=== PATIENT | male | born 1960 | race Caucasian/White ===

== ENCOUNTER 2018-03-01 16:25 | Inpatient (IN) | payer BC, SELFPAY ==
[2018-03-01] VITALS (13 sets, daily range): BP systolic 81–206; BP diastolic 64–127; PULSE 92–122; RESP 14–30; TEMP 36.7–36.9; O2SAT 93–99; BMI 30.1
--- NOTE | 2018-03-01 16:30 | EKG12_ITS ---
Test Reason : REPEAT CP Blood Pressure : / mmHG Vent. Rate : 091 BPM Atrial Rate : 091 BPM P-R Int : 184 ms QRS Dur : 088 ms QT Int : 370 ms P-R-T Axes : 048 046 039 degrees QTc Int : 455 ms Normal sinus rhythm Normal ECG Confirmed by LAURA RICE MD ([id number]), editorial project manager ISSAC VALENCIA ([id number]) on 03/03/2018 1:54:08 PM Referred By: CARI Confirmed By:LAURA RICE MD
--- NOTE | 2018-03-01 16:30 | RAD_ITS ---
STUDY: X-RAY CHEST REASON FOR EXAM: Male, 57 years old. Chest pain TECHNIQUE: Single AP portable view of the chest. COMPARISON: None. FINDINGS: Any left hilar region, there is a questionable spiculated nodule/mass measuring 2.6 x 2.6 cm The lungs are clear and expanded. There is no demonstrated pleural abnormality. Normal size heart. Normal mediastinum and blanca. Normal visualized pulmonary arteries. Normal visualized aortic arch and descending thoracic aorta. Normal visualized thoracic spine. Normal visualized ribs, clavicles, and shoulders. There is no demonstrated abnormality of the visualized soft tissue structures of the upper abdomen. RAD/Chest 1 View (Portable) IMPRESSION: No acute cardiopulmonary disease however, possible left hilar mass. Recommend CT chest to further evaluate Electronically Signed: Luis Velazquez DO at 17:13 EDT Tel , Service support ,
--- NOTE | 2018-03-01 16:37 | NURSING ---
NO OLD EKGS
--- NOTE | 2018-03-01 16:40 | CT_ITS ---
STUDY: CT ABDOMEN AND PELVIS WITH CONTRAST REASON FOR EXAM: Male, 57 years old. Right upper quadrant pain RADIATION DOSAGE (If Supplied By Facility): CTDIvol = ( 18.83 ) mGy, DLP = ( 1865.38 ) mGycm TECHNIQUE: Transaxial images were obtained from the dome of the diaphragm to the symphysis pubis with oral contrast. 100 ml of Isovue 370 contrast was administered. Sagittal and coronal images were reconstructed. Individualized dose optimization techniques were used for this CT. COMPARISON: None. FINDINGS: The visualized lung bases are unremarkable. The visualized portions of the heart are within normal limits. There is decreased attenuation of the liver consistent with steatosis. Normal gallbladder and extrahepatic biliary system. Normal spleen. Normal pancreas. Normal bilateral adrenal glands. Small nonenhancing bilateral renal cysts. No acute renal obstruction Normal visualized stomach. Normal small intestine. There are multiple colonic diverticula consistent with diverticulosis. The appendix is visualized and appears normal. Normal abdominal aorta. Normal inferior vena cava. Normal retroperitoneum. Normal urinary bladder. Normal visualized prostate gland. Normal abdominal wall. Normal osseous structures. CT/Abdomen/Pelvis WITH Contrast IMPRESSION: Grossly unremarkable gallbladder on CT. Mild fatty steatosis of the liver. Unremarkable appendix. Nonenhancing renal cysts. Electronically Signed: Luis Velazquez DO at 18:47 EDT Tel , Service support ,
[2018-03-01] MEDS: Ondansetron 4 MG/2 ML Vial IV (16:52)
[2018-03-01] MEDS: 0.9% Normal Saline 1,000 ML 125 ML IV (16:52)
[2018-03-01] MEDS: HYDROmorphone 1 MG/ML Syringe IV (16:55)
[2018-03-01 17:14] LABS: Absolute Neutrophil Count 13.5 X10^3/uL (2.0-7.7); Basophil# 0.02 X10^3/uL; Basophil% 0.1 % (0-1); Eosinophil# 0.02 X10^3/uL; Eosinophils% 0.1 % (0-5); Hematocrit 45.6 % (40-54); Hemoglobin 15.3 g/dl (13.0-16.5); Lymphocyte % 8.8 % (19-41); Mean Corp Hgb Conc 33.6 g/gl (32-36); Mean Corpuscular Hgb 29.9 pg (27.0-32.0); Mean Corpuscular Volume 89.2 fL (80-94); Mean Platelet Vol. 10.5 fl (6.2-12.0); Monocyte# 0.89 X10^3/uL; Monocyte% 5.6 % (0-10); Neutrophil # 13.45 X10^3/uL (2.7-7.7); Neutrophil % 85.1 % (47-70); Platelet Count 258 K/mm3 (150-450); RBC Distribution Width CV 13.7 % (11.6-14.6); RBC Distribution Width SD 44.3 fl (35.1-43.9); Red Blood Count 5.11 M/mm3 (4.6-6.2); White Blood Count 15.8 K/mm3 (4.4-11.0)
[2018-03-01 17:35] LABS: POSITIVE COUNT NO; POSITIVE DIFFERENTIAL NO; POSITIVE MORPHOLOGY NO
--- NOTE | 2018-03-01 17:35 | CT_ITS ---
STUDY: CTA CHEST REASON FOR EXAM: Male, 57 years old. Right upper quadrant pain and chest pain RADIATION DOSAGE (If Supplied By Facility): CTDIvol = ( 18.83 ) mGy, DLP = ( 1865.38 ) mGycm TECHNIQUE: The examination was performed with the intravenous administration of 100 ml of Isovue 370 contrast material. Post-processing of the angiographic images was performed, with multiplanar reformation and 3D reconstruction. Individualized dose optimization techniques were used for this CT. COMPARISON: None. FINDINGS: Unremarkable thyroid Normal enhancement of the main pulmonary artery and right and left pulmonary arteries. Normal enhancement of the bilateral peripheral pulmonary arteries. There is no demonstrated pulmonary embolism. Normal thoracic aorta and visualized great vessels. There is no demonstrated aortic dissection. Normal heart and pericardium. Normal mediastinum. Normal hilar regions. Normal visualized trachea and bronchi. The lungs are well expanded. Normal pulmonary parenchyma. Normal pleura. Normal chest wall structures. Normal osseous structures. Normal visualized upper abdomen. CT/CTA Chest W/WO Contrast IMPRESSION: Normal CTA chest examination, without a demonstrated pulmonary embolism or arterial dissection. Electronically Signed: Luis Velazquez DO at 18:48 EDT Tel , Service support ,
[2018-03-01 17:41] LABS: AST(SGOT) 22 U/L (15-37); Alanine Aminotransfer ALT/SGPT 48 U/L (16-61); Alkaline Phosphatase 68 U/L (45-117); Anion Gap 10 (5-15); BUN 10 mg/dL (7-18); BUN/Creat Ratio 7.9 RATIO (10-20); Bilirubin, Direct 0.13 mg/dL (0.00-0.30); Calcium,Total 9.3 mg/dL (8.5-10.1); Chloride 104 mmol/L (98-107); Creatinine, Serum 1.26 mg/dL (0.70-1.30); EST Glomerular Filtration Rate 63 mL/min (>60); Est Glom Filt Rate - Afr Amer 76 mL/min (>60); Estimated Creatinine Clearance 66.24 ml/min; Globulin 3.5 g/dL (2.2-4.2); Glucose 116 mg/dL (74-106); Lipase 99 U/L (73-393); Potassium 3.7 mmol/L (3.5-5.1); Protein, Total 7.5 g/dL (6.4-8.2); Sodium Level 141 mmol/L (136-145)
--- NOTE | 2018-03-01 17:46 | EKG12_ITS ---
Test Reason : CP Blood Pressure : / mmHG Vent. Rate : 108 BPM Atrial Rate : 108 BPM P-R Int : 178 ms QRS Dur : 080 ms QT Int : 334 ms P-R-T Axes : 043 003 046 degrees QTc Int : 447 ms Sinus tachycardia Otherwise normal ECG Confirmed by KRYSTAL CHAVIRA, LAURA ([id number]), non linear editor ISSAC VALENCIA ([id number]) on 03/03/2018 1:54:23 PM Referred By: CARI Confirmed By:LAURA RICE MD
[2018-03-01 18:00] LABS: D-Dimer Quantitative (DVT/PE) < 0.27 FEU/ug/m (0.27-0.49)
[2018-03-01 18:05] LABS: Lactic Acid 2.3 mmol/L (0.4-2.0)
--- NOTE | 2018-03-01 19:18 | ED.VISSUMM ---
- ER Visit Summary Date of Service: 03/01/18 Chief Complaint: [Chest pain] History of Present Illness: The patient is a 57 M [presents to the emergency department complaint of chest pain and abdominal pain. Patient states that he woke up at 4 AM with discomfort that was retrosternal and upper abdomen. Patient states the pain was initially intermittent but became more continuous. He describes a sharp pain that currently rates 9 out of 10. Patient states the pain is now underneath his right ribs. Patient states the pain is not pleuritic. He did feel somewhat short of breath with it. He denies any nausea or vomiting. There was no radiation of the pain.] Physical Examination: [HEENT-PERRLA, EOMI. Cranial nerves II through XII grossly intact. TMs clear. Mucous membranes moist. No adenopathy. Cardiovascular-regular rate and rhythm without murmur or ectopy Lungs-clear to auscultation, chest wall stable without crepitus or subcu emphysema Abdomen-normoactive bowel sounds, soft. Patient has tenderness to palpation over right upper quadrant with some guarding. Patient has some mild tenderness over the epigastric region. There is no rebound, rigidity, or perineal signs. Extremities-intact ?4, normal range of motion, normal pulses, atraumatic] Test Results: [EKG obtained on arrival shows sinus tachycardia with a ventricular rate of 108 bpm with no acute ST segment changes. CBC with differential of 15.8, hemoglobin 15 hematocrit 45.6, platelets 258. Chemistries unremarkable. LFTs were normal. Lipase was normal at 99. Troponin was normal. D-dimer was normal at less than 0.27. Lactate was slightly elevated 2.3. On chest x-ray patient was thought to have a questionable hilar mass and CT scan of the chest was recommended. CTA of the chest obtained was normal. CT scan of the abdomen pelvis with IV and p.o. contrast showed nothing significant. The appendix was visualized and was normal. The gallbladder appeared normal. No free air noted. No evidence for bowel obstruction.] Emergency Department Course and Treatment: [Patient initially was medicated with Dilaudid and Zofran. Patient did have an episode where he had sudden onset of some more severe pain and became diaphoretic and hypotensive but I suspect was likely a vasovagal episode that resolved quickly with laying the patient flat.] Treatment Plan: [Admit for further workup and evaluation] patient may need further evaluation including possibly gallbladder ultrasound, HIDA scan, stress testing Disposition: [Admit] Impression: [Chest pain-rule out acute coronary syndrome Abdominal pain-etiology uncertain.] This note was generated with [employer] dictation software. It may contain incorrect words, spelling, and punctuation that were not noted in review of the chart prior to signing ED Disposition - Plan for ED Patient: Chief Complaint: Chest Pain Referrals: Genna Sheppard DO [Primary Care Provider] -
--- NOTE | 2018-03-01 19:29 | PCM.HP.STD ---
Problem List (1) Chest pain Status: Acute (2) Depression Status: Chronic (3) Anxiety Status: Chronic (4) Hyperlipidemia Status: Chronic (5) Hypertension Status: Chronic History of Present Illness Date of Admission: 03/01/18 Chief Complaint: Chest pain. The patient is a 57 year old M with past medical history as mentioned above presented to the emergency room because of chest pain. His symptoms started around 4 AM this morning when he woke up from sleep because of chest pain, retrosternal chest pain, sharp pain, 9 out of 10 in severity, not radiating, associated with mild shortness of breath, initially was severe and then start to ease up but never resolved and without aggravating or relieving factors. He tried Pepto-Bismol which did not help. Couple of hours later, he feels a little bit better, went to work but he continued to have this persistent pain and late afternoon, the pain started to go worse and he decided to come to the emergency room. Later this afternoon, he mentioned that the pain was in the same location but went to his right upper quadrant region. He denied associated nausea vomiting. He denied sweating, dizziness or lightheadedness. Upon arrival to ER, patient was afebrile, tachycardic, blood pressure was repeated. Later, blood pressure started to improve. Routine blood work was remarkable for leukocytosis, otherwise normal. LFT and lipase were unremarkable. D-dimer was normal. Lactic acid was 2.3. Troponin was negative. EKG revealed sinus tachycardia without evidence of acute ischemic changes. Chest x-ray revealed questionable left hilar mass, no acute infiltrate or effusion. CTA chest revealed no evidence of PE, dissection, no evidence of lung mass or hilar mass. CT scan abdomen and pelvis with contrast revealed no evidence of acute intra-abdominal pathology, revealed renal cysts. He is being admitted for chest pain for evaluation as well as leukocytosis and slightly elevated lactic acid. Past Medical History Past Medical History (Chronic Problems): Chronic Problems Depression (Chronic) Anxiety (Chronic) Hyperlipidemia (Chronic) Hypertension (Chronic) Allergies No Known Allergies Allergy (Verified 03/01/18 16:30) Home Medications: Ambulatory Orders Medication Instructions Recorded Atorvastatin Calcium [Lipitor] 20 mg PO DAILY 02/02/17 Losartan Potassium [Cozaar] 50 mg PO DAILY 02/02/17 Risperidone [Risperdal] 0.25 mg PO BID 02/02/17 Venlafaxine XR [Effexor Xr] 225 mg PO DAILY 02/02/17 Surgical History: herniorrhaphy, - - Rotator cuff surgery. Psychiatric History: Anxiety, Depression Smoking Status: Former smoker Alcohol: Occasional Drugs: None - *Family History Maternal History Items: No pertinent history Paternal History Items: No pertinent history Review of Systems Constitutional: Denies: Anorexia, Chills, Fever, Weakness Eyes: Denies: Blurred vision, Double vision, Drainage, Redness HEENT: Denies: Difficulty Hearing, Ear Pain, Eye Pain, Nasal Congestion, Sore Throat Cardiovascular: Reports: Chest Pain. Denies: Edema, Heaviness, Light Headedness, Orthopnea, Palpitations, Syncope Respiratory: Reports: Shortness of Breath. Denies: Cough, Hemoptysis, Pleuritic Pain, Sputum production, Wheezing Gastrointestinal: Denies: Abdominal Pain, Constipation, Diarrhea, Nausea, Vomiting Genitourinary: Denies: Dysuria, Frequency, Hematuria Musculoskeletal: Denies: Arm Pain, Back Pain, Foot Pain Skin: Denies: Dryness, Rash Neurological: Denies: Balance problems, Double vision, Change in Speech, Slurred speech, Confusion, Focal weakness, Headaches, Incoordination, Numbness Psychiatric: Reports: Anxiety, Depression Endocrine: Denies: Change in Body Habitus, Polydipsia VTE Information - Inpt Only VTE Present on Admission: No VTE Mechan Device Prophylaxis: None VTE Pharm Prophylaxis ordered?: Yes Patient Problems: Active and Suspected Problems Chest pain (Acute) - Physical Exam General: Alert, Oriented x3, Cooperative, No apparent distress HEENT: Atraumatic, PERRLA, EOMI, Normocephalic Oral: Moist Mucosa, No Gingival or Mucosal Lesions/ Ulcerations Neck: Supple, No JVD, Negative Carotid Bruits, Trachea Midline, Thyroid Normal Size and Texture Lungs: Clear to auscultation, No rhonchi, No wheeze, No rales, Diminished Cardiovascular: Regular rate, Regular Rhythm, Normal S1, Normal S2, No murmurs, PMI Normal, Tachycardic Abdomen: Bowel Sounds Present, Soft, Non Tender, Non-Distended, No Hepato-splenomegaly Extremities: No clubbing, No cyanosis, No edema Skin: No rashes, No breakdown Lymphatic: No Cervical, Supraclavicular, or Inguinal Adenopathy Neurological: Cranial nerves II-XII grossly intact, Motor Exam 5/5 strength throughout Psych/Mental Status: Normal Affect, Appropriate, Alert and oriented to time, place, person, mood and affect Vital Signs Temp Pulse Resp BP Pulse Ox 98.1 F 122 H 30 H 151/97 H 93 03/01/18 16:27 03/01/18 18:44 03/01/18 18:44 03/01/18 18:44 03/01/18 18:44 Oxygen Flow Rate (L/min) 2 Oxygen Delivery Method Nasal Cannula Weight: 203 lb 11.314 oz Body Mass Index (BMI) 30.0 Laboratory Tests Past 24 Hrs 03/01/18 03/01/18 03/01/18 16:37 16:37 16:37 WBC 15.8 H RBC 5.11 Hgb 15.3 Hct 45.6 MCV 89.2 MCH 29.9 MCHC 33.6 RDW 13.7 RDW Differential 44.3 H Plt Count 258 MPV 10.5 Immature Gran % (Auto) 0.300 Neut % (Auto) 85.1 H Lymph % (Auto) 8.8 L [place] % (Auto) 5.6 Eos % (Auto) 0.1 Baso % (Auto) 0.1 Absolute Neuts (auto) 13.5 H Absolute Lymphs (auto) 1.40 Total Counted Not Reportable D-Dimer Quant (PE/DVT) < 0.27 L Sodium 141 Potassium 3.7 Chloride 104 Carbon Dioxide 27.0 Anion Gap 10 BUN 10 Creatinine 1.26 Estim Creat Clear Calc 66.24 Est GFR (MDRD) Af Amer 76 Est GFR (MDRD) Non-Af 63 BUN/Creatinine Ratio 7.9 L Glucose 116 H Lactic Acid Calcium 9.3 Total Bilirubin 0.60 Direct Bilirubin 0.13 AST 22 ALT 48 Alkaline Phosphatase 68 Troponin I < 0.015 Total Protein 7.5 Albumin 4.0 Globulin 3.5 Lipase 99 03/01/18 16:48 WBC RBC Hgb Hct MCV MCH MCHC RDW RDW Differential Plt Count MPV Immature Gran % (Auto) Neut % (Auto) Lymph % (Auto) [place] % (Auto) Eos % (Auto) Baso % (Auto) Absolute Neuts (auto) Absolute Lymphs (auto) Total Counted D-Dimer Quant (PE/DVT) Sodium Potassium Chloride Carbon Dioxide Anion Gap BUN Creatinine Estim Creat Clear Calc Est GFR (MDRD) Af Amer Est GFR (MDRD) Non-Af BUN/Creatinine Ratio Glucose Lactic Acid 2.3 H Calcium Total Bilirubin Direct Bilirubin AST ALT Alkaline Phosphatase Troponin I Total Protein Albumin Globulin Lipase Clinical Impression(s) from Imaging Studies Chest X-Ray 03/01/18 16:30 IMPRESSION: No acute cardiopulmonary disease however, possible left hilar mass. Recommend CT chest to further evaluate Electronically Signed: Luis Velazquez DO at 17:13 EDT Tel , Service support , Abdomen/Pelvis CT 03/01/18 16:40 IMPRESSION: Grossly unremarkable gallbladder on CT. Mild fatty steatosis of the liver. Unremarkable appendix. Nonenhancing renal cysts. Electronically Signed: Luis Velazquez DO at 18:47 EDT Tel , Service support , Chest CTA 03/01/18 17:35 IMPRESSION: Normal CTA chest examination, without a demonstrated pulmonary embolism or arterial dissection. Electronically Signed: Luis Velazquez DO at 18:48 EDT Tel , Service support , Assessment/Plan All Active Problems Chest pain (Acute) This is a 57 years old male patient presented to the emergency room because of chest pain, found to have leukocytosis and and slightly elevated lactic acid and he is being admitted for evaluation. #1 chest pain/retrosternal pain: Unclear etiology, it is cardiac versus GI etiology. Cardiac risk factors are age, past history of smoking, hypertension hyperlipidemia. No family history of premature CAD. EKG revealed sinus tachycardia, no acute ischemic changes. Troponin is negative. CTA chest negative for PE or dissection. CT scan abdomen and pelvis showed no acute intra-abdominal pathology. LFT and lipase were unremarkable. Patient is slightly tachycardic and hypertensive. Then: Admit to PCU for observation, cardiac monitoring, serial cardiac enzymes, IV fluids, IV morphine as needed, IV antiemetics, IV Pepcid twice daily, Mylanta as needed, repeat CBC and CMP as well as lipase tomorrow morning, nuclear stress test tomorrow morning. #2 leukocytosis/mild lactic acidosis: Without evidence of infection. Chest x-ray showed no acute infiltrate. Urinalysis pending. He denies any other symptoms. He is afebrile. This is probably due to stress, pain and anxiety. Plan to follow urinalysis, IV fluids, repeat lactic acid 3 hours, repeat CBC tomorrow morning. #3 hypertension: Upon arrival to ER, blood pressure was elevated, improved over time. Plan to continue losartan and start IV hydralazine as needed. #4 hyperlipidemia: Continue Lipitor. #5 anxiety/depression: Continue Effexor and risperidone. #6 DVT prophylaxis subcu Lovenox. This note was generated with [employer] dictation software. It may contain incorrect words, spelling, and punctuation that were not noted in checking the note before signing. Code Visit OBSV E&M: [id number] Initial observation care L3
--- NOTE | 2018-03-01 19:39 | HP.PCM_ITS ---
Problem List (1) Chest pain Status: Acute (2) Depression Status: Chronic (3) Anxiety Status: Chronic (4) Hyperlipidemia Status: Chronic (5) Hypertension Status: Chronic History of Present Illness Date of Admission: 03/01/18 Chief Complaint: Chest pain. The patient is a 57 year old M with past medical history as mentioned above presented to the emergency room because of chest pain. His symptoms started around 4 AM this morning when he woke up from sleep because of chest pain, retrosternal chest pain, sharp pain, 9 out of 10 in severity, not radiating, associated with mild shortness of breath, initially was severe and then start to ease up but never resolved and without aggravating or relieving factors. He tried Pepto-Bismol which did not help. Couple of hours later, he feels a little bit better, went to work but he continued to have this persistent pain and late afternoon, the pain started to go worse and he decided to come to the emergency room. Later this afternoon, he mentioned that the pain was in the same location but went to his right upper quadrant region. He denied associated nausea vomiting. He denied sweating, dizziness or lightheadedness. Upon arrival to ER, patient was afebrile, tachycardic, blood pressure was repeated. Later, blood pressure started to improve. Routine blood work was remarkable for leukocytosis, otherwise normal. LFT and lipase were unremarkable. D-dimer was normal. Lactic acid was 2.3. Troponin was negative. EKG revealed sinus tachycardia without evidence of acute ischemic changes. Chest x-ray revealed questionable left hilar mass, no acute infiltrate or effusion. CTA chest revealed no evidence of PE, dissection, no evidence of lung mass or hilar mass. CT scan abdomen and pelvis with contrast revealed no evidence of acute intra-abdominal pathology, revealed renal cysts. He is being admitted for chest pain for evaluation as well as leukocytosis and slightly elevated lactic acid. Past Medical History Past Medical History (Chronic Problems): Chronic Problems Depression (Chronic) Anxiety (Chronic) Hyperlipidemia (Chronic) Hypertension (Chronic) Allergies No Known Allergies Allergy (Verified 03/01/18 16:30) Home Medications: Ambulatory Orders Medication Instructions Recorded Atorvastatin Calcium [Lipitor] 20 mg PO DAILY 02/02/17 Losartan Potassium [Cozaar] 50 mg PO DAILY 02/02/17 Risperidone [Risperdal] 0.25 mg PO BID 02/02/17 Venlafaxine XR [Effexor Xr] 225 mg PO DAILY 02/02/17 Surgical History: herniorrhaphy, - - Rotator cuff surgery. Psychiatric History: Anxiety, Depression Smoking Status: Former smoker Alcohol: Occasional Drugs: None - *Family History Maternal History Items: No pertinent history Paternal History Items: No pertinent history Review of Systems Constitutional: Denies: Anorexia, Chills, Fever, Weakness Eyes: Denies: Blurred vision, Double vision, Drainage, Redness HEENT: Denies: Difficulty Hearing, Ear Pain, Eye Pain, Nasal Congestion, Sore Throat Cardiovascular: Reports: Chest Pain. Denies: Edema, Heaviness, Light Headedness , Orthopnea, Palpitations, Syncope Respiratory: Reports: Shortness of Breath. Denies: Cough, Hemoptysis, Pleuritic Pain, Sputum production, Wheezing Gastrointestinal: Denies: Abdominal Pain, Constipation, Diarrhea, Nausea, Vomiting Genitourinary: Denies: Dysuria, Frequency, Hematuria Musculoskeletal: Denies: Arm Pain, Back Pain, Foot Pain Skin: Denies: Dryness, Rash Neurological: Denies: Balance problems, Double vision, Change in Speech, Slurred speech, Confusion, Focal weakness, Headaches, Incoordination, Numbness Psychiatric: Reports: Anxiety, Depression Endocrine: Denies: Change in Body Habitus, Polydipsia VTE Information - Inpt Only VTE Present on Admission: No VTE Mechan Device Prophylaxis: None VTE Pharm Prophylaxis ordered?: Yes Patient Problems: Active and Suspected Problems Chest pain (Acute) - Physical Exam General: Alert, Oriented x3, Cooperative, No apparent distress HEENT: Atraumatic, PERRLA, EOMI, Normocephalic Oral: Moist Mucosa, No Gingival or Mucosal Lesions/ Ulcerations Neck: Supple, No JVD, Negative Carotid Bruits, Trachea Midline, Thyroid Normal Size and Texture Lungs: Clear to auscultation, No rhonchi, No wheeze, No rales, Diminished Cardiovascular: Regular rate, Regular Rhythm, Normal S1, Normal S2, No murmurs, PMI Normal, Tachycardic Abdomen: Bowel Sounds Present, Soft, Non Tender, Non-Distended, No Hepato- splenomegaly Extremities: No clubbing, No cyanosis, No edema Skin: No rashes, No breakdown Lymphatic: No Cervical, Supraclavicular, or Inguinal Adenopathy Neurological: Cranial nerves II-XII grossly intact, Motor Exam 5/5 strength throughout Psych/Mental Status: Normal Affect, Appropriate, Alert and oriented to time, place, person, mood and affect Vital Signs Temp Pulse Resp BP Pulse Ox 98.1 F 122 H 30 H 151/97 H 93 03/01/18 16:27 03/01/18 18:44 03/01/18 18:44 03/01/18 18:44 03/01/18 18:44 Oxygen Flow Rate (L/min) 2 Oxygen Delivery Method Nasal Cannula Weight: 203 lb 11.314 oz Body Mass Index (BMI) 30.0 Laboratory Tests Past 24 Hrs 03/01/18 03/01/18 03/01/18 16:37 16:37 16:37 WBC 15.8 H RBC 5.11 Hgb 15.3 Hct 45.6 MCV 89.2 MCH 29.9 MCHC 33.6 RDW 13.7 RDW Differential 44.3 H Plt Count 258 MPV 10.5 Immature Gran % (Auto) 0.300 Neut % (Auto) 85.1 H Lymph % (Auto) 8.8 L [place] % (Auto) 5.6 Eos % (Auto) 0.1 Baso % (Auto) 0.1 Absolute Neuts (auto) 13.5 H Absolute Lymphs (auto) 1.40 Total Counted Not Reportable D-Dimer Quant (PE/DVT) < 0.27 L Sodium 141 Potassium 3.7 Chloride 104 Carbon Dioxide 27.0 Anion Gap 10 BUN 10 Creatinine 1.26 Estim Creat Clear Calc 66.24 Est GFR (MDRD) Af Amer 76 Est GFR (MDRD) Non-Af 63 BUN/Creatinine Ratio 7.9 L Glucose 116 H Lactic Acid Calcium 9.3 Total Bilirubin 0.60 Direct Bilirubin 0.13 AST 22 ALT 48 Alkaline Phosphatase 68 Troponin I < 0.015 Total Protein 7.5 Albumin 4.0 Globulin 3.5 Lipase 99 03/01/18 16:48 WBC RBC Hgb Hct MCV MCH MCHC RDW RDW Differential Plt Count MPV Immature Gran % (Auto) Neut % (Auto) Lymph % (Auto) [place] % (Auto) Eos % (Auto) Baso % (Auto) Absolute Neuts (auto) Absolute Lymphs (auto) Total Counted D-Dimer Quant (PE/DVT) Sodium Potassium Chloride Carbon Dioxide Anion Gap BUN Creatinine Estim Creat Clear Calc Est GFR (MDRD) Af Amer Est GFR (MDRD) Non-Af BUN/Creatinine Ratio Glucose Lactic Acid 2.3 H Calcium Total Bilirubin Direct Bilirubin AST ALT Alkaline Phosphatase Troponin I Total Protein Albumin Globulin Lipase Clinical Impression(s) from Imaging Studies Chest X-Ray 03/01/18 16:30 IMPRESSION: No acute cardiopulmonary disease however, possible left hilar mass. Recommend CT chest to further evaluate Electronically Signed: Luis Velazquez DO at 17:13 EDT Tel , Service support , Abdomen/Pelvis CT 03/01/18 16:40 IMPRESSION: Grossly unremarkable gallbladder on CT. Mild fatty steatosis of the liver. Unremarkable appendix. Nonenhancing renal cysts. Electronically Signed: Luis Velazquez DO at 18:47 EDT Tel , Service support , Chest CTA 03/01/18 17:35 IMPRESSION: Normal CTA chest examination, without a demonstrated pulmonary embolism or arterial dissection. Electronically Signed: Luis Velazquez DO at 18:48 EDT Tel , Service support , Assessment/Plan All Active Problems Chest pain (Acute) This is a 57 years old male patient presented to the emergency room because of chest pain, found to have leukocytosis and and slightly elevated lactic acid and he is being admitted for evaluation. #1 chest pain/retrosternal pain: Unclear etiology, it is cardiac versus GI etiology. Cardiac risk factors are age, past history of smoking, hypertension hyperlipidemia. No family history of premature CAD. EKG revealed sinus tachycardia, no acute ischemic changes. Troponin is negative. CTA chest negative for PE or dissection. CT scan abdomen and pelvis showed no acute intra -abdominal pathology. LFT and lipase were unremarkable. Patient is slightly tachycardic and hypertensive. Then: Admit to PCU for observation, cardiac monitoring, serial cardiac enzymes, IV fluids, IV morphine as needed, IV antiemetics, IV Pepcid twice daily, Mylanta as needed, repeat CBC and CMP as well as lipase tomorrow morning, nuclear stress test tomorrow morning. #2 leukocytosis/mild lactic acidosis: Without evidence of infection. Chest x- ray showed no acute infiltrate. Urinalysis pending. He denies any other symptoms. He is afebrile. This is probably due to stress, pain and anxiety. Plan to follow urinalysis, IV fluids, repeat lactic acid 3 hours, repeat CBC tomorrow morning. #3 hypertension: Upon arrival to ER, blood pressure was elevated, improved over time. Plan to continue losartan and start IV hydralazine as needed. #4 hyperlipidemia: Continue Lipitor. #5 anxiety/depression: Continue Effexor and risperidone. #6 DVT prophylaxis subcu Lovenox. This note was generated with [employer] dictation software. It may contain incorrect words, spelling, and punctuation that were not noted in checking the note before signing. Code Visit OBSV E&M: 00141 Initial observation care L3
--- NOTE | 2018-03-01 19:40 | NURSING ---
Called ER rn utilization management um Erica at this time to inform that PCU is ready for admission at 194
[2018-03-01 19:48] LABS: Bacteria 0 SEEN /hpf (None Seen); Mucous, Urine 0 SEEN /hpf (<or=2+); White Blood Cells 0 SEEN /hpf (0-5)
[2018-03-01 19:53] LABS: Color, Urine Yellow (Yellow); Glucose, Dipstick Normal (Normal); Ketone-Dipstick Negative (Negative); Leukocyte Esterase-Dipstick Negative /ul (Negative); Nitrite-Dipstick Negative (Negative); Occult Blood-Urine 25 /ul (Negative); Protein-Dipstick 15 mg/dl (Negative); Urine Bilirubin Dipstick Negative (Negative); Urine Clarity Clear (Clear); Urine Urobilinogen Normal (Normal)
--- NOTE | 2018-03-01 20:00 | EKG12_ITS ---
Test Reason : CHEST PAIN Blood Pressure : / mmHG Vent. Rate : 106 BPM Atrial Rate : 106 BPM P-R Int : 194 ms QRS Dur : 084 ms QT Int : 332 ms P-R-T Axes : 043 009 030 degrees QTc Int : 441 ms Sinus tachycardia Otherwise normal ECG When compared with ECG of 01-MAR-2018 17:40, MANUAL COMPARISON REQUIRED, DATA IS UNCONFIRMED Confirmed by KRYSTAL CHAVIRA, LAURA ([id number]), desk editor ISSAC VALENCIA ([id number]) on 03/07/2018 2:14:19 PM Referred By: ALEKSANDAR Confirmed By:LAURA RICE MD
[2018-03-01 20:22] LABS: Red Blood Cells-Urine 0-5 SEEN /hpf (0-5); Squamous Epithelial Cells - UA 0-5 SEEN /hpf (0-5)
[2018-03-01 21:07] LABS: Reflex Lactate? Y
--- NOTE | 2018-03-01 21:20 | EKG12_ITS ---
Test Reason : CHEST PAIN Blood Pressure : / mmHG Vent. Rate : 104 BPM Atrial Rate : 104 BPM P-R Int : 194 ms QRS Dur : 084 ms QT Int : 336 ms P-R-T Axes : 045 018 022 degrees QTc Int : 441 ms Sinus tachycardia Otherwise normal ECG When compared with ECG of 01-MAR-2018 21:26, MANUAL COMPARISON REQUIRED, DATA IS UNCONFIRMED Confirmed by KRYSTAL CHAVIRA, LAURA ([id number]), mapping editor ISSAC VALENCIA ([id number]) on 03/07/2018 2:14:06 PM Referred By: ALEKSANDAR Confirmed By:LAURA RICE MD
[2018-03-01] MEDS: Atorvastatin Calcium 20 MG Tablet PO (21:29)
[2018-03-01] MEDS: 0.9% Normal Saline 1,000 ML 100 ML IV (21:29)
[2018-03-01] MEDS: Morphine 2 MG/ML Syringe IV (21:29)
[2018-03-01 22:08] LABS: Lactic Acid 1.8 mmol/L (0.4-2.0)
--- NOTE | 2018-03-01 22:48 | EKG12_ITS ---
Test Reason : ADM EKG Blood Pressure : / mmHG Vent. Rate : 107 BPM Atrial Rate : 107 BPM P-R Int : 192 ms QRS Dur : 082 ms QT Int : 338 ms P-R-T Axes : 036 004 032 degrees QTc Int : 451 ms Sinus tachycardia Otherwise normal ECG When compared with ECG of 01-MAR-2018 17:40, MANUAL COMPARISON REQUIRED, DATA IS UNCONFIRMED Confirmed by KRYSTAL CHAVIRA, LAURA ([id number]), editor newspaper ISSAC VALENCIA ([id number]) on 03/07/2018 2:14:31 PM Referred By: VENITA Confirmed By:LAURA RICE MD
[2018-03-01] MEDS: Mag Hydrox/Al Hydrox/Simeth 30 ML UDC 15 ML PO (22:53)
[2018-03-01] MEDS: RisperiDONE 0.25 MG Tablet PO (22:58)
[2018-03-01] MEDS: Acetaminophen 325 MG Tablet 650 MG PO (23:47)
[2018-03-02] VITALS (14 sets, daily range): BP systolic 132–179; BP diastolic 81–102; PULSE 93–111; RESP 14–18; TEMP 36.8–37.7; O2SAT 93–98
--- NOTE | 2018-03-02 05:55 | EKG12_ITS ---
Test Reason : AM EKG Blood Pressure : / mmHG Vent. Rate : 101 BPM Atrial Rate : 101 BPM P-R Int : 190 ms QRS Dur : 086 ms QT Int : 348 ms P-R-T Axes : 047 013 035 degrees QTc Int : 451 ms Sinus tachycardia Otherwise normal ECG When compared with ECG of 01-MAR-2018 22:41, MANUAL COMPARISON REQUIRED, DATA IS UNCONFIRMED Confirmed by KRYSTAL CHAVIRA, LAURA ([id number]), design editor ISSAC VALENCIA ([id number]) on 03/07/2018 2:13:35 PM Referred By: ALEKSANDAR Confirmed By:LAURA RICE MD
[2018-03-02 06:09] LABS: International Normalized Ratio 1.1; Partial Thromboplast Time 26.5 Seconds (24.1-36.2); Prothrombin Time (Protime)PT. 14.3 SECONDS (11.7-14.9)
[2018-03-02] MEDS: Acetaminophen 325 MG Tablet 650 MG PO ×2 (06:23→21:05)
[2018-03-02] MEDS: Aspirin E.C. 81 MG Tablet PO (06:23)
[2018-03-02] MEDS: 0.9% Normal Saline 1,000 ML 100 ML IV ×2 (06:23→17:42)
[2018-03-02] MEDS: Losartan Potassium 50 MG Tablet PO (06:24)
[2018-03-02 06:45] LABS: Absolute Lymphocyte Count 1.63 X10^3/ul (0.83-4.51); Absolute Neutrophil Count 11.7 X10^3/uL (2.0-7.7); Basophil# 0.02 X10^3/uL; Basophil% 0.1 % (0-1); Eosinophil# 0.03 X10^3/uL; Eosinophils% 0.2 % (0-5); Hematocrit 40.9 % (40-54); Hemoglobin 13.6 g/dl (13.0-16.5); Lymphocyte # 1.63 X10^3/ul (4.0); Lymphocyte % 10.9 % (19-41); Mean Corp Hgb Conc 33.3 g/gl (32-36); Mean Corpuscular Hgb 30.1 pg (27.0-32.0); Mean Corpuscular Volume 90.5 fL (80-94); Mean Platelet Vol. 10.4 fl (6.2-12.0); Monocyte# 1.56 X10^3/uL; Monocyte% 10.4 % (0-10); Neutrophil # 11.74 X10^3/uL (2.7-7.7); Neutrophil % 78.1 % (47-70); Platelet Count 218 K/mm3 (150-450); RBC Distribution Width CV 13.8 % (11.6-14.6); RBC Distribution Width SD 45.4 fl (35.1-43.9); Red Blood Count 4.52 M/mm3 (4.6-6.2)
[2018-03-02 06:50] LABS: AST(SGOT) 25 U/L (15-37); Alanine Aminotransfer ALT/SGPT 48 U/L (16-61); Albumin, Serum 3.2 g/dL (3.2-5.0); Alkaline Phosphatase 56 U/L (45-117); Anion Gap 6 (5-15); BUN 12 mg/dL (7-18); BUN/Creat Ratio 10.5 RATIO (10-20); Calcium,Total 8.3 mg/dL (8.5-10.1); Chloride 106 mmol/L (98-107); Creatinine, Serum 1.14 mg/dL (0.70-1.30); EST Glomerular Filtration Rate 71 mL/min (>60); Est Glom Filt Rate - Afr Amer 86 mL/min (>60); Estimated Creatinine Clearance 73.22 ml/min; Globulin 3.2 g/dL (2.2-4.2); Glucose 115 mg/dL (74-106); Lipase 95 U/L (73-393); Potassium 3.9 mmol/L (3.5-5.1); Protein, Total 6.4 g/dL (6.4-8.2); Sodium Level 141 mmol/L (136-145)
[2018-03-02 06:56] LABS: Differential Indicated SCAN CRITERIA MET; POSITIVE COUNT NO; POSITIVE DIFFERENTIAL YES; POSITIVE MORPHOLOGY NO
[2018-03-02 07:04] LABS: Differential Comment SCANNED
[2018-03-02] MEDS: Morphine 2 MG/ML Syringe IV ×2 (11:34→21:05)
[2018-03-02] MEDS: 0.9% NaCl Peripheral Flush Adult/Peds IV ×2 (11:34→21:05)
--- NOTE | 2018-03-02 12:02 | STRESSREP ---
Stress Test Report Pharmacologic myocardial perfusion stress test. 57-year-old man with a history of chest pain. Medications: Aspirin Lipitor Lovenox famotidine losartan. Stress protocol: Resting EKG demonstrates normal sinus rhythm with a rate of 93 bpm normal intervals and noted resting blood pressure is 152/102 mmHg. 0.4 mg of regadenoson was infused per usual protocol followed by Intravenous and flush injection continuous EKG monitoring was performed the maximum heart rate attained was 120 bpm which was 72% of maximum predicted heart rate the maximum workload attained was 1 metabolic equivalent. At rest were no ST or T-wave changes noted suggest abnormal flow reserve at peak infusion no ST or T-wave changes were noted suggest abnormal flow reserve. The resting blood pressure is 150-102 and the final blood pressure was 152/98 mmHg. Myocardial perfusion protocol. 14.1 mCi of technetium 99m sestamibi was injected at rest. 0.4 mg regadenoson was infused per usual protocol. Peak infusion 41.6 mCi of technetium 99m sestamibi was injected stress images were obtained stress and rest images were reconstructed and compared in the short axis vertical long and horizontal long axis. Gated images were also obtained Perfusion SPECT analysis: Review of the stress images demonstrate normal uptake of tracer noted in all areas of the myocardium. The resting images similarly demonstrate normal uptake of tracer noted in all areas of the myocardium. No areas of reversibility are noted suggest ischemia no previous infarct is noted. Gated SPECT analysis: The gated ejection fraction is noted to be 57%. Conclusion: Normal pharmacologic myocardial perfusion stress test. Preserved ejection fraction.
--- NOTE | 2018-03-02 12:08 | PCM.PN.HOSP ---
Patient Problems: Active and Suspected Problems Chest pain (Acute) Subjective: 57-year-old male with past medical history of depression, anxiety, hyperlipidemia and hypertension. Was admitted via the ED on 03/01/2018 with a complaint of chest pain which started around 4 AM on morning of admission. He woke him up from sleep and which was retrosternal, sharp, 9 out of 10, nonradiating and assisted with mild shortness of breath. He thought it was due to GI pathology and took Pepto-Bismol but did not help. Pain persisted throughout the day and so he decided to come to the ED. He denied any sweating, dizziness or lightheadedness. Troponin was negative, lactic acid was slightly elevated at 2.3. D-dimer was normal, EKG shows sinus tachycardia with no acute ST changes. Chest x-ray revealed questionable left hilar mass and CT revealed no evidence of PE, dissection, no evidence of lung mass or hilar mass. CT abdomen and pelvis were also negative apart from analysis. He was admitted to be worked up for chest pain. Seen and examined. He had no complaints and says chest pain was now about 2/10. His was at his bedside. He denied any fever or chills, any, any shortness of breath, any abdominal pain, any diarrhea vomiting. Review of systems otherwise negative. Vitals/I&O's: Vital Signs Temp Pulse Resp BP Pulse Ox 98.7 F 94 18 179/92 H 97 03/02/18 11:32 03/02/18 11:32 03/02/18 11:32 03/02/18 11:32 03/02/18 11:32 Oxygen Flow Rate (L/min) 1 Oxygen Delivery Method Room Air Weight: 203 lb 11.314 oz Body Mass Index (BMI) 30.0 Intake and Output for Last 24 Hours 02/28/18 03/01/18 03/02/18 23:59 23:59 23:59 Intake Total 595 / 595 652 / 652 Balance 595 / 595 652 / 652 General: Alert, Oriented x3, Cooperative, No apparent distress HEENT: Atraumatic, PERRLA, EOMI, Normocephalic Oral: Moist Mucosa Neck: Supple, No JVD, Negative Carotid Bruits Lungs: Clear to auscultation, Normal air movement Cardiovascular: Regular rate, Regular Rhythm, Normal S1, Normal S2, No murmurs Abdomen: Bowel Sounds Present, Soft, Non Tender, Non-Distended, No Hepato-splenomegaly Extremities: No clubbing, No cyanosis, No edema, Capillary Refill Less than 3 Seconds Skin: No rashes, No breakdown Musculoskeletal: No Tenderness to Palpation of Joints or Extremities Lymphatic: No Cervical, Supraclavicular, or Inguinal Adenopathy Neurological: Cranial nerves II-XII grossly intact Psych/Mental Status: Normal Affect, Appropriate, Alert and oriented to time, place, person, mood and affect Laboratory Results 03/01/18 19:40: Urine Color Yellow, Urine Clarity Clear, Urine pH 8.0, Ur Specific [place] 1.010, Urine Protein 15 H, Urine Glucose (UA) Normal, Urine Ketones Negative, Urine Occult Blood 25 H, Urine Nitrite Negative, Urine Bilirubin Negative, Urine Urobilinogen Normal, Ur Leukocyte Esterase Negative, Urine RBC 0-5 SEEN, Urine WBC 0 SEEN, Ur Squamous Epith Cells 0-5 SEEN, Urine Bacteria 0 SEEN, Urine Mucus 0 SEEN 03/01/18 21:34: Troponin I < 0.015 03/01/18 21:34: Lactic Acid 1.8 03/01/18 23:20: Troponin I < 0.015 03/02/18 05:35: WBC 15.0 H, RBC 4.52 L, Hgb 13.6, Hct 40.9, MCV 90.5, MCH 30.1, MCHC 33.3, RDW 13.8, RDW Differential 45.4 H, Plt Count 218, MPV 10.4, Immature Gran % (Auto) 0.300, Neut % (Auto) 78.1 H, Lymph % (Auto) 10.9 L, [place] % (Auto) 10.4 H, Eos % (Auto) 0.2, Baso % (Auto) 0.1, Absolute Neuts (auto) 11.7 H, Absolute Lymphs (auto) 1.63, Total Counted Not Reportable, Differential Comment SCANNED, Diff Path Review December03/02/18 05:35: Sodium 141, Potassium 3.9, Chloride 106, Carbon Dioxide 29.0, Anion Gap 6, BUN 12, Creatinine 1.14, Estim Creat Clear Calc 73.22, Est GFR (MDRD) Af Amer 86, Est GFR (MDRD) Non-Af 71, BUN/Creatinine Ratio 10.5, Glucose 115 H, Calcium 8.3 L, Total Bilirubin 0.70, AST 25, ALT 48, Alkaline Phosphatase 56, Total Protein 6.4, Albumin 3.2, Globulin 3.2, Albumin/Globulin Ratio 1.0, Lipase 95 03/02/18 05:35: PT 14.3, INR 1.1, APTT 26.5 Current Medications Acetaminophen (Tylenol) 650 mg PO Q6H PRN PRN PRN Reason: Fever, headache, pain Last Admin: 03/02/18 06:23 Dose: 650 mg Al Hydroxide/Mg Hydroxide (Mylanta Ii) 15 ml PO Q6H PRN PRN PRN Reason: HEARTBURN OR INDIGESTION Last Admin: 03/01/18 22:53 Dose: 15 ml Aspirin (Ecotrin) 81 mg PO DAILY@0800 [facility] Last Admin: 03/02/18 06:23 Dose: 81 mg Atorvastatin Calcium (Lipitor) 20 mg PO QHS [facility] Last Admin: 03/01/18 21:29 Dose: 20 mg Enoxaparin Sodium (Lovenox) 40 mg SC DAILY [facility] Hydralazine HCl (Apresoline Iv) 10 mg IV Q8H PRN PRN PRN Reason: for SBOP>160 Sodium Chloride () 1,000 mls @ 100 mls/hr IV .Q10H [facility] Last Admin: 03/02/18 06:23 Dose: 100 mls/hr Famotidine 20 mg/ Sodium (Chloride) 10 mls @ 300 mls/hr IV Q12 [facility] Last Admin: 03/02/18 08:53 Dose: 300 mls/hr Losartan Potassium (Cozaar) 50 mg PO DAILY [facility] Last Admin: 03/02/18 06:24 Dose: 50 mg Magnesium Hydroxide (Milk Of Magnesia) 30 ml PO DAILY PRN PRN Reason: Constipation Morphine Sulfate () 1 - 2 mg IV Q4H PRN PRN PRN Reason: SEVERE PAIN () Last Admin: 03/02/18 11:34 Dose: 2 mg Ondansetron HCl (Zofran) 4 mg IV Q6H PRN PRN PRN Reason: NAUSEA/VOMITING Risperidone (Risperdal) 0.25 mg PO BID [facility] Last Admin: 03/01/18 22:58 Dose: 0.25 mg Sodium Chloride () 5 - 30 ml IV UD PRN PRN Reason: SALINE FLUSH Last Admin: 03/02/18 11:34 Dose: 10 ml Venlafaxine HCl (Effexor Xr) 150 mg PO DAILY [facility] Venlafaxine HCl (Effexor Xr) 75 mg PO DAILY [facility] Medical Necessity - Tobacco Use Smoking Status: Former smoker Assessment/Plan All Active Problems Chest pain (Acute) 7-year-old male admitted with a complaint of chest pain. He is being evaluated for chest pain. 1. Atypical Chest pain chest pain now resolving. Hasnt had chest pain like this before vitals: stable EKG showed no acute ST changes, troponins were negative. CTA negaitve for any PE or DVT. stress test done today is also negative. on aspirin and SL nitroglycerin prn also on IV pepcid 2. Hypertension poorly controlled. BP is 179/102 at time of review on losartan 50 mg daily; monitor and adjust as needed. IV hydralazine as needed 3. Hyperlipidemia: on statin. 4. Anxiety/depression: on effexor and risperidone 5. Leucocytosis: likely reactive. Wbc was 15.8 on admission; no focus of infection. wbc is 15 this morning. Lactic acid was initially 2.3 but trended down to 1.8. Will monitor 6. DVT prophylaxis: Subcu Lovenox This note was generated with [employer] dictation software. It may contain incorrect words, spelling, and punctuation that were not noted in checking the note before signing. Code Visit OBSV E&M: 56644 Subsequent observation care L3
--- NOTE | 2018-03-02 12:16 | PN_ITS ---
Patient Problems: Active and Suspected Problems Chest pain (Acute) Subjective: 57-year-old male with past medical history of depression, anxiety, hyperlipidemia and hypertension. Was admitted via the ED on 03/01/2018 with a complaint of chest pain which started around 4 AM on morning of admission. He woke him up from sleep and which was retrosternal, sharp, 9 out of 10, nonradiating and assisted with mild shortness of breath. He thought it was due to GI pathology and took Pepto-Bismol but did not help. Pain persisted throughout the day and so he decided to come to the ED. He denied any sweating , dizziness or lightheadedness. Troponin was negative, lactic acid was slightly elevated at 2.3. D-dimer was normal, EKG shows sinus tachycardia with no acute ST changes. Chest x-ray revealed questionable left hilar mass and CT revealed no evidence of PE, dissection, no evidence of lung mass or hilar mass. CT abdomen and pelvis were also negative apart from analysis. He was admitted to be worked up for chest pain. Seen and examined. He had no complaints and says chest pain was now about 2/ 10. His was at his bedside. He denied any fever or chills, any, any shortness of breath, any abdominal pain, any diarrhea vomiting. Review of systems otherwise negative. Vitals/I&O's: Vital Signs Temp Pulse Resp BP Pulse Ox 98.7 F 94 18 179/92 H 97 03/02/18 11:32 03/02/18 11:32 03/02/18 11:32 03/02/18 11:32 03/02/18 11:32 Oxygen Flow Rate (L/min) 1 Oxygen Delivery Method Room Air Weight: 203 lb 11.314 oz Body Mass Index (BMI) 30.0 Intake and Output for Last 24 Hours 02/28/18 03/01/18 03/02/18 23:59 23:59 23:59 Intake Total 595 / 595 652 / 652 Balance 595 / 595 652 / 652 General: Alert, Oriented x3, Cooperative, No apparent distress HEENT: Atraumatic, PERRLA, EOMI, Normocephalic Oral: Moist Mucosa Neck: Supple, No JVD, Negative Carotid Bruits Lungs: Clear to auscultation, Normal air movement Cardiovascular: Regular rate, Regular Rhythm, Normal S1, Normal S2, No murmurs Abdomen: Bowel Sounds Present, Soft, Non Tender, Non-Distended, No Hepato- splenomegaly Extremities: No clubbing, No cyanosis, No edema, Capillary Refill Less than 3 Seconds Skin: No rashes, No breakdown Musculoskeletal: No Tenderness to Palpation of Joints or Extremities Lymphatic: No Cervical, Supraclavicular, or Inguinal Adenopathy Neurological: Cranial nerves II-XII grossly intact Psych/Mental Status: Normal Affect, Appropriate, Alert and oriented to time, place, person, mood and affect Laboratory Results 03/01/18 19:40: Urine Color Yellow, Urine Clarity Clear, Urine pH 8.0, Ur Specific [place] 1.010, Urine Protein 15 H, Urine Glucose (UA) Normal, Urine Ketones Negative, Urine Occult Blood 25 H, Urine Nitrite Negative, Urine Bilirubin Negative, Urine Urobilinogen Normal, Ur Leukocyte Esterase Negative, Urine RBC 0-5 SEEN, Urine WBC 0 SEEN, Ur Squamous Epith Cells 0-5 SEEN, Urine Bacteria 0 SEEN, Urine Mucus 0 SEEN 03/01/18 21:34: Troponin I < 0.015 03/01/18 21:34: Lactic Acid 1.8 03/01/18 23:20: Troponin I < 0.015 03/02/18 05:35: WBC 15.0 H, RBC 4.52 L, Hgb 13.6, Hct 40.9, MCV 90.5, MCH 30.1, MCHC 33.3, RDW 13.8, RDW Differential 45.4 H, Plt Count 218, MPV 10.4, Immature Gran % (Auto) 0.300, Neut % (Auto) 78.1 H, Lymph % (Auto) 10.9 L, [place] % (Auto) 10.4 H, Eos % (Auto) 0.2, Baso % (Auto) 0.1, Absolute Neuts (auto) 11.7 H, Absolute Lymphs (auto) 1.63, Total Counted Not Reportable, Differential Comment SCANNED, Diff Path Review December03/02/18 05:35: Sodium 141, Potassium 3.9, Chloride 106, Carbon Dioxide 29.0, Anion Gap 6, BUN 12, Creatinine 1.14, Estim Creat Clear Calc 73.22, Est GFR ( MDRD) Af Amer 86, Est GFR (MDRD) Non-Af 71, BUN/Creatinine Ratio 10.5, Glucose 115 H, Calcium 8.3 L, Total Bilirubin 0.70, AST 25, ALT 48, Alkaline Phosphatase 56, Total Protein 6.4, Albumin 3.2, Globulin 3.2, Albumin/Globulin Ratio 1.0, Lipase 95 03/02/18 05:35: PT 14.3, INR 1.1, APTT 26.5 Current Medications Acetaminophen (Tylenol) 650 mg PO Q6H PRN PRN PRN Reason: Fever, headache, pain Last Admin: 03/02/18 06:23 Dose: 650 mg Al Hydroxide/Mg Hydroxide (Mylanta Ii) 15 ml PO Q6H PRN PRN PRN Reason: HEARTBURN OR INDIGESTION Last Admin: 03/01/18 22:53 Dose: 15 ml Aspirin (Ecotrin) 81 mg PO DAILY@0800 [facility] Last Admin: 03/02/18 06:23 Dose: 81 mg Atorvastatin Calcium (Lipitor) 20 mg PO QHS [facility] Last Admin: 03/01/18 21:29 Dose: 20 mg Enoxaparin Sodium (Lovenox) 40 mg SC DAILY [facility] Hydralazine HCl (Apresoline Iv) 10 mg IV Q8H PRN PRN PRN Reason: for SBOP>160 Sodium Chloride () 1,000 mls @ 100 mls/hr IV .Q10H [facility] Last Admin: 03/02/18 06:23 Dose: 100 mls/hr Famotidine 20 mg/ Sodium (Chloride) 10 mls @ 300 mls/hr IV Q12 [facility] Last Admin: 03/02/18 08:53 Dose: 300 mls/hr Losartan Potassium (Cozaar) 50 mg PO DAILY [facility] Last Admin: 03/02/18 06:24 Dose: 50 mg Magnesium Hydroxide (Milk Of Magnesia) 30 ml PO DAILY PRN PRN Reason: Constipation Morphine Sulfate () 1 - 2 mg IV Q4H PRN PRN PRN Reason: SEVERE PAIN () Last Admin: 03/02/18 11:34 Dose: 2 mg Ondansetron HCl (Zofran) 4 mg IV Q6H PRN PRN PRN Reason: NAUSEA/VOMITING Risperidone (Risperdal) 0.25 mg PO BID [facility] Last Admin: 03/01/18 22:58 Dose: 0.25 mg Sodium Chloride () 5 - 30 ml IV UD PRN PRN Reason: SALINE FLUSH Last Admin: 03/02/18 11:34 Dose: 10 ml Venlafaxine HCl (Effexor Xr) 150 mg PO DAILY [facility] Venlafaxine HCl (Effexor Xr) 75 mg PO DAILY [facility] Medical Necessity - Tobacco Use Smoking Status: Former smoker Assessment/Plan All Active Problems Chest pain (Acute) 7-year-old male admitted with a complaint of chest pain. He is being evaluated for chest pain. 1. Atypical Chest pain * chest pain now resolving. Hasnt had chest pain like this before * vitals: stable * EKG showed no acute ST changes, troponins were negative. * CTA negaitve for any PE or DVT. * stress test done today is also negative. * on aspirin and SL nitroglycerin prn * also on IV pepcid * 2. Hypertension * poorly controlled. BP is 179/102 at time of review * on losartan 50 mg daily; monitor and adjust as needed. * IV hydralazine as needed * 3. Hyperlipidemia: on statin. 4. Anxiety/depression: on effexor and risperidone 5. Leucocytosis: * likely reactive. Wbc was 15.8 on admission; no focus of infection. wbc is 15 this morning. Lactic acid was initially 2.3 but trended down to 1.8. Will monitor * 6. DVT prophylaxis: Subcu Lovenox This note was generated with [employer] software. It may contain incorrect words, spelling, and punctuation that were not noted in checking the note before signing. Code Visit OBSV E&M: 69418 Subsequent observation care L3
--- NOTE | 2018-03-02 13:22 | US_ITS ---
STUDY: ABDOMINAL ULTRASOUND - RIGHT UPPER QUADRANT REASON FOR VISIT: Male, 57 years old. Right upper quadrant pain. TECHNIQUE: Ultrasound evaluation of the right upper quadrant was performed with real-time and static alicia-scale imaging. TECHNICAL QUALITY: Adequate. COMPARISON: CT dated 03/01/2018 FINDINGS: Liver: The liver measures 16.0 cm. There is increased echogenicity consistent with fatty infiltration. The bile ducts are within normal limits. There is hepatic color flow. The direction of portal flow is hepatopetal. There is no demonstrated mass lesion. Gallbladder: Normal distended gallbladder. The gallbladder wall measures 7 mm. There is a negative sonographic Valle's sign. There is no pericholecystic fluid. There is sludge noted in the gallbladder. There are no gallstones. Common Bile Duct (C.B.D.): The common bile duct measures 5 mm. Pancreas: Normal size of the head, body and tail of the pancreas. There is normal echogenicity of the pancreas. There is no demonstrated pancreatic mass or cyst. Right Kidney: Normal size of the right kidney. The right kidney measures 11.0 cm. Normal renal cortex. There are cysts noted in the right kidney with the largest measuring 3.4 x 3.2 cm. There is no right hydronephrosis. US/Gallbladder IMPRESSION: Gallbladder sludge with gallbladder wall thickening. No pericholecystic fluid or gallstones. The director on air reports a positive sonographic Valle's sign. These findings are equivocal for acute cholecystitis and correlation with patient's clinical symptomatology is recommended. If indicated, a nuclear medicine hepatobiliary study can be performed. Fatty liver. Right renal cysts. Electronically Signed: Elijah De Guzman, at 19:01 EDT Tel , Service support ,
[2018-03-02] MEDS: RisperiDONE 0.25 MG Tablet PO ×2 (13:46→21:05)
[2018-03-02] MEDS: Enoxaparin 40 MG/0.4 ML Syringe SC (13:46)
[2018-03-02] MEDS: Venlafaxine XR 75 MG Capsule PO (13:46)
[2018-03-02] MEDS: Venlafaxine XR 150 MG Capsule PO (13:46)
[2018-03-02 15:51] LABS: Pathologist Review Reviewed
[2018-03-02] MEDS: Atorvastatin Calcium 20 MG Tablet PO (21:05)
[2018-03-03] VITALS (26 sets, daily range): BP systolic 82–155; BP diastolic 59–97; PULSE 92–135; RESP 16–22; TEMP 36.8–38.1; O2SAT 91–97
[2018-03-03] MEDS: 0.9% Normal Saline 1,000 ML 100 ML IV ×2 (02:57→18:47)
[2018-03-03] MEDS: Acetaminophen 325 MG Tablet 650 MG PO ×3 (05:56→22:51)
[2018-03-03 08:20] LABS: Absolute Lymphocyte Count 0.91 X10^3/ul (0.83-4.51); Absolute Neutrophil Count 8.6 X10^3/uL (2.0-7.7); Basophil# 0.02 X10^3/uL; Basophil% 0.2 % (0-1); Eosinophil# 0.05 X10^3/uL; Eosinophils% 0.5 % (0-5); Hematocrit 40.7 % (40-54); Hemoglobin 13.4 g/dl (13.0-16.5); Lymphocyte # 0.91 X10^3/ul (4.0); Lymphocyte % 8.4 % (19-41); Mean Corp Hgb Conc 32.9 g/gl (32-36); Mean Corpuscular Hgb 29.9 pg (27.0-32.0); Mean Corpuscular Volume 90.8 fL (80-94); Mean Platelet Vol. 10.5 fl (6.2-12.0); Monocyte# 1.22 X10^3/uL; Monocyte% 11.3 % (0-10); Neutrophil # 8.58 X10^3/uL (2.7-7.7); Neutrophil % 79.4 % (47-70); Platelet Count 186 K/mm3 (150-450); RBC Distribution Width CV 13.9 % (11.6-14.6); RBC Distribution Width SD 45.8 fl (35.1-43.9); Red Blood Count 4.48 M/mm3 (4.6-6.2); White Blood Count 10.8 K/mm3 (4.4-11.0)
[2018-03-03 08:21] LABS: POSITIVE COUNT NO; POSITIVE DIFFERENTIAL NO; POSITIVE MORPHOLOGY NO
[2018-03-03 08:47] LABS: ALB/GLOB Ratio 0.8 RATIO (0.9-2.4); AST(SGOT) 220 U/L (15-37); Alanine Aminotransfer ALT/SGPT 257 U/L (16-61); Albumin, Serum 2.8 g/dL (3.2-5.0); Alkaline Phosphatase 89 U/L (45-117); Anion Gap 6 (5-15); BUN 10 mg/dL (7-18); BUN/Creat Ratio 9.9 RATIO (10-20); Calcium,Total 8.1 mg/dL (8.5-10.1); Chloride 109 mmol/L (98-107); Creatinine, Serum 1.01 mg/dL (0.70-1.30); EST Glomerular Filtration Rate 81 mL/min (>60); Est Glom Filt Rate - Afr Amer 98 mL/min (>60); Estimated Creatinine Clearance 82.64 ml/min; Globulin 3.6 g/dL (2.2-4.2); Glucose 118 mg/dL (74-106); Potassium 4.1 mmol/L (3.5-5.1); Protein, Total 6.4 g/dL (6.4-8.2); Sodium Level 141 mmol/L (136-145)
[2018-03-03] MEDS: RisperiDONE 0.25 MG Tablet PO ×2 (08:52→20:52)
[2018-03-03] MEDS: Venlafaxine XR 150 MG Capsule PO (08:53)
[2018-03-03] MEDS: Losartan Potassium 50 MG Tablet PO (08:53)
[2018-03-03] MEDS: Venlafaxine XR 75 MG Capsule PO (08:53)
[2018-03-03] MEDS: Aspirin E.C. 81 MG Tablet PO (08:57)
[2018-03-03] MEDS: Ceftriaxone 1 GM/50 ML BAG IV (08:59)
[2018-03-03] MEDS: 0.9% NaCl Peripheral Flush Adult/Peds IV ×2 (10:28→19:53)
[2018-03-03] MEDS: Morphine 2 MG/ML Syringe IV ×2 (10:28→19:53)
--- NOTE | 2018-03-03 12:42 | PCM.PN.HOSP ---
Patient Problems: Active and Suspected Problems Chest pain (Acute) Subjective: Patient seen and examiend. He says he still has the right sided pain, but it is much better. He denies any fever, chills, cough, chest pain, abdominal pain, diarrhea or vomiting. Review of systems is otherwise negative. Vitals/I&O's: Vital Signs Temp Pulse Resp BP Pulse Ox 98.5 F 100 18 135/85 H 95 03/03/18 08:49 03/03/18 11:23 03/03/18 08:49 03/03/18 08:49 03/03/18 08:49 Oxygen Flow Rate (L/min) 1 Oxygen Delivery Method Room Air Weight: 203 lb 11.314 oz Body Mass Index (BMI) 30.0 Intake and Output for Last 24 Hours 03/01/18 03/02/18 03/03/18 23:59 23:59 23:59 Intake Total 595 / 595 2487 / 2487 1344 / 1344 Balance 595 / 595 2487 / 2487 1344 / 1344 General: Alert, Oriented x3, Cooperative, No apparent distress HEENT: Atraumatic, PERRLA, EOMI, Normocephalic Oral: Moist Mucosa Neck: Supple, No JVD, Negative Carotid Bruits, No Nodes, No Nuchal Rigidity Lungs: Clear to auscultation, Normal air movement, No rhonchi, No wheeze, No rales Cardiovascular: Regular rate, Regular Rhythm, Normal S1, Normal S2, No murmurs Abdomen: Bowel Sounds Present, Soft, - - RUQ abdominal tenderness, with positve Valle's sign. No rebound tenderness Extremities: No clubbing, No cyanosis, No edema, Capillary Refill Less than 3 Seconds Skin: No rashes, No breakdown Musculoskeletal: No Tenderness to Palpation of Joints or Extremities Lymphatic: No Cervical, Supraclavicular, or Inguinal Adenopathy Neurological: Cranial nerves II-XII grossly intact Psych/Mental Status: Normal Affect, Appropriate, Alert and oriented to time, place, person, mood and affect Laboratory Results 03/02/18 05:35: Diff Path Review Reviewed 03/03/18 07:55: WBC 10.8, RBC 4.48 L, Hgb 13.4, Hct 40.7, MCV 90.8, MCH 29.9, MCHC 32.9, RDW 13.9, RDW Differential 45.8 H, Plt Count 186, MPV 10.5, Immature Gran % (Auto) 0.200, Neut % (Auto) 79.4 H, Lymph % (Auto) 8.4 L, Page % (Auto) 11.3 H, Eos % (Auto) 0.5, Baso % (Auto) 0.2, Absolute Neuts (auto) 8.6 H, Absolute Lymphs (auto) 0.91, Total Counted Not Reportable 03/03/18 07:55: Sodium 141, Potassium 4.1, Chloride 109 H, Carbon Dioxide 26.0, Anion Gap 6, BUN 10, Creatinine 1.01, Estim Creat Clear Calc 82.64, Est GFR (MDRD) Af Amer 98, Est GFR (MDRD) Non-Af 81, BUN/Creatinine Ratio 9.9 L, Glucose 118 H, Calcium 8.1 L, Total Bilirubin 2.30 H, AST 220 H, ALT 257 H, Alkaline Phosphatase 89, Total Protein 6.4, Albumin 2.8 L, Globulin 3.6, Albumin/Globulin Ratio 0.8 L Diagnostic Data Chest X-Ray 03/01/18 16:30 IMPRESSION: No acute cardiopulmonary disease however, possible left hilar mass. Recommend CT chest to further evaluate Electronically Signed: Luis Velazquez DO at 17:13 EDT Tel , Service support , Abdomen/Pelvis CT 03/01/18 16:40 IMPRESSION: Grossly unremarkable gallbladder on CT. Mild fatty steatosis of the liver. Unremarkable appendix. Nonenhancing renal cysts. Electronically Signed: Luis Velazquez DO at 18:47 EDT Tel , Service support , Chest CTA 03/01/18 17:35 IMPRESSION: Normal CTA chest examination, without a demonstrated pulmonary embolism or arterial dissection. Electronically Signed: Luis Velazquez DO at 18:48 EDT Tel , Service support , Gallbladder Ultrasound 03/02/18 13:22 IMPRESSION: Gallbladder sludge with gallbladder wall thickening. No pericholecystic fluid or gallstones. The house principal reports a positive sonographic Valle's sign. These findings are equivocal for acute cholecystitis and correlation with patient's clinical symptomatology is recommended. If indicated, a nuclear medicine hepatobiliary study can be performed. Fatty liver. Right renal cysts. Electronically Signed: Elijah De Guzman, at 19:01 EDT Tel , Service support , Current Medications Acetaminophen (Tylenol) 650 mg PO Q6H PRN PRN PRN Reason: Fever, headache, pain Last Admin: 03/03/18 11:33 Dose: 650 mg Al Hydroxide/Mg Hydroxide (Mylanta Ii) 15 ml PO Q6H PRN PRN PRN Reason: HEARTBURN OR INDIGESTION Last Admin: 03/01/18 22:53 Dose: 15 ml Aspirin (Ecotrin) 81 mg PO DAILY@0800 [facility] Last Admin: 03/03/18 08:57 Dose: 81 mg Atorvastatin Calcium (Lipitor) 20 mg PO QHS [facility] Last Admin: 03/02/18 21:05 Dose: 20 mg Enoxaparin Sodium (Lovenox) 40 mg SC DAILY [facility] Last Admin: 03/03/18 08:53 Dose: Not Given Hydralazine HCl (Apresoline Iv) 10 mg IV Q8H PRN PRN PRN Reason: for SBOP>160 Sodium Chloride () 1,000 mls @ 100 mls/hr IV .Q10H [facility] Last Admin: 03/03/18 02:57 Dose: 100 mls/hr Famotidine 20 mg/ Sodium (Chloride) 10 mls @ 300 mls/hr IV Q12 [facility] Last Admin: 03/03/18 08:59 Dose: 300 mls/hr Ceftriaxone Sodium (Rocephin) 1 gm in 50 mls @ 100 mls/hr IV Q12 [facility] Last Admin: 03/03/18 08:59 Dose: 100 mls/hr Losartan Potassium (Cozaar) 50 mg PO DAILY [facility] Last Admin: 03/03/18 08:53 Dose: 50 mg Magnesium Hydroxide (Milk Of Magnesia) 30 ml PO DAILY PRN PRN Reason: Constipation Morphine Sulfate () 1 - 2 mg IV Q4H PRN PRN PRN Reason: SEVERE PAIN (6-10/10) Last Admin: 03/03/18 10:28 Dose: 2 mg Ondansetron HCl (Zofran) 4 mg IV Q6H PRN PRN PRN Reason: NAUSEA/VOMITING Risperidone (Risperdal) 0.25 mg PO BID [facility] Last Admin: 03/03/18 08:52 Dose: 0.25 mg Sodium Chloride () 5 - 30 ml IV UD PRN PRN Reason: SALINE FLUSH Last Admin: 03/03/18 10:28 Dose: 10 ml Venlafaxine HCl (Effexor Xr) 150 mg PO DAILY [facility] Last Admin: 03/03/18 08:53 Dose: 150 mg Venlafaxine HCl (Effexor Xr) 75 mg PO DAILY [facility] Last Admin: 03/03/18 08:53 Dose: 75 mg Medical Necessity - Tobacco Use Smoking Status: Former smoker Assessment/Plan All Active Problems Chest pain (Acute) 57-year-old male admitted with a complaint of chest pain. He is being evaluated for chest pain and ACS was ruled out. 1. Acute cholecystitis admitted with atypical right sided chest pain. ACS ruled out with negative troponins and negative EKG. stress test was also negative. CTPE was negative for DVT or PE had persistent RUQ pain wiht tenderness. USG liver/gallbladder: liver 16cm in size. Increased echogenicity consistent with fatty ingiltration. Bile ducts WNL. Normal distended gallbladder with gallbladder wall measuring 7mm/ No pericholecystic fluid; sludge noted in gallbladder. No gallbladder stones. CBD 5mm in size. cysts noted in right kidney. Findings equivocal for acute cholecystitis. will get general surgery consult. will start IV ceftriazone, with clinical sign of positive Valle's sign. on aspirin and SL nitroglycerin; on IV pepcid 2. Hypertension fairly controlled. ON losartan. Will continue. 3. ANDREWS USG liver showed liver being 16cm in size, with fatty infiltration. liver function tests: Total ingrid-2.30, AST-220, ALT-257 this is likely due to fatty liver and ANDREWS. on statin 4. Hyperlipidemia: on statin 5. Anxiety/depression: on effexor and risperidone 6. DVT prophylaxis: Subcu Lovenox 7. GI prophylaxis: on Pepcid This note was generated with [employer] dictation software. It may contain incorrect words, spelling, and punctuation that were not noted in checking the note before signing. Code Visit OBSV E&M: 35724 Subsequent observation care L3
--- NOTE | 2018-03-03 12:55 | PN_ITS ---
Patient Problems: Active and Suspected Problems Chest pain (Acute) Subjective: Patient seen and examiend. He says he still has the right sided pain, but it is much better. He denies any fever, chills, cough, chest pain, abdominal pain, diarrhea or vomiting. Review of systems is otherwise negative. Vitals/I&O's: Vital Signs Temp Pulse Resp BP Pulse Ox 98.5 F 100 18 135/85 H 95 03/03/18 08:49 03/03/18 11:23 03/03/18 08:49 03/03/18 08:49 03/03/18 08:49 Oxygen Flow Rate (L/min) 1 Oxygen Delivery Method Room Air Weight: 203 lb 11.314 oz Body Mass Index (BMI) 30.0 Intake and Output for Last 24 Hours 03/01/18 03/02/18 03/03/18 23:59 23:59 23:59 Intake Total 595 / 595 2487 / 2487 1344 / 1344 Balance 595 / 595 2487 / 2487 1344 / 1344 General: Alert, Oriented x3, Cooperative, No apparent distress HEENT: Atraumatic, PERRLA, EOMI, Normocephalic Oral: Moist Mucosa Neck: Supple, No JVD, Negative Carotid Bruits, No Nodes, No Nuchal Rigidity Lungs: Clear to auscultation, Normal air movement, No rhonchi, No wheeze, No rales Cardiovascular: Regular rate, Regular Rhythm, Normal S1, Normal S2, No murmurs Abdomen: Bowel Sounds Present, Soft, - - RUQ abdominal tenderness, with positve Valle's sign. No rebound tenderness Extremities: No clubbing, No cyanosis, No edema, Capillary Refill Less than 3 Seconds Skin: No rashes, No breakdown Musculoskeletal: No Tenderness to Palpation of Joints or Extremities Lymphatic: No Cervical, Supraclavicular, or Inguinal Adenopathy Neurological: Cranial nerves II-XII grossly intact Psych/Mental Status: Normal Affect, Appropriate, Alert and oriented to time, place, person, mood and affect Laboratory Results 03/02/18 05:35: Diff Path Review Reviewed 03/03/18 07:55: WBC 10.8, RBC 4.48 L, Hgb 13.4, Hct 40.7, MCV 90.8, MCH 29.9, MCHC 32.9, RDW 13.9, RDW Differential 45.8 H, Plt Count 186, MPV 10.5, Immature Gran % (Auto) 0.200, Neut % (Auto) 79.4 H, Lymph % (Auto) 8.4 L, Rains % (Auto) 11.3 H, Eos % (Auto) 0.5, Baso % (Auto) 0.2, Absolute Neuts (auto) 8.6 H, Absolute Lymphs (auto) 0.91, Total Counted Not Reportable 03/03/18 07:55: Sodium 141, Potassium 4.1, Chloride 109 H, Carbon Dioxide 26.0, Anion Gap 6, BUN 10, Creatinine 1.01, Estim Creat Clear Calc 82.64, Est GFR ( MDRD) Af Amer 98, Est GFR (MDRD) Non-Af 81, BUN/Creatinine Ratio 9.9 L, Glucose 118 H, Calcium 8.1 L, Total Bilirubin 2.30 H, AST 220 H, ALT 257 H, Alkaline Phosphatase 89, Total Protein 6.4, Albumin 2.8 L, Globulin 3.6, Albumin/ Globulin Ratio 0.8 L Diagnostic Data Chest X-Ray 03/01/18 16:30 IMPRESSION: No acute cardiopulmonary disease however, possible left hilar mass. Recommend CT chest to further evaluate Electronically Signed: Luis Velazquez DO at 17:13 EDT Tel , Service support , Abdomen/Pelvis CT 03/01/18 16:40 IMPRESSION: Grossly unremarkable gallbladder on CT. Mild fatty steatosis of the liver. Unremarkable appendix. Nonenhancing renal cysts. Electronically Signed: Luis Velazquez DO at 18:47 EDT Tel , Service support , Chest CTA 03/01/18 17:35 IMPRESSION: Normal CTA chest examination, without a demonstrated pulmonary embolism or arterial dissection. Electronically Signed: Luis Velazquez DO at 18:48 EDT Tel , Service support , Gallbladder Ultrasound 03/02/18 13:22 IMPRESSION: Gallbladder sludge with gallbladder wall thickening. No pericholecystic fluid or gallstones. The revenue analyst reports a positive sonographic Valle's sign. These findings are equivocal for acute cholecystitis and correlation with patient's clinical symptomatology is recommended. If indicated, a nuclear medicine hepatobiliary study can be performed. Fatty liver. Right renal cysts. Electronically Signed: Elijah DeG uzman, at 19:01 EDT Tel , Service support , Current Medications Acetaminophen (Tylenol) 650 mg PO Q6H PRN PRN PRN Reason: Fever, headache, pain Last Admin: 03/03/18 11:33 Dose: 650 mg Al Hydroxide/Mg Hydroxide (Mylanta Ii) 15 ml PO Q6H PRN PRN PRN Reason: HEARTBURN OR INDIGESTION Last Admin: 03/01/18 22:53 Dose: 15 ml Aspirin (Ecotrin) 81 mg PO DAILY@0800 [facility] Last Admin: 03/03/18 08:57 Dose: 81 mg Atorvastatin Calcium (Lipitor) 20 mg PO QHS [facility] Last Admin: 03/02/18 21:05 Dose: 20 mg Enoxaparin Sodium (Lovenox) 40 mg SC DAILY [facility] Last Admin: 03/03/18 08:53 Dose: Not Given Hydralazine HCl (Apresoline Iv) 10 mg IV Q8H PRN PRN PRN Reason: for SBOP>160 Sodium Chloride () 1,000 mls @ 100 mls/hr IV .Q10H [facility] Last Admin: 03/03/18 02:57 Dose: 100 mls/hr Famotidine 20 mg/ Sodium (Chloride) 10 mls @ 300 mls/hr IV Q12 [facility] Last Admin: 03/03/18 08:59 Dose: 300 mls/hr Ceftriaxone Sodium (Rocephin) 1 gm in 50 mls @ 100 mls/hr IV Q12 [facility] Last Admin: 03/03/18 08:59 Dose: 100 mls/hr Losartan Potassium (Cozaar) 50 mg PO DAILY [facility] Last Admin: 03/03/18 08:53 Dose: 50 mg Magnesium Hydroxide (Milk Of Magnesia) 30 ml PO DAILY PRN PRN Reason: Constipation Morphine Sulfate () 1 - 2 mg IV Q4H PRN PRN PRN Reason: SEVERE PAIN (6-10/10) Last Admin: 03/03/18 10:28 Dose: 2 mg Ondansetron HCl (Zofran) 4 mg IV Q6H PRN PRN PRN Reason: NAUSEA/VOMITING Risperidone (Risperdal) 0.25 mg PO BID [facility] Last Admin: 03/03/18 08:52 Dose: 0.25 mg Sodium Chloride () 5 - 30 ml IV UD PRN PRN Reason: SALINE FLUSH Last Admin: 03/03/18 10:28 Dose: 10 ml Venlafaxine HCl (Effexor Xr) 150 mg PO DAILY [facility] Last Admin: 03/03/18 08:53 Dose: 150 mg Venlafaxine HCl (Effexor Xr) 75 mg PO DAILY [facility] Last Admin: 03/03/18 08:53 Dose: 75 mg Medical Necessity - Tobacco Use Smoking Status: Former smoker Assessment/Plan All Active Problems Chest pain (Acute) 57-year-old male admitted with a complaint of chest pain. He is being evaluated for chest pain and ACS was ruled out. 1. Acute cholecystitis * admitted with atypical right sided chest pain. * ACS ruled out with negative troponins and negative EKG. * stress test was also negative. * CTPE was negative for DVT or PE * had persistent RUQ pain wiht tenderness. * USG liver/gallbladder: liver 16cm in size. Increased echogenicity consistent with fatty ingiltration. Bile ducts WNL. Normal distended gallbladder with gallbladder wall measuring 7mm/ No pericholecystic fluid; sludge noted in gallbladder. No gallbladder stones. CBD 5mm in size. cysts noted in right kidney. Findings equivocal for acute cholecystitis. * will get general surgery consult. * will start IV ceftriazone, with clinical sign of positive Valle's sign. * on aspirin and SL nitroglycerin; on IV pepcid * 2. Hypertension * fairly controlled. ON losartan. Will continue. * 3. ANDREWS * USG liver showed liver being 16cm in size, with fatty infiltration. * liver function tests: Total ingrid-2.30, AST-220, ALT-257 * this is likely due to fatty liver and ANDREWS. * on statin 4. Hyperlipidemia: on statin 5. Anxiety/depression: on effexor and risperidone 6. DVT prophylaxis: Subcu Lovenox 7. GI prophylaxis: on Pepcid This note was generated with [employer] dictation software. It may contain incorrect words, spelling, and punctuation that were not noted in checking the note before signing. Code Visit OBSV E&M: 68326 Subsequent observation care L3
--- NOTE | 2018-03-03 13:27 | RAD_ITS ---
STUDY: INTRAOPERATIVE CHOLANGIOGRAM. REASON FOR EXAM: Male, 57 years old. Laparoscopic cholecystectomy. FLUOROSCOPY TIME (if supplied): (18.1 seconds) minutes/seconds TECHNIQUE: An intraoperative cholangiogram was performed by the surgeon. Imaging was provided. COMPARISON: None. FINDINGS: The common bile duct is not dilated. No intraluminal filling defect is seen. There is free flow of contrast into the duodenum. RAD/Cholangiogram/ O R,Initial IMPRESSION: Unremarkable intraoperative cholangiogram. Electronically Signed: Edwar Handy MD at 15:42 EDT Tel [phone], Service support ,
--- NOTE | 2018-03-03 13:50 | PCM.CONS.GEN ---
Problem List (1) Acute cholecystitis Status: Acute Reason for Consult Date of Consultation: 03/03/18 Reason for Consultation: Right upper quadrant pain History of Present Illness: The patient is a 57 year old M who presented to the hospital 2 days ago with right abdominal pain. This was worked up for chest pain and had an extensive cardiac workup. The patient had an elevated white count at that time. He reports that he has been having 2 days of right upper quadrant pain and like any pain he has ever had before. He also has pain in the epigastric region. He was kept on a regular diet when he was first in the hospital he said he made the pain worse. He has not been having any fevers but he has been having chills. He has not had any nausea or vomiting. Past Medical History Past Medical History (Chronic Problems): Chronic Problems Depression (Chronic) Anxiety (Chronic) Hyperlipidemia (Chronic) Hypertension (Chronic) Allergies No Known Allergies Allergy (Verified 03/01/18 16:30) Home Medications: Ambulatory Orders Medication Instructions Recorded Atorvastatin Calcium [Lipitor] 20 mg PO DAILY 02/02/17 Losartan Potassium [Cozaar] 50 mg PO DAILY 02/02/17 Risperidone [Risperdal] 0.25 mg PO BID 02/02/17 Venlafaxine XR [Effexor Xr] 225 mg PO DAILY 02/02/17 Surgical History: herniorrhaphy, - - Rotator cuff surgery. Psychiatric History: Anxiety, Depression Smoking Status: Former smoker Alcohol: Occasional Drugs: None - *Family History Maternal History Items: No pertinent history Paternal History Items: No pertinent history Review of Systems Constitutional: Reports: Chills. Denies: Fever Eyes: Denies: Blurred vision HEENT: Denies: Difficulty Swallowing Cardiovascular: Denies: Chest Pain Respiratory: Denies: Cough Gastrointestinal: Reports: Abdominal Pain. Denies: Nausea, Vomiting Genitourinary: Denies: Incontinence Musculoskeletal: Denies: Arm Pain, Joint swelling Skin: Denies: Jaundice Neurological: Denies: Balance problems Psychiatric: Denies: Anxiety, Depression Hematologic/ Lymphatic: Denies: Anemia Patient Problems: Active and Suspected Problems Acute cholecystitis (Acute) Chest pain (Acute) - Physical Exam General: Alert, Oriented x3, Cooperative HEENT: Atraumatic, PERRLA, EOMI Oral: Moist Mucosa Neck: No JVD Lungs: Normal air movement Cardiovascular: Regular rate, Regular Rhythm Abdomen: Soft, Non-Distended, Tender - Tender in the right upper quadrant and epigastric region. Positive Valle sign Extremities: No clubbing Skin: No rashes Musculoskeletal: No Muscle Wasting Neurological: Cranial nerves II-XII grossly intact Psych/Mental Status: Normal Affect Vital Signs Temp Pulse Resp BP Pulse Ox 98.5 F 100 18 135/85 H 95 03/03/18 08:49 03/03/18 11:23 03/03/18 08:49 03/03/18 08:49 03/03/18 08:49 Oxygen Flow Rate (L/min) 1 Oxygen Delivery Method Room Air Weight: 203 lb 11.314 oz Body Mass Index (BMI) 30.0 Intake and Output for Last 24 Hours 03/01/18 03/02/18 03/03/18 23:59 23:59 23:59 Intake Total 595 / 595 2487 / 2487 1344 / 1344 Balance 595 / 595 2487 / 2487 1344 / 1344 Laboratory Tests Past 24 Hrs 03/02/18 03/03/18 03/03/18 05:35 07:55 07:55 WBC 10.8 RBC 4.48 L Hgb 13.4 Hct 40.7 MCV 90.8 MCH 29.9 MCHC 32.9 RDW 13.9 RDW Differential 45.8 H Plt Count 186 MPV 10.5 Immature Gran % (Auto) 0.200 Neut % (Auto) 79.4 H Lymph % (Auto) 8.4 L [place] % (Auto) 11.3 H Eos % (Auto) 0.5 Baso % (Auto) 0.2 Absolute Neuts (auto) 8.6 H Absolute Lymphs (auto) 0.91 Total Counted Not Reportable Diff Path Review Reviewed Sodium 141 Potassium 4.1 Chloride 109 H Carbon Dioxide 26.0 Anion Gap 6 BUN 10 Creatinine 1.01 Estim Creat Clear Calc 82.64 Est GFR (MDRD) Af Amer 98 Est GFR (MDRD) Non-Af 81 BUN/Creatinine Ratio 9.9 L Glucose 118 H Calcium 8.1 L Total Bilirubin 2.30 H AST 220 H ALT 257 H Alkaline Phosphatase 89 Total Protein 6.4 Albumin 2.8 L Globulin 3.6 Albumin/Globulin Ratio 0.8 L Clinical Impression(s) from Imaging Studies Chest X-Ray 03/01/18 16:30 IMPRESSION: No acute cardiopulmonary disease however, possible left hilar mass. Recommend CT chest to further evaluate Electronically Signed: Luis Velazquez DO at 17:13 EDT Tel , Service support , Abdomen/Pelvis CT 03/01/18 16:40 IMPRESSION: Grossly unremarkable gallbladder on CT. Mild fatty steatosis of the liver. Unremarkable appendix. Nonenhancing renal cysts. Electronically Signed: Luis Velazquez DO at 18:47 EDT Tel , Service support , Chest CTA 03/01/18 17:35 IMPRESSION: Normal CTA chest examination, without a demonstrated pulmonary embolism or arterial dissection. Electronically Signed: Luis Velazquez DO at 18:48 EDT Tel , Service support , Gallbladder Ultrasound 03/02/18 13:22 IMPRESSION: Gallbladder sludge with gallbladder wall thickening. No pericholecystic fluid or gallstones. The gym instructor reports a positive sonographic Valle's sign. These findings are equivocal for acute cholecystitis and correlation with patient's clinical symptomatology is recommended. If indicated, a nuclear medicine hepatobiliary study can be performed. Fatty liver. Right renal cysts. Electronically Signed: Elijah De Guzman, at 19:01 EDT Tel , Service support , Assessment/Plan All Active Problems Acute cholecystitis (Acute) Chest pain (Acute) 57-year-old male with acute cholecystitis 1. The patient had an unremarkable CT on admission but the following day he had an ultrasound of the right upper quadrant which showed a thickened gallbladder wall with sludge and a positive Valle sign. His white count has decreased but he has been on ceftriaxone. The patient still having right upper quadrant pain and he said eating made it worse. He also has a positive Valle sign. I believe the patient does have acute cholecystitis. 2. I discussed the procedure in detail with the patient. I discussed the risks, benefits, and alternatives of the procedure. I discussed the risks including but not limited to bleeding, infection, injury to surrounding organs such as the liver, bile duct, bowels. I did discuss the possibility of having to convert to an open procedure as well as the possibility that if any injuries occurred this may necessitate further surgery at a tertiary care center. The patient is willing to proceed. 3. The patient is currently on scheduled antibiotics. Magdi Mackay MD Pager: [facility] [address] [place] [address] [address] [place] [address] Office:
--- NOTE | 2018-03-03 13:54 | CON.PCM_ITS ---
Problem List (1) Acute cholecystitis Status: Acute Reason for Consult Date of Consultation: 03/03/18 Reason for Consultation: Right upper quadrant pain History of Present Illness: The patient is a 57 year old M who presented to the hospital 2 days ago with right abdominal pain. This was worked up for chest pain and had an extensive cardiac workup. The patient had an elevated white count at that time. He reports that he has been having 2 days of right upper quadrant pain and like any pain he has ever had before. He also has pain in the epigastric region. He was kept on a regular diet when he was first in the hospital he said he made the pain worse. He has not been having any fevers but he has been having chills. He has not had any nausea or vomiting. Past Medical History Past Medical History (Chronic Problems): Chronic Problems Depression (Chronic) Anxiety (Chronic) Hyperlipidemia (Chronic) Hypertension (Chronic) Allergies No Known Allergies Allergy (Verified 03/01/18 16:30) Home Medications: Ambulatory Orders Medication Instructions Recorded Atorvastatin Calcium [Lipitor] 20 mg PO DAILY 02/02/17 Losartan Potassium [Cozaar] 50 mg PO DAILY 02/02/17 Risperidone [Risperdal] 0.25 mg PO BID 02/02/17 Venlafaxine XR [Effexor Xr] 225 mg PO DAILY 02/02/17 Surgical History: herniorrhaphy, - - Rotator cuff surgery. Psychiatric History: Anxiety, Depression Smoking Status: Former smoker Alcohol: Occasional Drugs: None - *Family History Maternal History Items: No pertinent history Paternal History Items: No pertinent history Review of Systems Constitutional: Reports: Chills. Denies: Fever Eyes: Denies: Blurred vision HEENT: Denies: Difficulty Swallowing Cardiovascular: Denies: Chest Pain Respiratory: Denies: Cough Gastrointestinal: Reports: Abdominal Pain. Denies: Nausea, Vomiting Genitourinary: Denies: Incontinence Musculoskeletal: Denies: Arm Pain, Joint swelling Skin: Denies: Jaundice Neurological: Denies: Balance problems Psychiatric: Denies: Anxiety, Depression Hematologic/ Lymphatic: Denies: Anemia Patient Problems: Active and Suspected Problems Acute cholecystitis (Acute) Chest pain (Acute) - Physical Exam General: Alert, Oriented x3, Cooperative HEENT: Atraumatic, PERRLA, EOMI Oral: Moist Mucosa Neck: No JVD Lungs: Normal air movement Cardiovascular: Regular rate, Regular Rhythm Abdomen: Soft, Non-Distended, Tender - Tender in the right upper quadrant and epigastric region. Positive Valle sign Extremities: No clubbing Skin: No rashes Musculoskeletal: No Muscle Wasting Neurological: Cranial nerves II-XII grossly intact Psych/Mental Status: Normal Affect Vital Signs Temp Pulse Resp BP Pulse Ox 98.5 F 100 18 135/85 H 95 03/03/18 08:49 03/03/18 11:23 03/03/18 08:49 03/03/18 08:49 03/03/18 08:49 Oxygen Flow Rate (L/min) 1 Oxygen Delivery Method Room Air Weight: 203 lb 11.314 oz Body Mass Index (BMI) 30.0 Intake and Output for Last 24 Hours 03/01/18 03/02/18 03/03/18 23:59 23:59 23:59 Intake Total 595 / 595 2487 / 2487 1344 / 1344 Balance 595 / 595 2487 / 2487 1344 / 1344 Laboratory Tests Past 24 Hrs 03/02/18 03/03/18 03/03/18 05:35 07:55 07:55 WBC 10.8 RBC 4.48 L Hgb 13.4 Hct 40.7 MCV 90.8 MCH 29.9 MCHC 32.9 RDW 13.9 RDW Differential 45.8 H Plt Count 186 MPV 10.5 Immature Gran % (Auto) 0.200 Neut % (Auto) 79.4 H Lymph % (Auto) 8.4 L [place] % (Auto) 11.3 H Eos % (Auto) 0.5 Baso % (Auto) 0.2 Absolute Neuts (auto) 8.6 H Absolute Lymphs (auto) 0.91 Total Counted Not Reportable Diff Path Review Reviewed Sodium 141 Potassium 4.1 Chloride 109 H Carbon Dioxide 26.0 Anion Gap 6 BUN 10 Creatinine 1.01 Estim Creat Clear Calc 82.64 Est GFR (MDRD) Af Amer 98 Est GFR (MDRD) Non-Af 81 BUN/Creatinine Ratio 9.9 L Glucose 118 H Calcium 8.1 L Total Bilirubin 2.30 H AST 220 H ALT 257 H Alkaline Phosphatase 89 Total Protein 6.4 Albumin 2.8 L Globulin 3.6 Albumin/Globulin Ratio 0.8 L Clinical Impression(s) from Imaging Studies Chest X-Ray 03/01/18 16:30 IMPRESSION: No acute cardiopulmonary disease however, possible left hilar mass. Recommend CT chest to further evaluate Electronically Signed: Luis Velazquez DO at 17:13 EDT Tel , Service support , Abdomen/Pelvis CT 03/01/18 16:40 IMPRESSION: Grossly unremarkable gallbladder on CT. Mild fatty steatosis of the liver. Unremarkable appendix. Nonenhancing renal cysts. Electronically Signed: Luis Velazquez DO at 18:47 EDT Tel , Service support , Chest CTA 03/01/18 17:35 IMPRESSION: Normal CTA chest examination, without a demonstrated pulmonary embolism or arterial dissection. Electronically Signed: Luis Velazquez DO at 18:48 EDT Tel , Service support , Gallbladder Ultrasound 03/02/18 13:22 IMPRESSION: Gallbladder sludge with gallbladder wall thickening. No pericholecystic fluid or gallstones. The donor services specialist reports a positive sonographic Valle's sign. These findings are equivocal for acute cholecystitis and correlation with patient's clinical symptomatology is recommended. If indicated, a nuclear medicine hepatobiliary study can be performed. Fatty liver. Right renal cysts. Electronically Signed: Elijah De Guzman, at 19:01 EDT Tel , Service support , Assessment/Plan All Active Problems Acute cholecystitis (Acute) Chest pain (Acute) 57-year-old male with acute cholecystitis 1. The patient had an unremarkable CT on admission but the following day he had an ultrasound of the right upper quadrant which showed a thickened gallbladder wall with sludge and a positive Valle sign. His white count has decreased but he has been on ceftriaxone. The patient still having right upper quadrant pain and he said eating made it worse. He also has a positive Valle sign. I believe the patient does have acute cholecystitis. 2. I discussed the procedure in detail with the patient. I discussed the risks , benefits, and alternatives of the procedure. I discussed the risks including but not limited to bleeding, infection, injury to surrounding organs such as the liver, bile duct, bowels. I did discuss the possibility of having to convert to an open procedure as well as the possibility that if any injuries occurred this may necessitate further surgery at a tertiary care center. The patient is willing to proceed. 3. The patient is currently on scheduled antibiotics. Magdi Mackay MD Pager: [facility] [address] [place] [address] [address] [place] [address] Office:
--- NOTE | 2018-03-03 14:05 | NURSING ---
Report called to Receiving RNJeanette, in [place]. Saritha DE LA CRUZ
[2018-03-03] MEDS: Bupivacaine Mpf 0.5% 30 ML VIAL (15:31)
--- NOTE | 2018-03-03 15:43 | PCM.OPRPT ---
Problem List (1) Acute cholecystitis Status: Acute Report of Operation Date of Procedure: 03/03/18 Pre-Operative Diagnosis: Acute cholecystitis Post-Operative Diagnosis: Acute cholecystitis Surgery/Procedure Performed:: Laparoscopic cholecystectomy with cholangiogram Specimen's removed: Gallbladder and contents Description of Procedure: After obtaining informed consent patient was brought back to the operating room. General anesthesia was induced. The abdomen was prepped and draped in usual sterile fashion. A small midline incision was made superior to the umbilicus and deepened to the level of fascia. The fascia was elevated and incised. Next the peritoneum was elevated and incised in the same fashion. Finger sweep was performed and the Ugalde trocar was placed into the abdomen. The balloon was inflated. The abdomen was inflated to 15 mmHg. Next a camera was introduced into the abdomen and the abdomen was inspected. Next under direct visualization three 5-mm ports were placed one subxiphoid and 2 subcostal. The gallbladder was inflamed and distended. The omental fat adhered to the gallbladder wall was peeled back and the gallbladder was drained with suction and purulent material was aspirated. Next the gallbladder was elevated and retracted toward the right shoulder. The peritoneum was stripped from the gallbladder. The infundibulum was located and retracted laterally. Next the triangle of Calot was dissected and the cystic duct and cystic artery were identified. Cholangiograms were performed. The Salazar catheter was used to clamp across the infundibulum and the needle was inserted into the gallbladder. Under fluoroscopy contrast was instilled into the gallbladder and the common duct, cystic duct as well as proximal hepatic ducts were identified. There was good filling of the duodenum. There were no filling defects noted in the common bile duct. The clamp was removed as well as the needle and the infundibulum was grasped once more. Three hemolock clips were placed across the cystic duct. The cystic duct was then divided leaving 2 clips on the stump. The cystic artery was clipped and divided in the same fashion. The hook cautery was then used to take the gallbladder off of the gallbladder bed. Hemostasis was obtained. Gallbladder fossa was irrigated and no active bleeding or bile leakage was noted. Next the camera switched to a 5 mm camera and introduced in the subxiphoid port. An Endopouch bag was placed through the umbilical port and the gallbladder was placed into it. The gallbladder was then removed through the umbilical incision. The camera was then reinserted through the umbilical port. The gallbladder fossa was inspected once more and noted to be hemostatic with no leaking bile. The abdomen was suctioned dry the 5 mm ports were removed under direct visualization. The umbilical port was then removed and the air was removed from the abdomen. Next using an 0 Vicryl suture the umbilical fascia was closed in a [id number] fashion. The umbilical port site was irrigated local anesthetic was administered to all the incisions. All the incisions were closed subcuticular 4-0 Monocryl sutures followed by Steri-Strips and dressings. The patient was awoken and taken to PACU in stable condition. - Admit VTE Documentation VTE Mechan Device Prophylaxis: SCD's
--- NOTE | 2018-03-03 16:34 | CASEMGMT ---
RN CM Assessment. DC Plan: home no needs identified. Jazmine [employer] WE[employer] ACM
[2018-03-03] MEDS: Piperacil/Tazobactam 3.375 GM/50 ML ML IV (19:06)
[2018-03-03] MEDS: Atorvastatin Calcium 20 MG Tablet PO (20:52)
[2018-03-04] VITALS (16 sets, daily range): BP systolic 133–177; BP diastolic 74–108; PULSE 89–140; RESP 18–20; TEMP 36.8–38.3; O2SAT 92–96
--- NOTE | 2018-03-04 | GALL_PTH ---
PATIENT: KATI MCCOY LOC: [facility] U#:[id number] AGE/SX: 57/M ROOM: [facility] RE03/02/[address]: Dr. Padmini Ahuja MD : [id number] BED: 1 DIS: 03/06/2018 SPEC #: [id number] RECD: 03/04/18 13:56 STATUS: VIC REQ #: [id number] LUZMA: 03/04/18 00:[address]: Magdi Mackay DEPT: SURGICAL PATHOLOGY RECD BY: Mehdi Mejias ENTERED: 03/04/18 13:56 SP TYPE: GALLBLADDE OTHR DR: MD Dr. Emerson Metz MD Dr. Katie Mae Brenner, DO Dr. Nana Yaa Koram, MD Tissues: Gallbladder, NOS Procedures: Surgery Specimen Level III Comments: @ Ordering doctor for SUIII edited from to @ mojgan AVELAR at 03/04/18 1450 @ Submitting doctor edited from to @ by VALENTINO at 03/04/18 1450 HEADER OPERATION: Laparoscopic cholecystectomy with intraoperative cholangiogram PRE-OP DIAGNOSIS: Acute cholecystitis TISSUE SUBMITTED: Gallbladder MICROSCOPIC DIAGNOSIS Gallbladder: Acute and chronic hemorrhagic and ulcerated cholecystitis. No stones are identified in the container or in the gallbladder. Reactive epithelial changes. ZOË:bruce 03/07/18 MICROSCOPIC DESCRIPTION Slides are reviewed. GROSS DESCRIPTION Received is one container labeled with the patient's name and designated gallbladder. The specimen consists of a gallbladder measuring 11 cm in length and 4 cm in diameter. The proximal portion appears to consist of cystic duct which measures up to 5 cm in length and up to 1.5 cm in diameter. The mucosa is congested. The external surface is pink-cosby, smooth and glistening for the most part. Focally it is granular, hemorrhagic and contains cautery artifact. The gallbladder contains a small amount of blood clots. The gallbladder wall measures up to 0.4 cm in thickness. No stones are identified in the container or in the gallbladder. Flush Tester sections from the gallbladder and the cystic duct are submitted in one cassette. / ZOË:bruce 03/04/18 TC:2 CPT: 10785
--- NOTE | 2018-03-04 03:15 | EKG12_ITS ---
Test Reason : TACHY Blood Pressure : / mmHG Vent. Rate : 111 BPM Atrial Rate : 111 BPM P-R Int : 184 ms QRS Dur : 082 ms QT Int : 314 ms P-R-T Axes : 049 035 012 degrees QTc Int : 427 ms Sinus tachycardia Otherwise normal ECG Confirmed by KRYSTAL CHAVIRA, LAURA ([id number]), editor index ISSAC VALENCIA ([id number]) on 03/08/2018 3:06:55 PM Referred By: ALEKSANDAR Confirmed By:LAURA RICE MD
[2018-03-04 03:51] LABS: Absolute Neutrophil Count 14.2 X10^3/uL (2.0-7.7); Basophil# 0.01 X10^3/uL; Basophil% 0.1 % (0-1); Differential Indicated SCAN CRITERIA MET; Eosinophil# 0.01 X10^3/uL; Eosinophils% 0.1 % (0-5); Hematocrit 36.4 % (40-54); Hemoglobin 12.2 g/dl (13.0-16.5); Lymphocyte % 2.6 % (19-41); Mean Corp Hgb Conc 33.5 g/gl (32-36); Mean Corpuscular Hgb 30.4 pg (27.0-32.0); Mean Corpuscular Volume 90.8 fL (80-94); Mean Platelet Vol. 10.7 fl (6.2-12.0); Monocyte# 0.79 X10^3/uL; Monocyte% 5.1 % (0-10); Neutrophil # 14.21 X10^3/uL (2.7-7.7); Neutrophil % 91.9 % (47-70); POSITIVE COUNT NO; POSITIVE DIFFERENTIAL YES; POSITIVE MORPHOLOGY NO; Platelet Count 192 K/mm3 (150-450); RBC Distribution Width CV 13.8 % (11.6-14.6); RBC Distribution Width SD 45.5 fl (35.1-43.9); Red Blood Count 4.01 M/mm3 (4.6-6.2); White Blood Count 15.5 K/mm3 (4.4-11.0)
[2018-03-04 04:10] LABS: Lactic Acid 1.2 mmol/L (0.4-2.0)
[2018-03-04 04:35] LABS: Differential Comment SCANNED
[2018-03-04] MEDS: 0.9% Normal Saline 1,000 ML 100 ML IV ×2 (04:58→15:26)
[2018-03-04] MEDS: Acetaminophen 325 MG Tablet 650 MG PO ×2 (04:58→19:03)
[2018-03-04] MEDS: Piperacil/Tazobactam 3.375 GM/50 ML ML IV ×3 (05:00→21:57)
[2018-03-04 08:02] LABS: Anion Gap 7 (5-15); BUN 13 mg/dL (7-18); BUN/Creat Ratio 10.7 RATIO (10-20); Calcium,Total 8.1 mg/dL (8.5-10.1); Chloride 110 mmol/L (98-107); Creatinine, Serum 1.22 mg/dL (0.70-1.30); EST Glomerular Filtration Rate 65 mL/min (>60); Est Glom Filt Rate - Afr Amer 79 mL/min (>60); Estimated Creatinine Clearance 68.41 ml/min; Glucose 134 mg/dL (74-106); Sodium Level 143 mmol/L (136-145)
--- NOTE | 2018-03-04 08:17 | PN.SURG_ITS ---
Patient Problems: Active and Suspected Problems Acute cholecystitis (Acute) Chest pain (Acute) Subjective: Patient seems to be doing well this morning. He did have some tachycardia overnight but he says his pain is improved. He is having no nausea or vomiting and tolerated clear liquids. He is passing gas. - Physical Exam General: Alert, Oriented x3, Cooperative Lungs: Normal air movement, No rales Cardiovascular: Regular rate, Regular Rhythm Abdomen: Soft, Non-Distended, Tender - Mildly tender. Incisions are clean dry and intact Vital Signs Temp Pulse Resp BP Pulse Ox 99.4 F H 99 18 153/98 H 93 03/04/18 05:00 03/04/18 07:11 03/04/18 05:00 03/04/18 05:00 03/04/18 06:57 Oxygen Flow Rate (L/min) 3 Oxygen Delivery Method Room Air Weight: 203 lb 11.314 oz Body Mass Index (BMI) 30.0 Intake and Output for Last 24 Hours 03/02/18 03/03/18 03/04/18 23:59 23:59 23:59 Intake Total 1835 / 2487 5030 / 5030 2702.5 / 2702.5 Output Total 1675 / 1675 Balance 1835 / 2487 5030 / 5030 1027.5 / 1027.5 Laboratory Tests Past 24 Hrs 03/03/18 03/03/18 03/04/18 07:55 07:55 03:32 WBC 10.8 RBC 4.48 L Hgb 13.4 Hct 40.7 MCV 90.8 MCH 29.9 MCHC 32.9 RDW 13.9 RDW Differential 45.8 H Plt Count 186 MPV 10.5 Immature Gran % (Auto) 0.200 Neut % (Auto) 79.4 H Lymph % (Auto) 8.4 L [place] % (Auto) 11.3 H Eos % (Auto) 0.5 Baso % (Auto) 0.2 Absolute Neuts (auto) 8.6 H Absolute Lymphs (auto) 0.91 Total Counted Not Reportable Differential Comment Sodium 141 Potassium 4.1 Chloride 109 H Carbon Dioxide 26.0 Anion Gap 6 BUN 10 Creatinine 1.01 Estim Creat Clear Calc 82.64 Est GFR (MDRD) Af Amer 98 Est GFR (MDRD) Non-Af 81 BUN/Creatinine Ratio 9.9 L Glucose 118 H Lactic Acid 1.2 Calcium 8.1 L Total Bilirubin 2.30 H AST 220 H ALT 257 H Alkaline Phosphatase 89 Total Protein 6.4 Albumin 2.8 L Globulin 3.6 Albumin/Globulin Ratio 0.8 L 03/04/18 03/04/18 03:32 03:32 WBC 15.5 H RBC 4.01 L Hgb 12.2 L Hct 36.4 L MCV 90.8 MCH 30.4 MCHC 33.5 RDW 13.8 RDW Differential 45.5 H Plt Count 192 MPV 10.7 Immature Gran % (Auto) 0.200 Neut % (Auto) 91.9 H Lymph % (Auto) 2.6 L [place] % (Auto) 5.1 Eos % (Auto) 0.1 Baso % (Auto) 0.1 Absolute Neuts (auto) 14.2 H Absolute Lymphs (auto) 0.40 L Total Counted Not Reportable Differential Comment SCANNED Sodium 143 Potassium 4.0 Chloride 110 H Carbon Dioxide 26.0 Anion Gap 7 BUN 13 Creatinine 1.22 Estim Creat Clear Calc 68.41 Est GFR (MDRD) Af Amer 79 Est GFR (MDRD) Non-Af 65 BUN/Creatinine Ratio 10.7 Glucose 134 H Lactic Acid Calcium 8.1 L Total Bilirubin AST ALT Alkaline Phosphatase Total Protein Albumin Globulin Albumin/Globulin Ratio Medical Necessity - Tobacco Use Smoking Status: Former smoker Assessment/Plan All Active Problems Acute cholecystitis (Acute) Chest pain (Acute) 57-year-old male status post laparoscopic cholecystectomy with acute cholecystitis 1. The patient was having a febrile reaction during surgery yesterday and his white count has increased. I would recommend continuing antibiotics. 2. I will advance patient to regular diet is he is tolerating clear liquids and passing flatus. 3. The patient had elevated LFTs yesterday but his cholangiogram did show flow of bile into the duodenum. He may have been starting to have cholangitis as he was having fever, right upper quadrant pain, jaundice. Magdi Mackay MD Pager: [facility] [address] [place] [address], [address] [place] [address] Office:
[2018-03-04] MEDS: 0.9% NaCl Peripheral Flush Adult/Peds IV ×2 (09:03→13:51)
[2018-03-04] MEDS: Venlafaxine XR 150 MG Capsule PO (09:10)
[2018-03-04] MEDS: Losartan Potassium 50 MG Tablet PO (09:10)
[2018-03-04] MEDS: Aspirin E.C. 81 MG Tablet PO (09:10)
[2018-03-04] MEDS: Morphine 2 MG/ML Syringe IV (09:10)
[2018-03-04] MEDS: Enoxaparin 40 MG/0.4 ML Syringe SC (09:11)
[2018-03-04] MEDS: RisperiDONE 0.25 MG Tablet PO ×2 (09:11→21:57)
[2018-03-04] MEDS: Venlafaxine XR 75 MG Capsule PO (09:11)
--- NOTE | 2018-03-04 11:55 | PCM.PN.HOSP ---
Patient Problems: Active and Suspected Problems Acute cholecystitis (Acute) Chest pain (Acute) Subjective: 57-year-old male with past medical history of depression, anxiety, hyperlipidemia and hypertension. Was admitted via the ED on 03/01/2018 with a complaint of chest pain which started around 4 AM on morning of admission. He woke him up from sleep and which was retrosternal, sharp, 9 out of 10, nonradiating and assisted with mild shortness of breath. He thought it was due to GI pathology and took Pepto-Bismol but did not help. Pain persisted throughout the day and so he decided to come to the ED. He denied any sweating, dizziness or lightheadedness. Troponin was negative, lactic acid was slightly elevated at 2.3. D-dimer was normal, EKG shows sinus tachycardia with no acute ST changes. Chest x-ray revealed questionable left hilar mass and CT revealed no evidence of PE, dissection, no evidence of lung mass or hilar mass. CT abdomen and pelvis were also negative apart from analysis. He was admitted to be worked up for chest pain. Stress test was negative. On examination, patient had this and a diagnosis of possible acute cholecystitis was made. Right upper quadrant ultrasound showed biliary sludge. Patient had been admitted with elevated white cell count. Was started on IV ceftriaxone and general surgery consulted. He had laparoscopic cholecystectomy on 03/03/2018. Patient seen and examined today he complains of pain at site of laparoscopic cholecystectomy. He is passing gas. He denies any fever or chills, nausea vomiting or diarrhea. Review of systems otherwise negative. by his bedside at time of review. Vitals/I&O's: Vital Signs Temp Pulse Resp BP Pulse Ox 98.2 F 104 H 20 H 177/95 H 95 03/04/18 08:58 03/04/18 08:58 03/04/18 08:58 03/04/18 08:58 03/04/18 08:58 Oxygen Flow Rate (L/min) 2 Oxygen Delivery Method Nasal Cannula Weight: 203 lb 11.314 oz Body Mass Index (BMI) 30.0 Intake and Output for Last 24 Hours 03/02/18 03/03/18 03/04/18 23:59 23:59 23:59 Intake Total 1835 / 2487 5030 / 5030 4087.5 / 4087.5 Output Total 1675 / 1675 Balance 1835 / 2487 5030 / 5030 2412.5 / 2412.5 General: Alert, Oriented x3, Cooperative, No apparent distress HEENT: Atraumatic, PERRLA, EOMI, Normocephalic Oral: Moist Mucosa Neck: Supple, No JVD, Negative Carotid Bruits Lungs: Clear to auscultation, Normal air movement, No rhonchi, No wheeze, No rales Cardiovascular: Regular rate, Regular Rhythm, Normal S1, Normal S2, No murmurs Abdomen: Bowel Sounds Present, Soft, Passing Flatus, - - mild generalised tenderness. Laparoscopic surgical sites clean. Extremities: No edema, Capillary Refill Less than 3 Seconds, No Calf Tenderness Skin: No rashes, No breakdown Musculoskeletal: No Tenderness to Palpation of Joints or Extremities Lymphatic: No Cervical, Supraclavicular, or Inguinal Adenopathy Neurological: Cranial nerves II-XII grossly intact Psych/Mental Status: Normal Affect, Appropriate, Alert and oriented to time, place, person, mood and affect Laboratory Results 03/04/18 03:32: Lactic Acid 1.2 03/04/18 03:32: WBC 15.5 H, RBC 4.01 L, Hgb 12.2 L, Hct 36.4 L, MCV 90.8, MCH 30.4, MCHC 33.5, RDW 13.8, RDW Differential 45.5 H, Plt Count 192, MPV 10.7, Immature Gran % (Auto) 0.200, Neut % (Auto) 91.9 H, Lymph % (Auto) 2.6 L, [place] % (Auto) 5.1, Eos % (Auto) 0.1, Baso % (Auto) 0.1, Absolute Neuts (auto) 14.2 H, Absolute Lymphs (auto) 0.40 L, Total Counted Not Reportable, Differential Comment SCANNED 03/04/18 03:32: Sodium 143, Potassium 4.0, Chloride 110 H, Carbon Dioxide 26.0, Anion Gap 7, BUN 13, Creatinine 1.22, Estim Creat Clear Calc 68.41, Est GFR (MDRD) Af Amer 79, Est GFR (MDRD) Non-Af 65, BUN/Creatinine Ratio 10.7, Glucose 134 H, Calcium 8.1 L Current Medications Acetaminophen (Tylenol) 650 mg PO Q6H PRN PRN PRN Reason: Fever, headache, pain Last Admin: 03/04/18 04:58 Dose: 650 mg Al Hydroxide/Mg Hydroxide (Mylanta Ii) 15 ml PO Q6H PRN PRN PRN Reason: HEARTBURN OR INDIGESTION Last Admin: 03/01/18 22:53 Dose: 15 ml Aspirin (Ecotrin) 81 mg PO DAILY@0800 [facility] Last Admin: 03/04/18 09:10 Dose: 81 mg Atorvastatin Calcium (Lipitor) 20 mg PO QHS [facility] Last Admin: 03/03/18 20:52 Dose: 20 mg Enoxaparin Sodium (Lovenox) 40 mg SC DAILY [facility] Last Admin: 03/04/18 09:11 Dose: 40 mg Hydralazine HCl (Apresoline Iv) 10 mg IV Q8H PRN PRN PRN Reason: for SBOP>160 Sodium Chloride () 1,000 mls @ 100 mls/hr IV .Q10H [facility] Last Admin: 03/04/18 04:58 Dose: 100 mls/hr Famotidine 20 mg/ Sodium (Chloride) 10 mls @ 300 mls/hr IV Q12 [facility] Last Admin: 03/04/18 11:10 Dose: 300 mls/hr Piperacillin Sod/Tazobactam Sod (Zosyn) 3.375 gm in 50 mls @ 12.5 mls/hr IV Q8 [facility] Last Admin: 03/04/18 05:00 Dose: 12.5 mls/hr Losartan Potassium (Cozaar) 50 mg PO DAILY [facility] Last Admin: 03/04/18 09:10 Dose: 50 mg Magnesium Hydroxide (Milk Of Magnesia) 30 ml PO DAILY PRN PRN Reason: Constipation Morphine Sulfate () 2 - 4 mg IV Q2H PRN PRN PRN Reason: SEVERE PAIN (6-10/10) Last Admin: 03/04/18 09:10 Dose: 4 mg Morphine Sulfate () 2 - 4 mg IV Q2H PRN PRN PRN Reason: SEVERE PAIN (6-10/10) Ondansetron HCl (Zofran) 4 mg IV Q6H PRN PRN PRN Reason: NAUSEA/VOMITING Oxycodone HCl (Oxyir) 5 - 10 mg PO Q4H PRN PRN PRN Reason: SEVERE PAIN (6-10/10) Risperidone (Risperdal) 0.25 mg PO BID [facility] Last Admin: 03/04/18 09:11 Dose: 0.25 mg Sodium Chloride () 5 - 30 ml IV UD PRN PRN Reason: SALINE FLUSH Last Admin: 03/04/18 09:03 Dose: 10 ml Venlafaxine HCl (Effexor Xr) 150 mg PO DAILY [facility] Last Admin: 03/04/18 09:10 Dose: 150 mg Venlafaxine HCl (Effexor Xr) 75 mg PO DAILY [facility] Last Admin: 03/04/18 09:11 Dose: 75 mg Medical Necessity - Tobacco Use Smoking Status: Former smoker Assessment/Plan All Active Problems Acute cholecystitis (Acute) Chest pain (Acute) 57-year-old male admitted with a complaint of chest pain. He is being evaluated for chest pain and ACS was ruled out. 1. Acute cholecystitis s/p cholecystectomy today is POD 1. Complains of some mild pain at site of surgery had fever up to 100.9F overnight passing gas and bowel sounds are present ACS ruled out with negative troponins and negative EKG. stress test was also negative. CTPE was negative for DVT or PE wbc toay is 15; on IV zosyn. will continue per surgery notes, may have been developing cholangitis as well on pain meds- IV morphine prn 2. Hypertension elevated to 177/95 this morning. Likely due to pain on losartan. WIll likely improve with improved pain control 3. ANDREWS USG liver showed liver being 16cm in size, with fatty infiltration. liver function tests: Total ingrid-2.30, AST-220, ALT-257 this is likely due to fatty liver and ANDREWS as well as acute cholecystitis will monitor on statin 4. Hyperlipidemia: on statin 5. Anxiety/depression: on effexor and risperidone 6. DVT prophylaxis: Subcu Lovenox 7. GI prophylaxis: on Pepcid Disposition: for possible dc home tomorrow This note was generated with [employer] dictation software. It may contain incorrect words, spelling, and punctuation that were not noted in checking the note before signing. Code Visit Inpatient E&M: 62204 Subs Hosp L3
--- NOTE | 2018-03-04 12:01 | PN_ITS ---
Patient Problems: Active and Suspected Problems Acute cholecystitis (Acute) Chest pain (Acute) Subjective: 57-year-old male with past medical history of depression, anxiety, hyperlipidemia and hypertension. Was admitted via the ED on 03/01/2018 with a complaint of chest pain which started around 4 AM on morning of admission. He woke him up from sleep and which was retrosternal, sharp, 9 out of 10, nonradiating and assisted with mild shortness of breath. He thought it was due to GI pathology and took Pepto-Bismol but did not help. Pain persisted throughout the day and so he decided to come to the ED. He denied any sweating , dizziness or lightheadedness. Troponin was negative, lactic acid was slightly elevated at 2.3. D-dimer was normal, EKG shows sinus tachycardia with no acute ST changes. Chest x-ray revealed questionable left hilar mass and CT revealed no evidence of PE, dissection, no evidence of lung mass or hilar mass. CT abdomen and pelvis were also negative apart from analysis. He was admitted to be worked up for chest pain. Stress test was negative. On examination, patient had this and a diagnosis of possible acute cholecystitis was made. Right upper quadrant ultrasound showed biliary sludge. Patient had been admitted with elevated white cell count. Was started on IV ceftriaxone and general surgery consulted. He had laparoscopic cholecystectomy on 2017. Patient seen and examined today he complains of pain at site of laparoscopic cholecystectomy. He is passing gas. He denies any fever or chills, nausea vomiting or diarrhea. Review of systems otherwise negative. by his bedside at time of review. Vitals/I&O's: Vital Signs Temp Pulse Resp BP Pulse Ox 98.2 F 104 H 20 H 177/95 H 95 03/04/18 08:58 03/04/18 08:58 03/04/18 08:58 03/04/18 08:58 03/04/18 08:58 Oxygen Flow Rate (L/min) 2 Oxygen Delivery Method Nasal Cannula Weight: 203 lb 11.314 oz Body Mass Index (BMI) 30.0 Intake and Output for Last 24 Hours 03/02/18 03/03/18 03/04/18 23:59 23:59 23:59 Intake Total 1835 / 2487 5030 / 5030 4087.5 / 4087.5 Output Total 1675 / 1675 Balance 1835 / 2487 5030 / 5030 2412.5 / 2412.5 General: Alert, Oriented x3, Cooperative, No apparent distress HEENT: Atraumatic, PERRLA, EOMI, Normocephalic Oral: Moist Mucosa Neck: Supple, No JVD, Negative Carotid Bruits Lungs: Clear to auscultation, Normal air movement, No rhonchi, No wheeze, No rales Cardiovascular: Regular rate, Regular Rhythm, Normal S1, Normal S2, No murmurs Abdomen: Bowel Sounds Present, Soft, Passing Flatus, - - mild generalised tenderness. Laparoscopic surgical sites clean. Extremities: No edema, Capillary Refill Less than 3 Seconds, No Calf Tenderness Skin: No rashes, No breakdown Musculoskeletal: No Tenderness to Palpation of Joints or Extremities Lymphatic: No Cervical, Supraclavicular, or Inguinal Adenopathy Neurological: Cranial nerves II-XII grossly intact Psych/Mental Status: Normal Affect, Appropriate, Alert and oriented to time, place, person, mood and affect Laboratory Results 03/04/18 03:32: Lactic Acid 1.2 03/04/18 03:32: WBC 15.5 H, RBC 4.01 L, Hgb 12.2 L, Hct 36.4 L, MCV 90.8, MCH 30.4, MCHC 33.5, RDW 13.8, RDW Differential 45.5 H, Plt Count 192, MPV 10.7, Immature Gran % (Auto) 0.200, Neut % (Auto) 91.9 H, Lymph % (Auto) 2.6 L, [place] % (Auto) 5.1, Eos % (Auto) 0.1, Baso % (Auto) 0.1, Absolute Neuts (auto) 14.2 H , Absolute Lymphs (auto) 0.40 L, Total Counted Not Reportable, Differential Comment SCANNED 03/04/18 03:32: Sodium 143, Potassium 4.0, Chloride 110 H, Carbon Dioxide 26.0, Anion Gap 7, BUN 13, Creatinine 1.22, Estim Creat Clear Calc 68.41, Est GFR ( MDRD) Af Amer 79, Est GFR (MDRD) Non-Af 65, BUN/Creatinine Ratio 10.7, Glucose 134 H, Calcium 8.1 L Current Medications Acetaminophen (Tylenol) 650 mg PO Q6H PRN PRN PRN Reason: Fever, headache, pain Last Admin: 03/04/18 04:58 Dose: 650 mg Al Hydroxide/Mg Hydroxide (Mylanta Ii) 15 ml PO Q6H PRN PRN PRN Reason: HEARTBURN OR INDIGESTION Last Admin: 03/01/18 22:53 Dose: 15 ml Aspirin (Ecotrin) 81 mg PO DAILY@0800 [facility] Last Admin: 03/04/18 09:10 Dose: 81 mg Atorvastatin Calcium (Lipitor) 20 mg PO QHS [facility] Last Admin: 03/03/18 20:52 Dose: 20 mg Enoxaparin Sodium (Lovenox) 40 mg SC DAILY [facility] Last Admin: 03/04/18 09:11 Dose: 40 mg Hydralazine HCl (Apresoline Iv) 10 mg IV Q8H PRN PRN PRN Reason: for SBOP>160 Sodium Chloride () 1,000 mls @ 100 mls/hr IV .Q10H [facility] Last Admin: 03/04/18 04:58 Dose: 100 mls/hr Famotidine 20 mg/ Sodium (Chloride) 10 mls @ 300 mls/hr IV Q12 [facility] Last Admin: 03/04/18 11:10 Dose: 300 mls/hr Piperacillin Sod/Tazobactam Sod (Zosyn) 3.375 gm in 50 mls @ 12.5 mls/hr IV Q8 [facility] Last Admin: 03/04/18 05:00 Dose: 12.5 mls/hr Losartan Potassium (Cozaar) 50 mg PO DAILY [facility] Last Admin: 03/04/18 09:10 Dose: 50 mg Magnesium Hydroxide (Milk Of Magnesia) 30 ml PO DAILY PRN PRN Reason: Constipation Morphine Sulfate () 2 - 4 mg IV Q2H PRN PRN PRN Reason: SEVERE PAIN (6-10/10) Last Admin: 03/04/18 09:10 Dose: 4 mg Morphine Sulfate () 2 - 4 mg IV Q2H PRN PRN PRN Reason: SEVERE PAIN (6-10/10) Ondansetron HCl (Zofran) 4 mg IV Q6H PRN PRN PRN Reason: NAUSEA/VOMITING Oxycodone HCl (Oxyir) 5 - 10 mg PO Q4H PRN PRN PRN Reason: SEVERE PAIN (6-10/10) Risperidone (Risperdal) 0.25 mg PO BID [facility] Last Admin: 03/04/18 09:11 Dose: 0.25 mg Sodium Chloride () 5 - 30 ml IV UD PRN PRN Reason: SALINE FLUSH Last Admin: 03/04/18 09:03 Dose: 10 ml Venlafaxine HCl (Effexor Xr) 150 mg PO DAILY [facility] Last Admin: 03/04/18 09:10 Dose: 150 mg Venlafaxine HCl (Effexor Xr) 75 mg PO DAILY [facility] Last Admin: 03/04/18 09:11 Dose: 75 mg Medical Necessity - Tobacco Use Smoking Status: Former smoker Assessment/Plan All Active Problems Acute cholecystitis (Acute) Chest pain (Acute) 57-year-old male admitted with a complaint of chest pain. He is being evaluated for chest pain and ACS was ruled out. 1. Acute cholecystitis s/p cholecystectomy * today is POD 1. Complains of some mild pain at site of surgery * had fever up to 100.9F overnight * passing gas and bowel sounds are present * ACS ruled out with negative troponins and negative EKG. * stress test was also negative. * CTPE was negative for DVT or PE * wbc toay is 15; on IV zosyn. will continue * per surgery notes, may have been developing cholangitis as well * on pain meds- IV morphine prn * * 2. Hypertension * elevated to 177/95 this morning. Likely due to pain * on losartan. WIll likely improve with improved pain control * * 3. ANDREWS * USG liver showed liver being 16cm in size, with fatty infiltration. * liver function tests: Total ingrid-2.30, AST-220, ALT-257 * this is likely due to fatty liver and ANDREWS as well as acute cholecystitis * will monitor * on statin 4. Hyperlipidemia: on statin 5. Anxiety/depression: on effexor and risperidone 6. DVT prophylaxis: Subcu Lovenox 7. GI prophylaxis: on Pepcid Disposition: for possible dc home tomorrow This note was generated with [employer] dictation software. It may contain incorrect words, spelling, and punctuation that were not noted in checking the note before signing. Code Visit Inpatient E&M: 59527 Subs Hosp L3
[2018-03-04 13:43] LABS: AST(SGOT) 144 U/L (15-37); Alanine Aminotransfer ALT/SGPT 218 U/L (16-61); Albumin, Serum 2.6 g/dL (3.2-5.0); Alkaline Phosphatase 93 U/L (45-117); Bilirubin, Direct 3.29 mg/dL (0.00-0.30); Globulin 3.6 g/dL (2.2-4.2); Protein, Total 6.2 g/dL (6.4-8.2)
[2018-03-04] MEDS: Morphine 4 MG/ML Syringe IV (13:51)
--- NOTE | 2018-03-04 14:50 | CHAPLAIN ---
Type of Pastoral Visit _x__ Initial Visit ___ Follow-up Visit ___ On-call Visit ___ General Patient Visit ___ Spiritual Assessment ___ Family Conference ___ Bereavement ___ Rapid Response ___ Code Blue ___ Other (describe below) Pastoral Care Referral From _x__ Patient ___ Family ___ Nurse ___ Physician ___ Rod Buster ___ Animal Rescuer ___ Other (describe below) Sacrament/Intervention _x__ Active listening ___ Anointing ___ Islam ___ Bereavement ___ Communion ___ Regine exploration ___ ___ Life review _x__ Prayer ___ Reconciliation ___ Sacrament of Sick ___ Supportive presence ___ Wedding ___ Other (describe below) Pastoral Comments
[2018-03-04] MEDS: Atorvastatin Calcium 20 MG Tablet PO (21:57)
[2018-03-04] MEDS: Carvedilol 12.5 MG Tablet PO (22:02)
[2018-03-05] VITALS (14 sets, daily range): BP systolic 140–169; BP diastolic 90–120; PULSE 68–84; RESP 16–18; TEMP 36.6–37.1; O2SAT 91–98
[2018-03-05] MEDS: 0.9% Normal Saline 1,000 ML 100 ML IV (00:17)
[2018-03-05] MEDS: amLODIPine 10 MG Tablet PO (03:37)
[2018-03-05] MEDS: Piperacil/Tazobactam 3.375 GM/50 ML ML IV ×3 (05:26→21:20)
[2018-03-05] MEDS: oxyCODONE 5 MG Tablet PO ×3 (05:26→18:21)
[2018-03-05 07:19] LABS: Absolute Lymphocyte Count 0.58 X10^3/ul (0.83-4.51); Basophil# 0.02 X10^3/uL; Basophil% 0.3 % (0-1); Eosinophil# 0.29 X10^3/uL; Eosinophils% 3.8 % (0-5); Hemoglobin 12.3 g/dl (13.0-16.5); Lymphocyte # 0.58 X10^3/ul (4.0); Lymphocyte % 7.6 % (19-41); Mean Corp Hgb Conc 31.5 g/gl (32-36); Mean Corpuscular Hgb 28.8 pg (27.0-32.0); Mean Corpuscular Volume 91.3 fL (80-94); Mean Platelet Vol. 10.6 fl (6.2-12.0); Monocyte# 0.78 X10^3/uL; Monocyte% 10.2 % (0-10); Neutrophil # 5.98 X10^3/uL (2.7-7.7); Platelet Count 216 K/mm3 (150-450); RBC Distribution Width CV 14.4 % (11.6-14.6); RBC Distribution Width SD 48.3 fl (35.1-43.9); Red Blood Count 4.27 M/mm3 (4.6-6.2); White Blood Count 7.7 K/mm3 (4.4-11.0)
[2018-03-05 07:20] LABS: ALB/GLOB Ratio 0.6 RATIO (0.9-2.4); AST(SGOT) 105 U/L (15-37); Alanine Aminotransfer ALT/SGPT 199 U/L (16-61); Albumin, Serum 2.5 g/dL (3.2-5.0); Alkaline Phosphatase 115 U/L (45-117); Anion Gap 7 (5-15); BUN 12 mg/dL (7-18); BUN/Creat Ratio 11.2 RATIO (10-20); Calcium,Total 8.2 mg/dL (8.5-10.1); Chloride 107 mmol/L (98-107); Creatinine, Serum 1.07 mg/dL (0.70-1.30); EST Glomerular Filtration Rate 76 mL/min (>60); Est Glom Filt Rate - Afr Amer 92 mL/min (>60); Globulin 3.9 g/dL (2.2-4.2); Glucose 108 mg/dL (74-106); Potassium 3.6 mmol/L (3.5-5.1); Protein, Total 6.4 g/dL (6.4-8.2); Sodium Level 143 mmol/L (136-145)
[2018-03-05 07:22] LABS: Differential Indicated SCAN CRITERIA MET; POSITIVE COUNT NO; POSITIVE DIFFERENTIAL YES; POSITIVE MORPHOLOGY NO
--- NOTE | 2018-03-05 07:36 | PCM.PN.HOSP ---
Patient Problems: Active and Suspected Problems Acute cholecystitis (Acute) Chest pain (Acute) Vitals/I&O's: Vital Signs Temp Pulse Resp BP Pulse Ox 98.1 F 82 18 169/108 H 93 03/05/18 05:29 03/05/18 05:29 03/05/18 05:29 03/05/18 05:29 03/05/18 05:29 Oxygen Flow Rate (L/min) 2 Oxygen Delivery Method Room Air Weight: 92.4 kg Body Mass Index (BMI) 30.0 Intake and Output for Last 24 Hours 03/03/18 03/04/18 03/05/18 23:59 23:59 23:59 Intake Total 5030 / 5030 6259.6 / 6259.6 410.8 / 410.8 Output Total 5175 / 5175 1350 / 1350 Balance 5030 / 5030 1084.6 / 1084.6 -939.2 / -939.2 Laboratory Results 03/04/18 03:32: Sodium 143, Potassium 4.0, Chloride 110 H, Carbon Dioxide 26.0, Anion Gap 7, BUN 13, Creatinine 1.22, Estim Creat Clear Calc 68.41, Est GFR (MDRD) Af Amer 79, Est GFR (MDRD) Non-Af 65, BUN/Creatinine Ratio 10.7, Glucose 134 H, Calcium 8.1 L 03/04/18 03:32: Total Bilirubin 4.00 H, Direct Bilirubin 3.29 H, AST 144 H, ALT 218 H, Alkaline Phosphatase 93, Total Protein 6.2 L, Albumin 2.6 L, Globulin 3.6 03/05/18 05:25: WBC 7.7, RBC 4.27 L, Hgb 12.3 L, Hct 39.0 L, MCV 91.3, MCH 28.8, MCHC 31.5 L, RDW 14.4, RDW Differential 48.3 H, Plt Count 216, MPV 10.6, Immature Gran % (Auto) 0.100, Neut % (Auto) 78.0 H, Lymph % (Auto) 7.6 L, [place] % (Auto) 10.2 H, Eos % (Auto) 3.8, Baso % (Auto) 0.3, Absolute Neuts (auto) 6.0, Absolute Lymphs (auto) 0.58 L, Total Counted Pending 03/05/18 05:25: Sodium 143, Potassium 3.6, Chloride 107, Carbon Dioxide 29.0, Anion Gap 7, BUN 12, Creatinine 1.07, Estim Creat Clear Calc 78.00, Est GFR (MDRD) Af Amer 92, Est GFR (MDRD) Non-Af 76, BUN/Creatinine Ratio 11.2, Glucose 108 H, Calcium 8.2 L, Total Bilirubin 3.00 H, AST 105 H, ALT 199 H, Alkaline Phosphatase 115, Total Protein 6.4, Albumin 2.5 L, Globulin 3.9, Albumin/Globulin Ratio 0.6 L Current Medications Acetaminophen (Tylenol) 650 mg PO Q6H PRN PRN PRN Reason: Fever, headache, pain Last Admin: 03/04/18 19:03 Dose: 650 mg Al Hydroxide/Mg Hydroxide (Mylanta Ii) 15 ml PO Q6H PRN PRN PRN Reason: HEARTBURN OR INDIGESTION Last Admin: 03/01/18 22:53 Dose: 15 ml Amlodipine Besylate (Norvasc) 10 mg PO DAILY [facility] Last Admin: 03/05/18 03:37 Dose: 10 mg Aspirin (Ecotrin) 81 mg PO DAILY@0800 [facility] Last Admin: 03/04/18 09:10 Dose: 81 mg Atorvastatin Calcium (Lipitor) 20 mg PO QHS [facility] Last Admin: 03/04/18 21:57 Dose: 20 mg Carvedilol (Coreg) 12.5 mg PO BID [facility] Last Admin: 03/04/18 22:02 Dose: 12.5 mg Enoxaparin Sodium (Lovenox) 40 mg SC DAILY [facility] Last Admin: 03/04/18 09:11 Dose: 40 mg Hydralazine HCl (Apresoline Iv) 10 mg IV Q8H PRN PRN PRN Reason: for SBOP>160 Famotidine 20 mg/ Sodium (Chloride) 10 mls @ 300 mls/hr IV Q12 [facility] Last Admin: 03/04/18 21:57 Dose: 300 mls/hr Piperacillin Sod/Tazobactam Sod (Zosyn) 3.375 gm in 50 mls @ 12.5 mls/hr IV Q8 [facility] Last Admin: 03/05/18 05:26 Dose: 12.5 mls/hr Losartan Potassium (Cozaar) 50 mg PO DAILY [facility] Last Admin: 03/04/18 09:10 Dose: 50 mg Magnesium Hydroxide (Milk Of Magnesia) 30 ml PO DAILY PRN PRN Reason: Constipation Morphine Sulfate () 2 - 4 mg IV Q2H PRN PRN PRN Reason: SEVERE PAIN (6-10/10) Last Admin: 03/04/18 09:10 Dose: 4 mg Morphine Sulfate () 2 - 4 mg IV Q2H PRN PRN PRN Reason: SEVERE PAIN (6-10/10) Last Admin: 03/04/18 13:51 Dose: 4 mg Nutritional Formula (Lactose Free) (Ensure Enlive) 120 ml PO 4X/DAY [facility] Last Admin: 03/04/18 21:57 Dose: Not Given Ondansetron HCl (Zofran) 4 mg IV Q6H PRN PRN PRN Reason: NAUSEA/VOMITING Oxycodone HCl (Oxyir) 5 - 10 mg PO Q4H PRN PRN PRN Reason: SEVERE PAIN (6-10/10) Last Admin: 03/05/18 05:26 Dose: 5 mg Risperidone (Risperdal) 0.25 mg PO BID [facility] Last Admin: 03/04/18 21:57 Dose: 0.25 mg Sodium Chloride () 5 - 30 ml IV UD PRN PRN Reason: SALINE FLUSH Last Admin: 03/04/18 13:51 Dose: 10 ml Venlafaxine HCl (Effexor Xr) 150 mg PO DAILY [facility] Last Admin: 03/04/18 09:10 Dose: 150 mg Venlafaxine HCl (Effexor Xr) 75 mg PO DAILY [facility] Last Admin: 03/04/18 09:11 Dose: 75 mg Medical Necessity - Tobacco Use Smoking Status: Former smoker Assessment/Plan All Active Problems Acute cholecystitis (Acute) Chest pain (Acute)
[2018-03-05 08:09] LABS: Differential Comment SCANNED
[2018-03-05] MEDS: Aspirin E.C. 81 MG Tablet PO (08:10)
--- NOTE | 2018-03-05 08:46 | PCM.PN.SRG ---
Patient Problems: Active and Suspected Problems Acute cholecystitis (Acute) Chest pain (Acute) Subjective: Patient tolerated Ensure states does not have much of an appetite, positive flatus, just got to the chair, pain controlled with p.o. pain meds - Physical Exam General: Alert, Oriented x3, Cooperative Abdomen: Soft, Distended - Mild, Tender - Near incision sites, clean dry and intact, - - No guarding or rebound Extremities: No clubbing, No cyanosis, No edema Vital Signs Temp Pulse Resp BP Pulse Ox 97.9 F 78 18 165/105 H 95 03/05/18 08:02 03/05/18 08:02 03/05/18 08:02 03/05/18 08:02 03/05/18 08:02 Oxygen Flow Rate (L/min) 2 Oxygen Delivery Method Room Air Weight: 203 lb 11.314 oz Body Mass Index (BMI) 30.0 Intake and Output for Last 24 Hours 03/03/18 03/04/18 03/05/18 23:59 23:59 23:59 Intake Total 5030 / 5030 6259.6 / 6259.6 410.8 / 410.8 Output Total 5175 / 5175 1350 / 1350 Balance 5030 / 5030 1084.6 / 1084.6 -939.2 / -939.2 Laboratory Tests Past 24 Hrs 03/04/18 03/05/18 03/05/18 03:32 05:25 05:25 WBC 7.7 RBC 4.27 L Hgb 12.3 L Hct 39.0 L MCV 91.3 MCH 28.8 MCHC 31.5 L RDW 14.4 RDW Differential 48.3 H Plt Count 216 MPV 10.6 Immature Gran % (Auto) 0.100 Neut % (Auto) 78.0 H Lymph % (Auto) 7.6 L [place] % (Auto) 10.2 H Eos % (Auto) 3.8 Baso % (Auto) 0.3 Absolute Neuts (auto) 6.0 Absolute Lymphs (auto) 0.58 L Total Counted Not Reportable Differential Comment SCANNED Sodium 143 Potassium 3.6 Chloride 107 Carbon Dioxide 29.0 Anion Gap 7 BUN 12 Creatinine 1.07 Estim Creat Clear Calc 78.00 Est GFR (MDRD) Af Amer 92 Est GFR (MDRD) Non-Af 76 BUN/Creatinine Ratio 11.2 Glucose 108 H Calcium 8.2 L Total Bilirubin 4.00 H 3.00 H Direct Bilirubin 3.29 H AST 144 H 105 H ALT 218 H 199 H Alkaline Phosphatase 93 115 Total Protein 6.2 L 6.4 Albumin 2.6 L 2.5 L Globulin 3.6 3.9 Albumin/Globulin Ratio 0.6 L Medical Necessity - Tobacco Use Smoking Status: Former smoker Assessment/Plan All Active Problems Acute cholecystitis (Acute) Chest pain (Acute) 57-year-old male status post laparoscopic cholecystectomy with acute cholecystitis, choledocholithiasis 1. Patient tolerating Ensure but states does not have much of an appetite. Continue regular diet. Positive flatus will make sure patient is on a stool softener as no bowel movement since Wednesday 2. Patient just got up to chair will encourage up to chair as well as ambulation today. 3. Continue antibiotics for acute cholecystitis and possible start of cholangitis prior to cholangiogram and stone being dislodged. Patient will likely go home on 2-3 days of Augmentin at [place]. 4. Plan for likely DC tomorrow if patient is tolerating p.o., ambulating, vital signs stable, pain controlled with pain meds. Vanessa Grande M.D. Pager: [phone] [facility] [address] [place] [address], [facility], [address] [place] [id number] Office: [phone]
[2018-03-05] MEDS: Venlafaxine XR 75 MG Capsule PO (09:55)
[2018-03-05] MEDS: Enoxaparin 40 MG/0.4 ML Syringe SC (09:55)
[2018-03-05] MEDS: Venlafaxine XR 150 MG Capsule PO (09:55)
[2018-03-05] MEDS: Losartan Potassium 50 MG Tablet PO ×2 (09:56→14:19)
[2018-03-05] MEDS: RisperiDONE 0.25 MG Tablet PO ×2 (09:56→21:18)
[2018-03-05] MEDS: Carvedilol 12.5 MG Tablet PO ×2 (09:57→21:18)
[2018-03-05] MEDS: 0.9% NaCl Peripheral Flush Adult/Peds IV ×2 (10:04→21:20)
[2018-03-05] MEDS: Docusate Sodium 100 MG Capsule PO ×2 (10:05→21:17)
--- NOTE | 2018-03-05 12:50 | PN_ITS ---
<Ab Smith - Last Filed: 03/05/18 12:40> Patient Problems: Active and Suspected Problems Acute cholecystitis (Acute) Chest pain (Acute) Subjective: Pt resting comfortably in bed. RUQ pain is still present but it is improved. No fevers or chills, no SOB. + flatus. No BM. Minimal PO intake. No appetite. Eating only ensure. - Physical Exam General: Alert, Oriented x3, Cooperative HEENT: Atraumatic, PERRLA, EOMI, Normocephalic Neck: Supple, No JVD, Negative Carotid Bruits Lungs: Clear to auscultation, Normal air movement Cardiovascular: Regular rate, No murmurs Abdomen: Bowel Sounds Present, Soft, Non Tender Extremities: No edema, Capillary Refill Less than 3 Seconds Skin: No rashes, No breakdown Musculoskeletal: No Tenderness to Palpation of Joints or Extremities Neurological: Cranial nerves II-XII grossly intact Psych/Mental Status: Normal Affect, Appropriate Vital Signs Temp Pulse Resp BP Pulse Ox 98.3 F 76 18 159/110 H 91 03/05/18 09:52 03/05/18 11:10 03/05/18 09:52 03/05/18 09:52 03/05/18 11:30 Oxygen Flow Rate (L/min) 2 Oxygen Delivery Method Room Air Weight: 92.4 kg Body Mass Index (BMI) 30.0 Intake and Output for Last 24 Hours 03/03/18 03/04/18 03/05/18 23:59 23:59 23:59 Intake Total 5030 / 5030 6259.6 / 6259.6 410.8 / 410.8 Output Total 5175 / 5175 1350 / 1350 Balance 5030 / 5030 1084.6 / 1084.6 -939.2 / -939.2 Laboratory Tests Past 24 Hrs 03/04/18 03/05/18 03/05/18 03:32 05:25 05:25 WBC 7.7 RBC 4.27 L Hgb 12.3 L Hct 39.0 L MCV 91.3 MCH 28.8 MCHC 31.5 L RDW 14.4 RDW Differential 48.3 H Plt Count 216 MPV 10.6 Immature Gran % (Auto) 0.100 Neut % (Auto) 78.0 H Lymph % (Auto) 7.6 L Mills % (Auto) 10.2 H Eos % (Auto) 3.8 Baso % (Auto) 0.3 Absolute Neuts (auto) 6.0 Absolute Lymphs (auto) 0.58 L Total Counted Not Reportable Differential Comment SCANNED Sodium 143 Potassium 3.6 Chloride 107 Carbon Dioxide 29.0 Anion Gap 7 BUN 12 Creatinine 1.07 Estim Creat Clear Calc 78.00 Est GFR (MDRD) Af Amer 92 Est GFR (MDRD) Non-Af 76 BUN/Creatinine Ratio 11.2 Glucose 108 H Calcium 8.2 L Total Bilirubin 4.00 H 3.00 H Direct Bilirubin 3.29 H AST 144 H 105 H ALT 218 H 199 H Alkaline Phosphatase 93 115 Total Protein 6.2 L 6.4 Albumin 2.6 L 2.5 L Globulin 3.6 3.9 Albumin/Globulin Ratio 0.6 L Medical Necessity - Tobacco Use Smoking Status: Former smoker Assessment/Plan All Active Problems Acute cholecystitis (Acute) Chest pain (Acute) 1. Acute cholecystitis s/p arcelia - pain controlled. POD#2. Afebrile >24 hours. WBC improved. Zosyn. Transition to augmentin at DC 2. HTN - poorly controlled. will adjust. 3. ANDREWS - stable 4. Anx/Dep - home meds. DVT ppx: lovenox DC planning: plan to DC home tomorrow. This patient was seen by Ab Smith PA-C under the supervision of Doctor Seymour. <Padmini Ahuja - Last Filed: 03/05/18 13:33> - Physical Exam Vital Signs Temp Pulse Resp BP Pulse Ox 98.3 F 76 18 159/110 H 91 03/05/18 09:52 03/05/18 11:10 03/05/18 09:52 03/05/18 09:52 03/05/18 11:30 Oxygen Flow Rate (L/min) 2 Oxygen Delivery Method Room Air Weight: 92.4 kg Body Mass Index (BMI) 30.0 Intake and Output for Last 24 Hours 03/03/18 03/04/18 03/05/18 23:59 23:59 23:59 Intake Total 5030 / 5030 6259.6 / 6259.6 508.8 / 508.8 Output Total 5175 / 5175 1700 / 1700 Balance 5030 / 5030 1084.6 / 1084.6 -1191.2 / -1191.2 Laboratory Tests Past 24 Hrs 03/04/18 03/05/18 03/05/18 03:32 05:25 05:25 WBC 7.7 RBC 4.27 L Hgb 12.3 L Hct 39.0 L MCV 91.3 MCH 28.8 MCHC 31.5 L RDW 14.4 RDW Differential 48.3 H Plt Count 216 MPV 10.6 Immature Gran % (Auto) 0.100 Neut % (Auto) 78.0 H Lymph % (Auto) 7.6 L Mills % (Auto) 10.2 H Eos % (Auto) 3.8 Baso % (Auto) 0.3 Absolute Neuts (auto) 6.0 Absolute Lymphs (auto) 0.58 L Total Counted Not Reportable Differential Comment SCANNED Sodium 143 Potassium 3.6 Chloride 107 Carbon Dioxide 29.0 Anion Gap 7 BUN 12 Creatinine 1.07 Estim Creat Clear Calc 78.00 Est GFR (MDRD) Af Amer 92 Est GFR (MDRD) Non-Af 76 BUN/Creatinine Ratio 11.2 Glucose 108 H Calcium 8.2 L Total Bilirubin 4.00 H 3.00 H Direct Bilirubin 3.29 H AST 144 H 105 H ALT 218 H 199 H Alkaline Phosphatase 93 115 Total Protein 6.2 L 6.4 Albumin 2.6 L 2.5 L Globulin 3.6 3.9 Albumin/Globulin Ratio 0.6 L Assessment/Plan Patient was seen and examined. Agree with the above interval history, physical exam and assessment and plan as documented by physician assistant press operator Ab Smith. Patient complains of generalized pain but pain in the right upper quadrant is fairly controlled. Denies any fever or chills or difficulty breathing BP is uncontrolled but otherwise stable Physical exam: CVS: Heart Sounds 1 and 2 present no other sounds RESP: Diminished at the lung bases but otherwise vesicular breath sounds no added sounds GI: Laparoscopic scar and dressing, abdomen is soft, nontender except for the right upper quadrant, bowel sounds are present EXT: No edema A/P 1. Hypertension, uncontrolled, will make adjustments to medication 2. Acute cholecystitis status post laparoscopic cholecystectomy 3. ANDREWS 4. Anxiety/depression Possible discharge in a.m. if patient is stable, and if the surgeon approves Code Visit Inpatient E&M: 43924 Subs Hosp L2
[2018-03-05] MEDS: Acetaminophen 325 MG Tablet 650 MG PO ×2 (12:52→19:24)
[2018-03-05] MEDS: Atorvastatin Calcium 20 MG Tablet PO (21:18)
[2018-03-06 03:00] VITALS: PULSE 69
[2018-03-06 03:01] VITALS: BP 144/94; PULSE 69; RESP 14; TEMP 36.8; O2SAT 93
[2018-03-06] MEDS: Piperacil/Tazobactam 3.375 GM/50 ML ML IV (05:35)
[2018-03-06 05:53] LABS: Absolute Lymphocyte Count 0.72 X10^3/ul (0.83-4.51); Absolute Neutrophil Count 3.5 X10^3/uL (2.0-7.7); Basophil# 0.02 X10^3/uL; Basophil% 0.4 % (0-1); Eosinophil# 0.27 X10^3/uL; Eosinophils% 5.2 % (0-5); Hematocrit 37.4 % (40-54); Lymphocyte # 0.72 X10^3/ul (4.0); Lymphocyte % 13.8 % (19-41); Mean Corp Hgb Conc 32.1 g/gl (32-36); Mean Corpuscular Hgb 28.7 pg (27.0-32.0); Mean Corpuscular Volume 89.5 fL (80-94); Mean Platelet Vol. 10.6 fl (6.2-12.0); Monocyte% 13.4 % (0-10); Neutrophil # 3.47 X10^3/uL (2.7-7.7); Neutrophil % 66.4 % (47-70); Platelet Count 216 K/mm3 (150-450); RBC Distribution Width CV 14.4 % (11.6-14.6); Red Blood Count 4.18 M/mm3 (4.6-6.2); White Blood Count 5.2 K/mm3 (4.4-11.0)
[2018-03-06 05:57] LABS: POSITIVE COUNT NO; POSITIVE DIFFERENTIAL NO; POSITIVE MORPHOLOGY NO
[2018-03-06 06:31] LABS: AST(SGOT) 64 U/L (15-37); Alanine Aminotransfer ALT/SGPT 154 U/L (16-61); Albumin, Serum 2.3 g/dL (3.2-5.0); Alkaline Phosphatase 125 U/L (45-117); Anion Gap 9 (5-15); BUN 13 mg/dL (7-18); BUN/Creat Ratio 12.3 RATIO (10-20); Bilirubin, Direct 1.25 mg/dL (0.00-0.30); Calcium,Total 8.3 mg/dL (8.5-10.1); Chloride 105 mmol/L (98-107); Creatinine, Serum 1.06 mg/dL (0.70-1.30); EST Glomerular Filtration Rate 77 mL/min (>60); Est Glom Filt Rate - Afr Amer 93 mL/min (>60); Estimated Creatinine Clearance 78.74 ml/min; Globulin 3.8 g/dL (2.2-4.2); Glucose 122 mg/dL (74-106); Potassium 3.2 mmol/L (3.5-5.1); Protein, Total 6.1 g/dL (6.4-8.2); Sodium Level 140 mmol/L (136-145)
[2018-03-06 07:00] VITALS: PULSE 62
[2018-03-06 07:45] VITALS: O2SAT 92
--- NOTE | 2018-03-06 08:53 | PCM.PN.SRG ---
Patient Problems: Active and Suspected Problems Acute cholecystitis (Acute) Chest pain (Acute) Subjective: Patient has been ambulating the samuel yesterday states pain is getting better every day. - Physical Exam General: Alert, Oriented x3, Cooperative, No apparent distress Abdomen: Soft, Non-Distended, Tender - Near incisions appropriately, incision clean dry and intact, no guarding or rebound Extremities: No clubbing, No cyanosis, No edema Vital Signs Temp Pulse Resp BP Pulse Ox 98.2 F 62 14 144/94 H 92 03/06/18 03:01 03/06/18 07:00 03/06/18 03:01 03/06/18 03:01 03/06/18 07:45 Oxygen Flow Rate (L/min) 2 Oxygen Delivery Method Room Air Weight: 203 lb 11.314 oz Body Mass Index (BMI) 30.0 Intake and Output for Last 24 Hours 03/04/18 03/05/18 03/06/18 23:59 23:59 23:59 Intake Total 6259.6 / 6259.6 2066.1 / 2066.1 72.3 / 72.3 Output Total 5175 / 5175 1700 / 1700 Balance 1084.6 / 1084.6 366.1 / 366.1 72.3 / 72.3 Laboratory Tests Past 24 Hrs 03/06/18 03/06/18 05:20 05:20 WBC 5.2 RBC 4.18 L Hgb 12.0 L Hct 37.4 L MCV 89.5 MCH 28.7 MCHC 32.1 RDW 14.4 RDW Differential 47.0 H Plt Count 216 MPV 10.6 Immature Gran % (Auto) 0.800 Neut % (Auto) 66.4 Lymph % (Auto) 13.8 L Zavala % (Auto) 13.4 H Eos % (Auto) 5.2 H Baso % (Auto) 0.4 Absolute Neuts (auto) 3.5 Absolute Lymphs (auto) 0.72 L Total Counted Not Reportable Sodium 140 Potassium 3.2 L Chloride 105 Carbon Dioxide 26.0 Anion Gap 9 BUN 13 Creatinine 1.06 Estim Creat Clear Calc 78.74 Est GFR (MDRD) Af Amer 93 Est GFR (MDRD) Non-Af 77 BUN/Creatinine Ratio 12.3 Glucose 122 H Calcium 8.3 L Total Bilirubin 1.80 H Direct Bilirubin 1.25 H AST 64 H ALT 154 H Alkaline Phosphatase 125 H Total Protein 6.1 L Albumin 2.3 L Globulin 3.8 Medical Necessity - Tobacco Use Smoking Status: Former smoker Assessment/Plan All Active Problems Acute cholecystitis (Acute) Chest pain (Acute) 57-year-old male status post laparoscopic cholecystectomy with acute cholecystitis, choledocholithiasis 1. Patient tolerating regular diet. 2. Ambulating in halls 3. We will continue Augmentin 875 p.o. twice daily for 2 more days after discharge, prescription written. Prescription also written for Percocet for pain. 4. Okay to DC per surgery, follow-up with Dr. Mackay in 2 weeks Vanessa Grande M.D. Pager: [phone] [facility] [address] [place] [address], [address] [place] [address] Office: [phone]
--- NOTE | 2018-03-06 08:55 | PCM.DC.GB ---
Discharge Diet: No Restrictions Discharge Activity: May not drive while taking narcotic pain medications. May shower in (days): 0 Lifting Restrictions: no lifting >20 lb for 4 weeks from surgery Call your doctor if your incision/area has: Continuous Slow Oozing, Sudden Increased Bleeding, Increased Pain/ Swelling, Increased Redness, Foul Smelling Discharge, Swelling at the incision site Call your doctor if you observe: Fever of 101 or Higher Additional Instructions: Percocet may cause constipation. Okay to take ibuprofen with the Percocet however do not take Tylenol as Tylenol is already in the Percocet. Make sure he take all pain meds with food. Recommend stool softener i.e. Colace twice daily until having bowel function okay to go to once daily. If not having any bowel function may take MiraLAX a few doses throughout the day. If no results from the MiraLAX and recommend taking half a bottle of magnesium citrate the following day and if no results in 6 hours drink the remaining half the bottle. Allergies/Adverse Reactions: Allergies No Known Allergies Allergy (Verified 03/01/18 16:30) Medications to take at Discharge Atorvastatin Calcium [Lipitor] 20 mg PO DAILY 02/02/17 Losartan Potassium [Cozaar] 50 mg PO DAILY 02/02/17 Risperidone [Risperdal] 0.25 mg PO BID 02/02/17 Venlafaxine XR [Effexor Xr] 225 mg PO DAILY 02/02/17 Amoxicillin/Potassium Clav [Augmentin 875-125 Tablet] 1 ea PO BID #4 tab 03/06/18 Oxycodone HCl/Acetaminophen [Percocet 5/325] 1 - 2 tablet PO Q4H PRN PRN 3 Days #25 tablet 03/06/18 The following prescriptions were given: Oxycodone HCl/Acetaminophen [Percocet 5/325] 1 - 2 tablet PO Q4H PRN PRN 3 Days #25 tablet PRN Reason: Pain Amoxicillin/Potassium Clav [Augmentin 875-125 Tablet] 1 ea PO BID #4 tab Primary Care Physician: Genna Sheppard DO [Primary Care Provider] - Test Results: Test results from this visit will be discussed in further detail at your follow-up appointment, if applicable. Please Follow Up With: Mgadi Mackay MD - After 5:00/weekends call [phone] any concerns When: Call the office for a follow-up appointment in 2 weeks. Proposed Discharge Date: 03/06/18
[2018-03-06 08:56] VITALS: BP 159/94; PULSE 60; RESP 18; TEMP 36.6; O2SAT 96
[2018-03-06] MEDS: Aspirin E.C. 81 MG Tablet PO (08:58)
--- NOTE | 2018-03-06 08:59 | DCINST_ITS ---
Discharge Diet: No Restrictions Discharge Activity: May not drive while taking narcotic pain medications. May shower in (days): 0 Lifting Restrictions: no lifting >20 lb for 4 weeks from surgery Call your doctor if your incision/area has: Continuous Slow Oozing, Sudden Increased Bleeding, Increased Pain/ Swelling, Increased Redness, Foul Smelling Discharge, Swelling at the incision site Call your doctor if you observe: Fever of 101 or Higher Additional Instructions: Percocet may cause constipation. Okay to take ibuprofen with the Percocet however do not take Tylenol as Tylenol is already in the Percocet. Make sure he take all pain meds with food. Recommend stool softener i.e. Colace twice daily until having bowel function okay to go to once daily. If not having any bowel function may take MiraLAX a few doses throughout the day. If no results from the MiraLAX and recommend taking half a bottle of magnesium citrate the following day and if no results in 6 hours drink the remaining half the bottle. Allergies/Adverse Reactions: Allergies No Known Allergies Allergy (Verified 03/01/18 16:30) Medications to take at Discharge Atorvastatin Calcium [Lipitor] 20 mg PO DAILY 02/02/17 Losartan Potassium [Cozaar] 50 mg PO DAILY 02/02/17 Risperidone [Risperdal] 0.25 mg PO BID 02/02/17 Venlafaxine XR [Effexor Xr] 225 mg PO DAILY 02/02/17 Amoxicillin/Potassium Clav [Augmentin 875-125 Tablet] 1 ea PO BID #4 tab Oxycodone HCl/Acetaminophen [Percocet 5/325] 1 - 2 tablet PO Q4H PRN PRN 3 Days #25 tablet 03/06/18 The following prescriptions were given: Oxycodone HCl/Acetaminophen [Percocet 5/325] 1 - 2 tablet PO Q4H PRN PRN 3 Days #25 tablet PRN Reason: Pain Amoxicillin/Potassium Clav [Augmentin 875-125 Tablet] 1 ea PO BID #4 tab Primary Care Physician: Genna Sheppard DO [Primary Care Provider] - Test Results: Test results from this visit will be discussed in further detail at your follow- up appointment, if applicable. Please Follow Up With: Magdi Mackay MD - After 5:00/weekends call any concerns When: Call the office for a follow-up appointment in 2 weeks. Proposed Discharge Date: 03/06/18
[2018-03-06] MEDS: RisperiDONE 0.25 MG Tablet PO (09:01)
[2018-03-06] MEDS: Docusate Sodium 100 MG Capsule PO (09:01)
[2018-03-06] MEDS: Venlafaxine XR 75 MG Capsule PO (09:01)
[2018-03-06] MEDS: Venlafaxine XR 150 MG Capsule PO (09:01)
[2018-03-06] MEDS: Carvedilol 12.5 MG Tablet PO (09:01)
[2018-03-06] MEDS: amLODIPine 10 MG Tablet PO (09:01)
[2018-03-06] MEDS: 0.9% NaCl Peripheral Flush Adult/Peds IV (09:02)
[2018-03-06] MEDS: Enoxaparin 40 MG/0.4 ML Syringe SC (09:02)
[2018-03-06] MEDS: Losartan Potassium 100 MG Tablet PO (09:10)
--- NOTE | 2018-03-06 10:45 | PCM.DC ---
- Discharge Diagnoses Current Active Problems: Current Active and Chronic Problems Acute cholecystitis (Acute) Chest pain (Acute) Depression (Chronic) Anxiety (Chronic) Hyperlipidemia (Chronic) Hypertension (Chronic) You will use the following diet at home:: Cardiac - <2 g sodium daily. Your food should be the consistency of: Regular Your liquids should be the consistency of: Regular/Thin Discharge Activity: Return to Normal Activity, May not drive while taking narcotic pain medications., - - as directed by surgery May shower in (days): 0 Call your doctor if your incision/area has: Continuous Slow Oozing, Sudden Increased Bleeding, Increased Pain/ Swelling, Increased Redness, Foul Smelling Discharge, Swelling at the incision site Call your doctor if you observe: Fever of 101 or Higher Additional Instructions: please monitor your blood pressure daily, log them in a journal, and present the findings to your PCP at follow up. Allergies/Adverse Reactions: Allergies No Known Allergies Allergy (Verified 03/01/18 16:30) Medications to take at Discharge Atorvastatin Calcium [Lipitor] 20 mg PO DAILY 02/02/17 Losartan Potassium [Cozaar] 50 mg PO DAILY 02/02/17 Risperidone [Risperdal] 0.25 mg PO BID 02/02/17 Venlafaxine XR [Effexor Xr] 225 mg PO DAILY 02/02/17 Amoxicillin/Potassium Clav [Augmentin 875-125 Tablet] 1 ea PO BID #4 tab 03/06/18 Oxycodone HCl/Acetaminophen [Percocet 5/325] 1 - 2 tablet PO Q4H PRN PRN 3 Days #25 tablet 03/06/18 The following prescriptions were given: Amoxicillin/Potassium Clav [Augmentin 875-125 Tablet] 1 ea PO BID #4 tab Oxycodone HCl/Acetaminophen [Percocet 5/325] 1 - 2 tablet PO Q4H PRN PRN 3 Days #25 tablet PRN Reason: Pain Primary Care Physician: Genna Sheppard DO [Primary Care Provider] - Please follow up with your Primary Care Physician in: 1 week Test Results: Test results from this visit will be discussed in further detail at your follow-up appointment, if applicable. Please Follow Up With: Magdi Mackay MD - After 5:00/weekends call [phone] any concerns When: Call the office for a follow-up appointment in 2 weeks. Proposed Discharge Date: 03/06/18
--- NOTE | 2018-03-06 10:53 | DCINST_ITS ---
- Discharge Diagnoses Current Active Problems: Current Active and Chronic Problems Acute cholecystitis (Acute) Chest pain (Acute) Depression (Chronic) Anxiety (Chronic) Hyperlipidemia (Chronic) Hypertension (Chronic) You will use the following diet at home:: Cardiac - <2 g sodium daily. Your food should be the consistency of: Regular Your liquids should be the consistency of: Regular/Thin Discharge Activity: Return to Normal Activity, May not drive while taking narcotic pain medications., - - as directed by surgery May shower in (days): 0 Call your doctor if your incision/area has: Continuous Slow Oozing, Sudden Increased Bleeding, Increased Pain/ Swelling, Increased Redness, Foul Smelling Discharge, Swelling at the incision site Call your doctor if you observe: Fever of 101 or Higher Additional Instructions: please monitor your blood pressure daily, log them in a journal, and present the findings to your PCP at follow up. Allergies/Adverse Reactions: Allergies No Known Allergies Allergy (Verified 03/01/18 16:30) Medications to take at Discharge Atorvastatin Calcium [Lipitor] 20 mg PO DAILY 02/02/17 Losartan Potassium [Cozaar] 50 mg PO DAILY 02/02/17 Risperidone [Risperdal] 0.25 mg PO BID 02/02/17 Venlafaxine XR [Effexor Xr] 225 mg PO DAILY 02/02/17 Amoxicillin/Potassium Clav [Augmentin 875-125 Tablet] 1 ea PO BID #4 tab Oxycodone HCl/Acetaminophen [Percocet 5/325] 1 - 2 tablet PO Q4H PRN PRN 3 Days #25 tablet 03/06/18 The following prescriptions were given: Amoxicillin/Potassium Clav [Augmentin 875-125 Tablet] 1 ea PO BID #4 tab Oxycodone HCl/Acetaminophen [Percocet 5/325] 1 - 2 tablet PO Q4H PRN PRN 3 Days #25 tablet PRN Reason: Pain Primary Care Physician: Genna Sheppard DO [Primary Care Provider] - Please follow up with your Primary Care Physician in: 1 week Test Results: Test results from this visit will be discussed in further detail at your follow- up appointment, if applicable. Please Follow Up With: Magdi Mackay MD - After 5:00/weekends call any concerns When: Call the office for a follow-up appointment in 2 weeks. Proposed Discharge Date: 03/06/18
[2018-03-06 11:04] VITALS: PULSE 64
--- NOTE | 2018-03-06 13:57 | PCM.DC.SUM ---
<Ab Smith - Last Filed: 03/06/18 13:57> Discharge Date and Diagnosis Date of Admission: 03/01/18 Date of Discharge: 03/06/18 - Primary Discharge Diagnosis Acute cholecystitis, choledocholithiasis, possible cholangitis status post lap cholecystectomy Hypertension Mas Anxiety and depression - Secondary Discharge Diagnosis Chronic Problems Depression (Chronic) Anxiety (Chronic) Hyperlipidemia (Chronic) Hypertension (Chronic) Hospital Course and Treatment Imaging Results: RAD/Chest 1 View (Portable) IMPRESSION: No acute cardiopulmonary disease however, possible left hilar mass. Recommend CT chest to further evaluate CT/Abdomen/Pelvis WITH Contrast IMPRESSION: Grossly unremarkable gallbladder on CT. Mild fatty steatosis of the liver. Unremarkable appendix. Nonenhancing renal cysts. CT/CTA Chest W/WO Contrast IMPRESSION: Normal CTA chest examination, without a demonstrated pulmonary embolism or arterial dissection. Stress Test: Conclusion: Normal pharmacologic myocardial perfusion stress test. Preserved ejection fraction. US/Gallbladder IMPRESSION: Gallbladder sludge with gallbladder wall thickening. No pericholecystic fluid or gallstones. The environmental sampling technician reports a positive sonographic Valle's sign. These findings are equivocal for acute cholecystitis and correlation with patient's clinical symptomatology is recommended. If indicated, a nuclear medicine hepatobiliary study can be performed. Fatty liver. Right renal cysts. RAD/Cholangiogram/ O R,Initial IMPRESSION: Unremarkable intraoperative cholangiogram. Consultations: General surgery-[facility] Operations: cholecystecomy Procedures: Stress test Summary of Care Provided: Physical exam on day of discharge: General: Resting comfortably NAD Psych: A/Ox3 normal affect HEENT: PEARRLA AT NC Neck: Supple NT CV: RRR no m/t/r/g/h Resp: CTA Abd: [id number] Soft NT no guarding or rigidity Ext: DP2+= no edema Skin: W/D normal turgor Lymph/Heme: No active bleeding or adenopathy Neuro: CN2-12 intact Hospital course: The patient is a 57 year old M with a history of hypertension, anxiety, depression, who presented to the emergency room with chest pain that woke him from sleep on the morning of presentation described as retrosternal chest pain, sharp, 9 out of 10, nonradiating, with some shortness of breath, which she later described as a right upper quadrant pain. He has some leukocytosis on presentation in the ER, EKG with sinus tach, negative troponin, chest x-ray only significant for a questionable left hilar mass. He underwent a CT of the chest which did not demonstrate a PE. He had a CT of the abdomen which did not show any acute changes as well. He had a somewhat elevated lactic acid. He was admitted to the PCU with concern for chest pain. He underwent a stress test the following day which was negative. As he also described right upper quadrant pain he underwent an ultrasound of the gallbladder which was positive. His liver functions became abnormal after the first day with an elevated total bili, increased AST and ALT. He did have fatty liver changes on ultrasound and may have underlying Mas. General surgery was consulted. He underwent a laparoscopic cholecystectomy which was succesful on March 03, 2018. He was also placed on Zosyn as there was concern for developing cholangitis. His blood pressure was poorly controlled, and he was started on Coreg, losartan, and amlodipine. Per surgery recommendation he was transitioned to oral Augmentin for discharge. He was advised with his poorly controlled blood pressures to check his blood pressure daily and follow-up with his PCP in a week for further adjustments as needed. Please also follow-up with your surgeon as directed. He was discharged home in stable condition. This patient was seen by Ab Smith PA-C under the supervision of Doctor Ahuja. [] Discharge Diet: No Restrictions Discharge Activity: Return to Normal Activity, May not drive while taking narcotic pain medications., - - as directed by surgery May shower in (days): 0 Call your doctor if your incision/area has: Continuous Slow Oozing, Sudden Increased Bleeding, Increased Pain/ Swelling, Increased Redness, Foul Smelling Discharge, Swelling at the incision site Call your doctor if you observe: Fever of 101 or Higher Home Medications: Medications to take at Discharge Atorvastatin Calcium [Lipitor] 20 mg PO DAILY 02/02/17 Risperidone [Risperdal] 0.25 mg PO BID 02/02/17 Venlafaxine XR [Effexor Xr] 225 mg PO DAILY 02/02/17 Acetaminophen [Tylenol Tablet] 650 mg PO Q6H PRN PRN tablet 03/06/18 Amlodipine [Norvasc] 10 mg PO DAILY #30 tab 03/06/18 Amoxicillin/Potassium Clav [Augmentin 875-125 Tablet] 1 ea PO BID #4 tab 03/06/18 Carvedilol [Coreg (Beta Ulisses)] 12.5 mg PO BID #60 tab 03/06/18 Docusate Sodium [Colace] 100 mg PO BID capsule 03/06/18 Losartan Potassium [Cozaar] 100 mg PO DAILY #30 tab 03/06/18 Magnesium Hydroxide [Milk Of Magnesia] 30 ml PO DAILY PRN udc 03/06/18 Oxycodone HCl/Acetaminophen [Percocet 5/325] 1 - 2 tablet PO Q4H PRN PRN 3 Days #25 tablet 03/06/18 Oxycodone [Oxyir] 5 - 10 mg PO Q4H PRN PRN tablet 03/06/18 Following Prescrptions Were Given to Patient: Amlodipine [Norvasc] 10 mg PO DAILY #30 tab Amoxicillin/Potassium Clav [Augmentin 875-125 Tablet] 1 ea PO BID #4 tab Carvedilol [Coreg (Beta Ulisses)] 12.5 mg PO BID #60 tab Losartan Potassium [Cozaar] 100 mg PO DAILY #30 tab Oxycodone HCl/Acetaminophen [Percocet 5/325] 1 - 2 tablet PO Q4H PRN PRN 3 Days #25 tablet PRN Reason: Pain Primary Care Physician: Genna Sheppard DO [Primary Care Provider] - Please follow up with your Primary Care Physician in: 1 week Please Follow Up With: Magdi Mackay MD - After 5:00/weekends call [phone] any concerns When: Call the office for a follow-up appointment in 2 weeks. Additional Instructions: Percocet may cause constipation. Okay to take ibuprofen with the Percocet however do not take Tylenol as Tylenol is already in the Percocet. Make sure he take all pain meds with food. Recommend stool softener i.e. Colace twice daily until having bowel function okay to go to once daily. If not having any bowel function may take MiraLAX a few doses throughout the day. If no results from the MiraLAX and recommend taking half a bottle of magnesium citrate the following day and if no results in 6 hours drink the remaining half the bottle. Disposition: Home Minutes spent on discharge:: 35 Patient Condition:: Stable Medical Necessity - Tobacco Use Smoking Status: Former smoker Meaningful Use Info Meaningful Use Diagnoses (Choose all that apply): None applicable <Padmini Ahuja - Last Filed: 03/06/18 16:34> Discharge Date and Diagnosis - Secondary Discharge Diagnosis Chronic Problems Depression (Chronic) Anxiety (Chronic) Hyperlipidemia (Chronic) Hypertension (Chronic) Hospital Course and Treatment Summary of Care Provided: The patient is a 57 year old M [] Code Visit Inpatient E&M: 11230 Disch Hosp
--- NOTE | 2018-03-06 14:07 | DS.PCM_ITS ---
<Ab Smith - Last Filed: 03/06/18 13:57> Discharge Date and Diagnosis Date of Admission: 03/01/18 Date of Discharge: 03/06/18 - Primary Discharge Diagnosis Acute cholecystitis, choledocholithiasis, possible cholangitis status post lap cholecystectomy Hypertension Mas Anxiety and depression - Secondary Discharge Diagnosis Chronic Problems Depression (Chronic) Anxiety (Chronic) Hyperlipidemia (Chronic) Hypertension (Chronic) Hospital Course and Treatment Imaging Results: RAD/Chest 1 View (Portable) IMPRESSION: No acute cardiopulmonary disease however, possible left hilar mass. Recommend CT chest to further evaluate CT/Abdomen/Pelvis WITH Contrast IMPRESSION: Grossly unremarkable gallbladder on CT. Mild fatty steatosis of the liver. Unremarkable appendix. Nonenhancing renal cysts. CT/CTA Chest W/WO Contrast IMPRESSION: Normal CTA chest examination, without a demonstrated pulmonary embolism or arterial dissection. Stress Test: Conclusion: Normal pharmacologic myocardial perfusion stress test. Preserved ejection fraction. US/Gallbladder IMPRESSION: Gallbladder sludge with gallbladder wall thickening. No pericholecystic fluid or gallstones. The computer systems analyst reports a positive sonographic Valle's sign. These findings are equivocal for acute cholecystitis and correlation with patient's clinical symptomatology is recommended. If indicated, a nuclear medicine hepatobiliary study can be performed. Fatty liver. Right renal cysts. RAD/Cholangiogram/ O R,Initial IMPRESSION: Unremarkable intraoperative cholangiogram. Consultations: General surgery-[facility] Operations: cholecystecomy Procedures: Stress test Summary of Care Provided: Physical exam on day of discharge: General: Resting comfortably NAD Psych: A/Ox3 normal affect HEENT: PEARRLA AT NC Neck: Supple NT CV: RRR no m/t/r/g/h Resp: CTA Abd: [id number] Soft NT no guarding or rigidity Ext: DP2+= no edema Skin: W/D normal turgor Lymph/Heme: No active bleeding or adenopathy Neuro: CN2-12 intact Hospital course: The patient is a 57 year old M with a history of hypertension, anxiety, depression, who presented to the emergency room with chest pain that woke him from sleep on the morning of presentation described as retrosternal chest pain, sharp, 9 out of 10, nonradiating, with some shortness of breath, which she later described as a right upper quadrant pain. He has some leukocytosis on presentation in the ER, EKG with sinus tach, negative troponin, chest x-ray only significant for a questionable left hilar mass. He underwent a CT of the chest which did not demonstrate a PE. He had a CT of the abdomen which did not show any acute changes as well. He had a somewhat elevated lactic acid. He was admitted to the PCU with concern for chest pain. He underwent a stress test the following day which was negative. As he also described right upper quadrant pain he underwent an ultrasound of the gallbladder which was positive. His liver functions became abnormal after the first day with an elevated total bili, increased AST and ALT. He did have fatty liver changes on ultrasound and may have underlying Mas. General surgery was consulted. He underwent a laparoscopic cholecystectomy which was succesful on March 03, 2018. He was also placed on Zosyn as there was concern for developing cholangitis. His blood pressure was poorly controlled, and he was started on Coreg, losartan , and amlodipine. Per surgery recommendation he was transitioned to oral Augmentin for discharge. He was advised with his poorly controlled blood pressures to check his blood pressure daily and follow-up with his PCP in a week for further adjustments as needed. Please also follow-up with your surgeon as directed. He was discharged home in stable condition. This patient was seen by Ab Smith PA-C under the supervision of Doctor Ahuja. [] Discharge Diet: No Restrictions Discharge Activity: Return to Normal Activity, May not drive while taking narcotic pain medications., - - as directed by surgery May shower in (days): 0 Call your doctor if your incision/area has: Continuous Slow Oozing, Sudden Increased Bleeding, Increased Pain/ Swelling, Increased Redness, Foul Smelling Discharge, Swelling at the incision site Call your doctor if you observe: Fever of 101 or Higher Home Medications: Medications to take at Discharge Atorvastatin Calcium [Lipitor] 20 mg PO DAILY 02/02/17 Risperidone [Risperdal] 0.25 mg PO BID 02/02/17 Venlafaxine XR [Effexor Xr] 225 mg PO DAILY 02/02/17 Acetaminophen [Tylenol Tablet] 650 mg PO Q6H PRN PRN tablet 03/06/18 Amlodipine [Norvasc] 10 mg PO DAILY #30 tab 03/06/18 Amoxicillin/Potassium Clav [Augmentin 875-125 Tablet] 1 ea PO BID #4 tab Carvedilol [Coreg (Beta Ulisses)] 12.5 mg PO BID #60 tab 03/06/18 Docusate Sodium [Colace] 100 mg PO BID capsule 03/06/18 Losartan Potassium [Cozaar] 100 mg PO DAILY #30 tab 03/06/18 Magnesium Hydroxide [Milk Of Magnesia] 30 ml PO DAILY PRN udc 03/06/18 Oxycodone HCl/Acetaminophen [Percocet 5/325] 1 - 2 tablet PO Q4H PRN PRN 3 Days #25 tablet 03/06/18 Oxycodone [Oxyir] 5 - 10 mg PO Q4H PRN PRN tablet 03/06/18 Following Prescrptions Were Given to Patient: Amlodipine [Norvasc] 10 mg PO DAILY #30 tab Amoxicillin/Potassium Clav [Augmentin 875-125 Tablet] 1 ea PO BID #4 tab Carvedilol [Coreg (Beta Ulisses)] 12.5 mg PO BID #60 tab Losartan Potassium [Cozaar] 100 mg PO DAILY #30 tab Oxycodone HCl/Acetaminophen [Percocet 5/325] 1 - 2 tablet PO Q4H PRN PRN 3 Days #25 tablet PRN Reason: Pain Primary Care Physician: Genna Sheppard DO [Primary Care Provider] - Please follow up with your Primary Care Physician in: 1 week Please Follow Up With: Magdi Mackay MD - After 5:00/weekends call any concerns When: Call the office for a follow-up appointment in 2 weeks. Additional Instructions: Percocet may cause constipation. Okay to take ibuprofen with the Percocet however do not take Tylenol as Tylenol is already in the Percocet. Make sure he take all pain meds with food. Recommend stool softener i.e. Colace twice daily until having bowel function okay to go to once daily. If not having any bowel function may take MiraLAX a few doses throughout the day. If no results from the MiraLAX and recommend taking half a bottle of magnesium citrate the following day and if no results in 6 hours drink the remaining half the bottle. Disposition: Home Minutes spent on discharge:: 35 Patient Condition:: Stable Medical Necessity - Tobacco Use Smoking Status: Former smoker Meaningful Use Info Meaningful Use Diagnoses (Choose all that apply): None applicable <Padmini Ahuja - Last Filed: 03/06/18 16:34> Discharge Date and Diagnosis - Secondary Discharge Diagnosis Chronic Problems Depression (Chronic) Anxiety (Chronic) Hyperlipidemia (Chronic) Hypertension (Chronic) Hospital Course and Treatment Summary of Care Provided: The patient is a 57 year old M [] Code Visit Inpatient E&M: 49683 Disch Hosp
== END 2018-03-06 12:22 | disposition home or self-care (01) | DRG 419 ==
LOC: ED 17:27 → PCU 19:39
PROVIDERS: Student in an Organized Health Care Education/Training Program; Surgery; Admitting Provider Hospitalist; Emergency Provider Emergency Medicine; Visit Provider Internal Medicine
PROC: 0FT44ZZ Resection of Gallbladder, Percutaneous Endoscopic Approach (ICD-10-PCS; CPT 47610; principal; 2018-03-03 12:30)
DX: K80.42 Calculus of bile duct with acute cholecystitis without obstruction (principal); F32.9 Major depressive disorder, single episode, unspecified; F41.9 Anxiety disorder, unspecified; Z79.899 Other long term (current) drug therapy; I10 Essential (primary) hypertension; E78.5 Hyperlipidemia, unspecified; K75.81 Nonalcoholic steatohepatitis (NASH); Z87.891 Personal history of nicotine dependence
CPT/HCPCS: 36415; 71045; 71275; 74177; 74300; 76000; 76705; 78452; 80048; 80053; 80076; 81001; 83605; 83690; 84484; 85025; 85379; 85610; 85730; 88304; 93005; 93017; 99284; A9500; J7030; J7120; Q9967; A4216; J2405; J2785; J3490

== ENCOUNTER → 2018-03-17 07:55 | Outpatient (CLI) | payer BC, SELFPAY ==
[2018-03-17 10:17] LABS: ALB/GLOB Ratio 0.9 RATIO (0.9-2.4); AST(SGOT) 30 U/L (15-37); Alanine Aminotransfer ALT/SGPT 81 U/L (16-61); Albumin, Serum 3.5 g/dL (3.2-5.0); Alkaline Phosphatase 85 U/L (45-117); Anion Gap 8 (5-15); BUN 17 mg/dL (7-18); BUN/Creat Ratio 11.9 RATIO (10-20); Calcium,Total 8.8 mg/dL (8.5-10.1); Chloride 107 mmol/L (98-107); Creatinine, Serum 1.43 mg/dL (0.70-1.30); EST Glomerular Filtration Rate 54 mL/min (>60); Est Glom Filt Rate - Afr Amer 66 mL/min (>60); Globulin 3.8 g/dL (2.2-4.2); Glucose 95 mg/dL (74-106); Protein, Total 7.3 g/dL (6.4-8.2); Sodium Level 144 mmol/L (136-145)
== END ==
PROVIDERS: Family Provider Family Medicine; PCP Family Medicine; Visit Provider Nurse Practitioner Family
DX: I10 Essential (primary) hypertension (principal)
CPT/HCPCS: 36415; 80053

== ENCOUNTER 2018-04-03 14:49 | Emergency (ER) | payer BC, SELFPAY ==
[2018-04-03] VITALS (8 sets, daily range): BP systolic 130–152; BP diastolic 79–105; PULSE 101–116; RESP 16–28; TEMP 36.1; O2SAT 86–98; BMI 29.0
--- NOTE | 2018-04-03 15:30 | ED.DCSUM_ITS ---
- ER Visit Summary Date of Service: 04/03/18 Chief Complaint: Anaphylaxis History of Present Illness: The patient is a 57 M who was given epinephrine ?2 via EMS for attention and difficulty breathing and decreased pulse ox after 1 single bee sting prior to arrival. He has improved, no longer feels short of breath, has no chest pain, he does still feel slightly weak. Physical Examination: Not appear in acute distress. Moist mucous membranes, no obvious facial deformity No C-spine tenderness supple neck. Regular rate and rhythm without any obvious murmurs Clear lungs bilaterally speaking in full sentences without any obvious respiratory distress Abdomen soft and nontender no guarding or rebound Moves all extremities without any difficulty or pain. Skin does not show any obvious rashes or lesions, no trauma. There is one single localized reaction on his left inner thigh region. Alert oriented ?3 with no gross focal deficit Emergency Department Course and Treatment: Patient received epinephrine and Benadryl via EMS, Solu-Medrol and Pepcid were given in the emergency department. He will be monitored for a total of 6 hours before his discharge. Discharge stable condition Impression: Anaphylactic reaction secondary to hymenoptera ventilation This note was generated with [employer] dictation software. It may contain incorrect words, spelling, and punctuation that were not noted in review of the chart prior to signing ED Disposition - Plan for ED Patient: Disposition: Home or Assisted Living Chief Complaint: Alt LOC Instructions: Discharge Instructions for Anaphylactic Shock Prescriptions: Epinephrine [Epi Pen] 0.3 mg IM X1 #2 syringe Referrals: Dominic Bolton DO [Primary Care Provider] -
[2018-04-03] MEDS: MethylPREDNISolone 125 MG/2 ML Vial IV (15:47)
[2018-04-03] MEDS: Ibuprofen 600 MG Tablet PO (17:09)
== END 2018-04-03 21:07 | disposition home or self-care (01) ==
PROVIDERS: Emergency Provider Emergency Medicine; Family Provider Family Medicine; PCP Family Medicine
DX: T63.441A Toxic effect of venom of bees, accidental (unintentional), initial encounter (principal); T78.2XXA Anaphylactic shock, unspecified, initial encounter; X58.XXXA Exposure to other specified factors, initial encounter; I10 Essential (primary) hypertension; E78.00 Pure hypercholesterolemia, unspecified; Z90.49 Acquired absence of other specified parts of digestive tract; Z79.899 Other long term (current) drug therapy; Z87.891 Personal history of nicotine dependence
CPT/HCPCS: 96374; 96375; 99285; J7030; A4216; J3490

== ENCOUNTER → 2018-05-06 07:13 | Outpatient (CLI) | payer BC, SELFPAY ==
--- NOTE | 2018-05-06 07:22 | RAD_ITS ---
STUDY: X-RAY - ABDOMEN/PELVIS REASON FOR EXAM: Male, 58 years old. Left-sided posterior pain. TECHNIQUE: 2 frontal images of the abdomen. COMPARISON: February 22, 2017. FINDINGS: There is an unremarkable bowel gas pattern. There is no demonstrated free abdominal air. Within the expected region of the left kidney there are punctate calcific densities measuring up to 4 mm. There are postsurgical changes again noted within the left pelvis.. Normal visualized osseous structures. RAD/Abdomen Single View IMPRESSION: Left renal calculi. Electronically Signed: Maryanne Goldstein MD at 20:20 EDT Tel , Service support ,
[2018-05-06 08:37] LABS: ALB/GLOB Ratio 0.9 RATIO (0.9-2.4); AST(SGOT) 18 U/L (15-37); Alanine Aminotransfer ALT/SGPT 35 U/L (16-61); Albumin, Serum 3.5 g/dL (3.2-5.0); Alkaline Phosphatase 61 U/L (45-117); Anion Gap 9 (5-15); BUN 15 mg/dL (7-18); BUN/Creat Ratio 7.5 RATIO (10-20); Calcium,Total 8.9 mg/dL (8.5-10.1); Chloride 107 mmol/L (98-107); Cholesterol 167 mg/dL (200); EST Glomerular Filtration Rate 37 mL/min (>60); Est Glom Filt Rate - Afr Amer 45 mL/min (>60); Globulin 3.7 g/dL (2.2-4.2); Glucose 85 mg/dL (74-106); High Density Lipoprotein 41 mg/dL; PSA,Total - Annual Screen 1.02 ng/mL (0.00-4.00); Potassium 3.7 mmol/L (3.5-5.1); Protein, Total 7.2 g/dL (6.4-8.2); Sodium Level 143 mmol/L (136-145); Triglycerides 128 mg/dL; Very Low Density Lipoprotein 26 mg/dL (5-40)
== END ==
PROVIDERS: Family Provider Family Medicine; PCP Family Medicine; Visit Provider Urology
DX: N20.0 Calculus of kidney (principal); Z12.5 Encounter for screening for malignant neoplasm of prostate; E78.5 Hyperlipidemia, unspecified
CPT/HCPCS: 74018; 80053; 80061; 84153; G0103

== ENCOUNTER → 2018-12-28 | Outpatient (CLI) | payer BC, SELFPAY ==
[2018-12-21 13:36] VITALS: BMI 29.8
--- NOTE | 2018-12-28 12:36 | MRI_ITS ---
STUDY: MRI CERVICAL SPINE WITHOUT CONTRAST REASON FOR EXAM: Male, 58 years old. Neck pain radiation into the left arm and fingers for one month. TECHNIQUE: Standardized fat and water weighted pulse sequences were obtained in the sagittal and axial planes. COMPARISON: None FINDINGS: Normal foramen magnum and brainstem-cervical cord junction. Normal craniovertebral junction. Normal anterior atlantoaxial articulation. Normal odontoid process. Normal cervical lordosis. The vertebral bodies are generally normal height and alignment. C2-3: Diffuse severe focal right central disc protrusion osteophyte complex. There is severe right-sided neural foraminal narrowing with probable nerve impingement. The left neural foramen is patent. There is no significant central acquired canal stenosis though this protrusion does appear to cause some mass effect on the right paramedian ventral spinal cord at this level. C3-4: There is a large broad central disc protrusion with moderately severe acquired canal stenosis. There is severe bilateral neural foraminal narrowing, right greater than left with probable nerve root impingement. There is uncovertebral facet joint arthropathy. C4-5: There is a moderately large broad central disc extrusion with moderate acquired canal stenosis. There is severe right-sided neural foraminal narrowing, right greater than left with probable bilateral nerve impingement. There is uncovertebral facet joint arthropathy. C5-6: There is a moderately large broad central disc protrusion. There is severe bilateral neural foraminal narrowing with apparent nerve impingement. There is moderate acquired canal stenosis and questionable impingement of spinal cord at this level. There is uncovertebral and facet joint arthropathy. C6-7: There is a annular disc bulge with a focal left central disc protrusion. There is moderately severe acquired canal stenosis. There is severe bilateral neural foraminal narrowing with potential nerve impingement. There is uncovertebral and facet joint arthropathy. C7-T1: Normal endplates. Normal disc height, signal and morphology. Normal central canal and intervertebral neural foramina. Normal cervical cord. There is no demonstrated cervical cord syrinx cavity. Normal visualized soft tissue structures. There appear to be left maxillary mucous retention cysts. MRI/Spine Cervical (Routine) IMPRESSION: 1. Moderately severe multilevel degenerative disc disease and degenerative arthropathy of the cervical spine with acquired canal stenosis, neural foraminal narrowing and probable nerve impingement, as described. 2. 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 Electronically Signed: Aydee Webb MD at 10:35 EDT , Service support ,
--- NOTE | 2018-12-28 13:21 | RAD_ITS ---
STUDY: X-RAY CHEST REASON FOR EXAM: Male, 58 years old. Left upper chest pain with inspiration TECHNIQUE: PA and lateral views of the chest. COMPARISON: 03/01/2018 FINDINGS: The lungs are clear and expanded. There is no demonstrated pleural abnormality. Normal size heart. Normal mediastinum and blanca. Normal visualized pulmonary arteries. There is atherosclerotic tortuosity of the aortic arch and descending thoracic aorta. Normal visualized thoracic spine. Stable operative changes of the left humeral head. There is no demonstrated abnormality of the visualized soft tissue structures of the upper abdomen. RAD/Chest PA and Lateral IMPRESSION: 1. No acute cardiopulmonary process. Stable exam. Electronically Signed: Allan Yepez MD at 13:26 EDT , Service support ,
== END | disposition home or self-care (01) ==
PROVIDERS: Family Provider Family Medicine; PCP Family Medicine; Referring Provider Family Medicine; Visit Provider Family Medicine
DX: R07.9 Chest pain, unspecified (principal); M54.12 Radiculopathy, cervical region
CPT/HCPCS: 71046; 72141

== ENCOUNTER → 2019-10-27 13:31 | Outpatient (CLI) | payer BC, SELFPAY ==
[2019-10-27 13:09] VITALS: BMI 29.8
[2019-10-27 13:33] LABS: Mucous, Urine 0 SEEN /hpf (<or=2+); White Blood Cells 0 SEEN /hpf (0-5)
[2019-10-27 15:20] LABS: Color, Urine Yellow (Yellow); Glucose, Dipstick Normal (Normal); Ketone-Dipstick Negative (Negative); Leukocyte Esterase-Dipstick Negative /ul (Negative); Nitrite-Dipstick Negative (Negative); Occult Blood-Urine 150 /ul (Negative); Protein-Dipstick Negative (Negative); Specific Gravity, Urine 1.015 (1.002-1.030); Urine Bilirubin Dipstick Negative (Negative); Urine Clarity Sl. Cloudy (Clear); Urine Urobilinogen Normal (Normal)
[2019-10-27 15:27] LABS: Bacteria RARE /hpf (None Seen); Red Blood Cells-Urine 0-5 SEEN /hpf (0-5); Squamous Epithelial Cells - UA 0-5 SEEN /hpf (0-5)
== END ==
PROVIDERS: PCP Family Medicine; Referring Provider Nurse Practitioner Family; Visit Provider Nurse Practitioner Family
DX: N30.00 Acute cystitis without hematuria (principal)
CPT/HCPCS: 81001; 87086

== ENCOUNTER → 2020-02-07 09:29 | Outpatient (CLI) | payer BC, SELFPAY ==
[2020-02-07 09:11] VITALS: BMI 29.8
[2020-02-07 13:07] LABS: ALB/GLOB Ratio 1.1 RATIO (0.9-2.4); AST(SGOT) 24 U/L (15-37); Alanine Aminotransfer ALT/SGPT 38 U/L (16-61); Albumin, Serum 3.6 g/dL (3.2-5.0); Alkaline Phosphatase 48 U/L (45-117); Anion Gap 7 (5-15); BUN 11 mg/dL (7-18); BUN/Creat Ratio 7.1 RATIO (10-20); Calcium,Total 8.7 mg/dL (8.5-10.1); Chloride 106 mmol/L (98-107); Cholesterol 155 mg/dL (200); Creatinine, Serum 1.55 mg/dL (0.70-1.30); EST Glomerular Filtration Rate 49 mL/min (>60); Est Glom Filt Rate - Afr Amer 60 mL/min (>60); Globulin 3.3 g/dL (2.2-4.2); Glucose 137 mg/dL (74-106); High Density Lipoprotein 34 mg/dL; PSA,Total - Annual Screen 1.13 ng/mL (0.00-4.00); Potassium 3.6 mmol/L (3.5-5.1); Protein, Total 6.9 g/dL (6.4-8.2); Sodium Level 142 mmol/L (136-145); Triglycerides 210 mg/dL; Very Low Density Lipoprotein 42 mg/dL (5-40)
== END ==
PROVIDERS: PCP Family Medicine; Referring Provider Family Medicine; Visit Provider Family Medicine
DX: I10 Essential (primary) hypertension (principal); E78.2 Mixed hyperlipidemia; R39.11 Hesitancy of micturition
CPT/HCPCS: 36415; 80053; 80061; 84153; G0103

== ENCOUNTER → 2020-08-08 08:28 | Outpatient (CLI) | payer BC, SELFPAY ==
[2020-08-07 16:29] VITALS: BMI 31.7
[2020-08-08 12:50] LABS: Anion Gap 7 (5-15); BUN 16 mg/dL (7-18); BUN/Creat Ratio 10.4 RATIO (10-20); Calcium,Total 9.2 mg/dL (8.5-10.1); Chloride 105 mmol/L (98-107); Creatinine, Serum 1.54 mg/dL (0.70-1.30); EST Glomerular Filtration Rate 50 mL/min (>60); Est Glom Filt Rate - Afr Amer 60 mL/min (>60); Glucose 130 mg/dL (74-106); Potassium 3.5 mmol/L (3.5-5.1); Sodium Level 141 mmol/L (136-145)
[2020-08-08 12:54] LABS: Hemoglobin A1c 6.1 % (3.8-5.6)
== END ==
PROVIDERS: PCP Family Medicine; Referring Provider Family Medicine; Visit Provider Family Medicine
DX: I10 Essential (primary) hypertension (principal)
CPT/HCPCS: 36415; 80048; 83036

== ENCOUNTER → 2021-06-24 13:00 | Outpatient (CLI) | payer BC, SELFPAY | PROVIDERS: PCP Family Medicine; Visit Provider Family Medicine | DX: G47.30 Sleep apnea, unspecified (principal) | CPT/HCPCS: 95806 ==

== ENCOUNTER → 2021-08-11 09:12 | Outpatient (CLI) | payer BC, SELFPAY | PROVIDERS: PCP Family Medicine; Visit Provider Nurse Practitioner Acute Care | DX: Z46.89 Encounter for fitting and adjustment of other specified devices (principal) ==

== ENCOUNTER → 2022-01-29 | Outpatient (CLI) | payer BC, SELFPAY ==
[2022-01-29 12:57] LABS: Cholesterol 161 mg/dL (200); High Density Lipoprotein 38 mg/dL; PSA,Total- Diagnostic 1.29 ng/mL (0.0-4.0); Triglycerides 210 mg/dL; Very Low Density Lipoprotein 42 mg/dL (5-40)
== END | disposition home or self-care (01) ==
LOC: BIMLAB 10:34
PROVIDERS: PCP Family Medicine; Visit Provider Family Medicine
DX: R35.1 Nocturia (principal)
CPT/HCPCS: 36415; 80061; 84153

== ENCOUNTER → 2022-04-09 | Outpatient (CLI) | payer BC, SELFPAY | END | disposition home or self-care (01) | LOC: LABSPEC 09:58 | PROVIDERS: PCP Family Medicine; Referring Provider Physician Assistant; Visit Provider Physician Assistant | DX: J02.9 Acute pharyngitis, unspecified (principal) | CPT/HCPCS: 87635; U0003; U0005 ==

== ENCOUNTER → 2022-04-17 | Outpatient (CLI) | payer BC, SELFPAY | END | disposition home or self-care (01) | LOC: SL 10:15 | PROVIDERS: PCP Family Medicine; Visit Provider Nurse Practitioner Acute Care | DX: G47.30 Sleep apnea, unspecified (principal) | CPT/HCPCS: 95806 ==

== ENCOUNTER → 2023-04-28 | Outpatient (CLI) | payer BC, SELFPAY ==
[2023-04-28 17:19] LABS: ALB/GLOB Ratio 1.2 RATIO (0.9-2.4); AST(SGOT) 19 U/L (15-37); Alanine Aminotransfer ALT/SGPT 29 U/L (16-61); Albumin, Serum 3.8 g/dL (3.2-5.0); Alkaline Phosphatase 56 U/L (45-117); Anion Gap 6 (5-15); BUN 13 mg/dL (7-18); BUN/Creat Ratio 9.6 RATIO (10-20); Calcium,Total 9.1 mg/dL (8.5-10.1); Chloride 105 mmol/L (98-107); Cholesterol 150 mg/dL (200); Creatinine, Serum 1.35 mg/dL (0.70-1.30); EST Glomerular Filtration Rate 57 mL/min (>60); Est Glom Filt Rate - Afr Amer 69 mL/min (>60); Globulin 3.3 g/dL (2.2-4.2); Glucose 97 mg/dL (74-106); High Density Lipoprotein 43 mg/dL; Potassium 3.5 mmol/L (3.5-5.1); Protein, Total 7.1 g/dL (6.4-8.2); Sodium Level 139 mmol/L (136-145); Triglycerides 254 mg/dL; Very Low Density Lipoprotein 51 mg/dL (5-40)
== END | disposition home or self-care (01) ==
LOC: BIMLAB 15:51
PROVIDERS: PCP Family Medicine; Visit Provider Family Medicine
DX: I10 Essential (primary) hypertension (principal); E78.5 Hyperlipidemia, unspecified
CPT/HCPCS: 36415; 80053; 80061

== ENCOUNTER 2023-06-28 07:49 | Day surgery (SDC) | payer BC, SELFPAY ==
[2023-06-28] VITALS (7 sets, daily range): BP systolic 95–135; BP diastolic 55–96; PULSE 62–80; RESP 16–18; TEMP 36.3–36.6; O2SAT 95–100; BMI 28.8
--- NOTE | 2023-06-28 08:04 | H&P.OPEN ---
HPI - General General Date of Service: 06/28/23 HPI Narrative KATI MCCOY, is a 63 M who presents for screening colonoscopy. Patient had a colonoscopy about 10 years ago negative per patient?patient that was done here. I do not see this record in our current EMR. Patient denies any chronic abdominal pain/nausea/vomiting/reflux. Patient has bowel movements daily denies any blood. Patient denies any family history of colon cancer. [facility] Medical History (Updated 06/23/23 @ 08:51 by Sunshine Sanders) Former smoker Gastric reflux Herniated disc, cervical History of kidney stones History of rotator cuff tear History of stress test Hx of pilonidal cyst Hypertension Kidney stones Sleep apnea Wears contact lenses Wears glasses Home Medications risperidone 0.25 mg tablet 0.25 mg PO TID #90 tabs 08/19/18 [Rx Last Taken 06/28/23] epinephrine 0.3 mg/0.3 mL injection, auto-injector (EpiPen 2-Brett) 0.3 mg (0.3 mL) IM ONCE #4 ea 03/05/21 [Rx Last Taken Unknown] Oral appliance #1 ea 09/05/21 [Rx Last Taken Unknown] loratadine 5 mg-pseudoephedrine ER 120 mg tablet,extended release,12hr (Claritin-D 12 Hour) 1 tab PO Q12H PRN allergy symptoms 12/18/22 [History Last Taken Unknown] atorvastatin 20 mg tablet See Rx Instructions .Route .COMPLEX #90 tabs 04/28/23 [Rx Last Taken Unknown] losartan 100 mg-hydrochlorothiazide 12.5 mg tablet See Rx Instructions .Route .COMPLEX #90 tabs 04/28/23 [Rx Last Taken Unknown] tramadol 50 mg tablet 50 mg PO TID PRN pain #30 tabs 04/28/23 [Rx Last Taken Unknown] venlafaxine 150 mg capsule,extended release 24 hr 150 mg PO DAILY 06/23/23 [History Last Taken 06/28/23] venlafaxine 75 mg capsule,extended release 24 hr 75 mg PO DAILY 06/23/23 [History Last Taken 06/28/23] Allergy/AdvReac Type Severity Reaction Status Date / Time bee venom protein (honey bee) Allergy Severe Anaphylaxis Verified 06/23/23 08:42 [bee stings] Family History Mother Diabetes Surgical History (Updated 05/14/23 @ 12:49 by Harleen Dennis) History of cholecystectomy History of hernia repair Hx of colonoscopy Social History Smoking Status: Former smoker how long ago did patient quit smokin alcohol intake: current alcohol intake frequency: holidays/special occasions only substance use type: does not use what type of physical activity do you participate in: none Past Medical/Surgical History Planned Operation Planned Operative Procedure/s: COLONOSCOPY-OA S.O.S: No Previous Hospitalizations/Surgeries HX Hospitalizations: No HX of Surgeries: ROTATOR CUFF SURGERY X2 INGUINAL HERNIA REPAIR BILAT VASECTOMY Any Problems With Anesthesia: No You/Your Family Experience Fever (Hyperthermia) With Anes: No Cholinesterase deficiency: No Cardiovascular Hx Chest Pain within Last 2 months: Yes Hx of Irregular Heartbeat and/or Afib: No Hx Heart Attack: No Hx Congestive Heart Failure: No Hx Rheumatic Fever: No Hx Hypertension: Yes (STATES CONTROLLED WITH MED) Hx Internal Defibrillator: No Hx Pacemaker: No Hx Cardiac Catheterization: No Hx Cardiac Surgery/Stents/Etc.: No Hx Stress Test: No Hx Pain in Legs when Walking/Leg Cramps: No Respiratory Chronic Cough: No HX of Shortness of Breath: No Hoarseness: No Hx Chronic Obstructive Pulmonary Disease (COPD): No Hx Asthma: No Hx Emphysema: No Hx Sleep Apnea: No Hx Respiratory Tract Infection/Cold (presently): No Do You Snore Loudly (louder than talking or can be heard): No Do You Often Feel Tired/ Fatigued/ Sleepy Dring Daytime?: No Has Anyone Observed You Stop Breathing During Sleep?: No Result (for STOP score): Negative Hx Smoking: Yes (QUIT 2006) Smoking Status: Former smoker Gastrointestinal Hx Gastroesophageal Reflux: No Hx Gastrointestinal Disorders: No Hx Gastrointestinal Bleed: No Hx Ulcer: No Hx Hiatal Hernia: No Difficulty Chewing/Swallowing: No Special diet followed at home: No Hx Unplanned Weight Loss of 20#: No HX Unplanned Weight Gain of 20#: No Neurological Hx Seizures: No HX Syncope/Blackout Spells/Unconsciousness: No Hx Transient Ischemic Attacks (TIA): No Hx Multiple Sclerosis: No Hx Parkinson's Disease: No Hx Head/Neck Injury: No Hx Headaches: No Hx Back Injury/Pain: Yes (BACK PAIN) Recent Onset of Speech Difficulty: No Restless Legs: No Does patient have nerve stimulator: No Blood Disorder Hx Leukemia: No Bleeding Tendencies: No Hx Deep Vein Thrombosis: No Hx High Cholesterol: Yes (ON MED) Blood Transmitted Disease: No Hx Hepatitis: No Hx Cirrhosis: No Hx Anemia: No Hx Blood Disorders: No Genitourinary Hx Renal Disease: No (HX STONES) Hx Dialysis: No Musculoskeletal Hx Arthritis: Yes Hx Rheumatoid Arthritis: No Hx Gout: No Recent Onset of an Orthopedic Problem: No Endocrine Hx Diabetes: No Thyroid Disease: No Hx Steroid Therapy: Yes (ORAL 11/2016) Psycho/Social Hx Substance Use: No Hx Alcohol Use: Yes (RARE) Hx Anxiety: Yes (ON MED) Hx Depression: Yes Mental Illness: No Hx Dementia: No Miscellaneous Hx Cancer: No Recent Exposure to Contagious Disease: No Hx of C-Diff: No Any Loose Teeth: No Allergies bee venom protein (honey bee) [bee stings] Allergy (Severe, Verified 06/23/23 08:42) Anaphylaxis Maternal: Family History Mother Diabetes No pertinent history Paternal: Family History Mother Diabetes No pertinent history Discharge Is Pt Admitted From a Halfway, or a Residential: No After D/C, Where Do you Plan to Go: Return Home Physical Exam Const alert, oriented x3 and no apparent distress HEENT normocephalic and head/scalp atraumatic Resp normal respiratory effort Cardio regular rate GI soft to palpation and non-tender; Negative for non-distended Palpation: Negative for guarding Extremity no clubbing, cyanosis or edema Skin no rashes or lesions noted Neuro CN's II-XII intact bilaterally Psych mental status grossly normal Assessment & Plan Assessment/Plan (1) Encounter for screening for malignant neoplasm of colon: Surgery Risks - Colonoscopy I discussed with the patient the risks of the procedure: Yes Risks Include but are not Limited To: Risks include but are not limited to: Bleeding, perforation requiring further surgery, inability to complete colonoscopy requiring barium enema.
[2023-06-28] MEDS: Lactated Ringers 1,000 ML 15 ML IV (08:10)
--- NOTE | 2023-06-28 09:09 | OP.CCLET_ITS ---
06/28/2023 Dominic Bolton Re : Colonoscopy procedure for Arun Mg Dear Dr. Bolton This procedure was performed on Wednesday, June 28, 2023. My impressions and recommendations are as follows: Impressions : - Hemorrhoids found on perianal exam. - Non-bleeding internal hemorrhoids. - Diverticulosis in the sigmoid colon and in the descending colon. - The examination was otherwise normal. - No specimens collected. Recommendations : - Discharge patient to home. - High fiber diet. - Continue present medications. - Repeat colonoscopy in 10 years for screening purposes. My findings are described in the full procedure note, which is enclosed. If I can be of further assistance, please feel free to contact me at Doctor phone number(s): , Work: . Sincerely, MD Vanessa Montilla MD 06/28/2023 9:08:46 AM This report has been signed electronically.
--- NOTE | 2023-06-28 09:09 | OP.COLON_ITS ---
Patient Name: Arun Mg Procedure Date: 06/28/2023 8:26 AM Date of : 1960 Age: 63 Procedure: Colonoscopy Indications: Screening for colorectal malignant neoplasm Providers: Vanessa Grande MD Referring MD: Dominic Bolton Medicines: Monitored Anesthesia Care Patient Profile: This is a 63 year old male. Last Colonoscopy: 10 years ago. Complications: No immediate complications. Procedure: Pre-Anesthesia Assessment: - Prior to the procedure, a History and Physical was performed, and patient medications and allergies were reviewed. The patient's tolerance of previous anesthesia was also reviewed. The risks and benefits of the procedure and the sedation options and risks were discussed with the patient. All questions were answered, and informed consent was obtained. Prior Anticoagulants: The patient has taken no anticoagulant or antiplatelet agents. ASA Grade Assessment: Per anesthesia. After reviewing the risks and benefits, the patient was deemed in satisfactory condition to undergo the procedure. After I obtained informed consent, the scope was passed under direct vision. Throughout the procedure, the patient's blood pressure, pulse, and oxygen saturations were monitored continuously. The Colonoscope was introduced through the anus and advanced to the cecum, identified by the appendiceal orifice, ileocecal valve and palpation. The colonoscopy was performed without difficulty. The patient tolerated the procedure well. The quality of the bowel preparation was good. Scope In: 8:38:38 AM Scope Withdrawal Time 0 hours 12 minutes 50 seconds Scope Out: 9:00:40 AM Total Procedure Duration Time 0 hours 22 minutes 2 seconds Findings: Hemorrhoids were found on perianal exam. Non-bleeding internal hemorrhoids were found. The hemorrhoids were Grade II (internal hemorrhoids that prolapse but reduce spontaneously). A few small-mouthed diverticula were found in the sigmoid colon and descending colon. The exam was otherwise without abnormality. Impression: - Hemorrhoids found on perianal exam. - Non-bleeding internal hemorrhoids. - Diverticulosis in the sigmoid colon and in the descending colon. - The examination was otherwise normal. - No specimens collected. Recommendation: - Discharge patient to home. - High fiber diet. - Continue present medications. - Repeat colonoscopy in 10 years for screening purposes. Procedure Code(s): --- Professional --- G0121, PT, Colorectal cancer screening; colonoscopy on individual not meeting criteria for high risk Diagnosis Code(s): --- Professional --- Z12.11, Encounter for screening for malignant neoplasm of colon K64.1, Second degree hemorrhoids K57.30, Diverticulosis of large intestine without perforation or abscess without bleeding CPT copyright 2021 [employer]. All rights reserved. The codes documented in this report are preliminary and upon associate professor of english review may be revised to meet current compliance requirements. MD Vanessa Montilla MD 06/28/2023 9:08:46 AM This report has been signed electronically. Number of Addenda: 0 Note Initiated On: 06/28/2023 8:26 AM
== END 2023-06-28 10:08 | disposition home or self-care (01) ==
LOC: EN 07:49 → AC 07:50
PROVIDERS: PCP Family Medicine; Referring Provider Family Medicine; Visit Provider Surgery
PROC: 0DJD8ZZ Inspection of Lower Intestinal Tract, Via Natural or Artificial Opening Endoscopic (ICD-10-PCS; CPT 45378; principal; 2023-06-28 08:55)
DX: Z12.11 Encounter for screening for malignant neoplasm of colon (principal); K57.30 Diverticulosis of large intestine without perforation or abscess without bleeding; Z87.891 Personal history of nicotine dependence; I10 Essential (primary) hypertension; K64.1 Second degree hemorrhoids; Z79.899 Other long term (current) drug therapy; Z90.49 Acquired absence of other specified parts of digestive tract
CPT/HCPCS: 45378; J7120; J2405

== ENCOUNTER → 2024-03-29 | Outpatient (CLI) | payer BC, SELFPAY ==
[2024-03-29 16:41] LABS: Absolute Lymphocyte Count 2.39 X10^3/uL (0.83-4.51); Absolute Neutrophil Count 3.6 X10^3/uL (2.0-7.7); Basophil# 0.06 X10^3/uL; Basophil% 0.8 % (0-1); Eosinophil# 0.17 X10^3/uL; Eosinophils% 2.4 % (0-5); Hematocrit 47.6 % (40-54); Hemoglobin 15.2 g/dL (13.0-16.5); Lymphocyte # 2.39 X10^3/ul (0.83-4.51); Lymphocyte % 33.1 % (19-41); Mean Corp Hgb Conc 31.9 g/dL (32-36); Mean Corpuscular Volume 90.8 fL (80-94); Mean Platelet Vol. 10.2 fl (6.2-12.0); Monocyte# 0.92 X10^3/uL; Monocyte% 12.7 % (0-10); NRBC Flagged by Analyzer 0 % (0-5); Neutrophil # 3.64 X10^3/uL (2.7-7.7); Neutrophil % 50.4 % (47-70); Platelet Count 261 K/mm3 (150-450); RBC Distribution Width CV 13.9 % (11.6-14.6); RBC Distribution Width SD 47.1 fl (35.1-43.9); Red Blood Count 5.24 M/mm3 (4.6-6.2); White Blood Count 7.2 K/mm3 (4.4-11.0)
[2024-03-29 16:58] LABS: ALB/GLOB Ratio 1.1 RATIO (0.9-2.4); AST(SGOT) 19 U/L (15-37); Alanine Aminotransfer ALT/SGPT 32 U/L (16-61); Albumin, Serum 3.8 g/dL (3.2-5.0); Alkaline Phosphatase 55 U/L (45-117); Anion Gap 5 (5-15); BUN 11 mg/dL (7-18); BUN/Creat Ratio 7.7 RATIO (10-20); Calcium,Total 9.2 mg/dL (8.5-10.1); Chloride 105 mmol/L (98-107); Cholesterol 163 mg/dL (200); Creatinine, Serum 1.43 mg/dL (0.70-1.30); EST Glomerular Filtration Rate 53 mL/min (>60); Est Glom Filt Rate - Afr Amer 64 mL/min (>60); Globulin 3.5 g/dL (2.2-4.2); Glucose 81 mg/dL (74-106); High Density Lipoprotein 35 mg/dL; Potassium 3.9 mmol/L (3.5-5.1); Protein, Total 7.3 g/dL (6.4-8.2); Sodium Level 140 mmol/L (136-145); Triglycerides 212 mg/dL; Very Low Density Lipoprotein 42 mg/dL (5-40)
== END | disposition home or self-care (01) ==
LOC: BIMLAB 15:30
PROVIDERS: PCP Family Medicine; Referring Provider Family Medicine; Visit Provider Family Medicine
DX: I12.9 Hypertensive chronic kidney disease with stage 1 through stage 4 chronic kidney disease, or unspecified chronic kidney disease (principal); N18.1 Chronic kidney disease, stage 1; L60.8 Other nail disorders
CPT/HCPCS: 36415; 80053; 80061; 84153; 85025; G0103

== ENCOUNTER → 2025-02-21 | Outpatient (CLI) | payer BC, SELFPAY | END | disposition home or self-care (01) | LOC: LABSPEC 08:50 | PROVIDERS: PCP Family Medicine; Referring Provider Nurse Practitioner; Visit Provider Nurse Practitioner | DX: R82.90 Unspecified abnormal findings in urine (principal) | CPT/HCPCS: 87086; 87088 ==